=== PATIENT | female | born 1940 | race Caucasian/White ===

== ENCOUNTER 2021-12-28 17:17 | Inpatient (IN) | payer MEDICARE, MEDICAID, SELFPAY ==
--- NOTE | ~2021-12-28 | CT_ITS ---
EXAMINATION: CT ABDOMEN AND PELVIS WITH CONTRAST CLINICAL INFORMATION: Right upper quadrant/flank pain. COMPARISON: Ultrasound from today. TECHNIQUE: Multidetector volumetric images were obtained from the superior aspect of the liver through the pubic symphysis following administration 85 mL of Omnipaque 350 intravenous contrast. Sagittal and coronal reformatted images were obtained on the technologist's workstation. Oral contrast: No This CT examination was performed using dose optimization techniques as appropriate, variously including the following: *Automated exposure control *Adjustment of mA and/or kV according to patient size (this includes techniques or standardized protocols for targeted exams where dose is matched to indication/reason for exam; i.e. extremities or head) *Use of iterative reconstruction technique DLP: 563 mGy-cm FINDINGS: LUNG BASES: The visualized lung bases are unremarkable. LIVER, GALLBLADDER, AND BILIARY TREE: The liver is normal in size, shape, and attenuation. No focal hepatic lesion. There is intrahepatic and extrahepatic biliary ductal dilatation. Normal distention of the gallbladder with internal stones and sludge. No wall thickening or adjacent inflammation. PANCREAS: Unremarkable. SPLEEN: Unremarkable. ADRENAL GLANDS: Unremarkable. KIDNEYS AND URETERS: The kidneys are normal in size, shape, and attenuation. No hydronephrosis, hydroureter, or calculi seen. Right-sided extrarenal pelvis. No perinephric stranding. BLADDER: Limited evaluation due to artifact from left hip arthroplasty hardware. Partially distended with no gross abnormality. GASTROINTESTINAL TRACT: Tiny hiatal hernia. The stomach is otherwise unremarkable. Normal caliber small bowel. No obstruction. No colonic wall thickening or acute inflammation. Moderate colonic stool burden. Diffuse colonic diverticulosis. No diverticulitis. ABDOMINAL WALL: Small ventral abdominal wall hernia in the region of the umbilicus containing a portion of the transverse colon wall. LYMPH NODES: Normal. VASCULAR: Normal caliber aorta with moderate atherosclerotic calcification. PELVIC VISCERA: No pelvic mass. OSSEOUS STRUCTURES: No acute or suspicious osseous abnormality. Degenerative changes throughout the spine. Multilevel vacuum disc phenomenon. Total left hip arthroplasty without evidence of failure. Moderate degenerative change of the right hip. CT/CT abdomen pelvis w con IMPRESSION: Intrahepatic and extrahepatic biliary ductal dilatation again noted as seen on prior ultrasound. Cholelithiasis with gallbladder sludge. No inflammatory changes of the gallbladder. Diffuse colonic diverticulosis without diverticulitis. Small ventral abdominal wall hernia in the region of the umbilicus containing a portion of the transverse colon wall. No inflammatory changes. Fleischner guidelines were followed.
--- NOTE | ~2021-12-28 | MR_ITS ---
EXAMINATION: MR ABDOMEN WITHOUT CONTRAST CLINICAL INFORMATION: Choledocholithiasis COMPARISON: Previous abdominal ultrasound and CT of the abdomen from yesterday TECHNIQUE: MR abdomen is performed without gadolinium contrast. MRCP sequences were also performed. FINDINGS: LUNG BASES: The visualized lung bases are unremarkable. LIVER, GALLBLADDER, AND BILIARY TREE: The liver is normal in size, smooth in contour, and normal in signal. No focal hepatic lesion or biliary ductal dilatation is present. The gallbladder is upper normal in size. There are small gallstones. The gallbladder wall does not appear thickened or edematous. No pericholecystic fluid is seen. There is mild intrahepatic extrahepatic biliary duct dilatation. The common bile duct measures 9 mm. There is a small 3 mm round filling defect in the distal common bile duct suggestive of a common bile duct stone. PANCREAS: Pancreas is normal in signal. There is mild focal dilatation of the distal main pancreatic duct in the head of the pancreas measuring 4 to 5 mm. The remainder of the main pancreatic duct is normal in caliber. SPLEEN: Unremarkable. ADRENAL GLANDS: Unremarkable. KIDNEYS AND URETERS: There are bilateral renal peripelvic cysts. There may be a mild right UPJ obstruction. The kidneys are normal in size and shape. No left hydronephrosis. No perinephric stranding. GASTROINTESTINAL TRACT: There is diverticulosis of the colon. No bowel obstruction. No ascites or fluid collection. ABDOMINAL WALL: There are several small ventral or supraumbilical hernias containing fat. LYMPH NODES: No lymphadenopathy. VASCULAR: Unremarkable. OSSEOUS STRUCTURES: There are degenerative changes of the spine. Marrow signal normal. MR/MR MRCP IMPRESSION: Mild intra and extrahepatic biliary duct dilatation. 3 mm distal common bile duct stone. Upper normal-size gallbladder and small gallstones. No evidence of cholecystitis. Mild dilatation of the distal main pancreatic duct in the head of the pancreas. The main pancreatic duct and pancreas are otherwise normal. Bilateral peripelvic cysts and question mild right UPJ obstruction. Diverticulosis of the colon.
--- NOTE | ~2021-12-28 | US_ITS ---
EXAMINATION: US ABDOMEN LIMITED CLINICAL INFORMATION: Right upper quadrant pain. COMPARISON: None TECHNIQUE: Real-time imaging of the right upper quadrant abdominal viscera. FINDINGS: PANCREAS: The pancreatic head and body are unremarkable. The tail is obscured by gas. LIVER: Normal. The liver is normal in size. The liver contour is normal. Parenchymal echogenicity is normal. No focal hepatic lesion. There is no intrahepatic biliary duct dilatation seen. GALLBLADDER: Cholelithiasis. Gallbladder sludge noted. The gallbladder is physiologically distended without evidence of polyps, wall thickening or pericholecystic fluid. COMMON BILE DUCT: Prominent in caliber measuring 0.9 cm in diameter. There could be sludge in the duct. RIGHT KIDNEY: Normal. No hydronephrosis. No renal calculi or focal parenchymal lesions. The kidney measures 9.8 cm in maximum dimension. FREE FLUID: None. US/US abdomen limited IMPRESSION: Cholelithiasis with gallbladder sludge. Somewhat prominent common bile duct with possible internal sludge. No inflammatory change of the gallbladder.
--- NOTE | ~2021-12-28 | FL_ITS ---
EXAMINATION: XR FLUOROSCOPY WITH IMAGES CLINICAL INFORMATION: Fluoroscopy guidance for ERCP. COMPARISON: MR of the abdomen from yesterday TECHNIQUE: Fluoroscopy performed by Dr. Js Mooney. Fluoroscopy time: 3.5 minutes DAP: 0.8 mGycm2 Images: 18 FINDINGS: There is mild intrahepatic and extrahepatic biliary duct dilatation. A definite common bile duct stone is not appreciated on the submitted images. Final images demonstrate some decompression of the biliary system and passage of contrast into the duodenum. FL/FL guidance in OR IMPRESSION: Fluoroscopy guidance for ERCP.
[2021-12-28 19:24] VITALS: BP 167/83; PULSE 71; RESP 16; TEMP 36.6; O2SAT 99; BMI 25.7
[2021-12-28 19:51] LABS: MANUAL DIFF FLAG NO
[2021-12-28 19:53] LABS: Appearance Urine CLEAR; Basophils Percent Auto 0.2 % (0-2); Color Urine YELLOW; Eosinophils Absolute Auto 0.3 X10*3/uL (0.0-0.4); Eosinophils Percent Auto 2.1 % (0-4); Glucose Urine UA NEG (NEG); Hematocrit 41.2 % (37.0-47.0); Hemoglobin 13.6 g/dl (12.0-16.0); Imm Gran Abs Auto 0.05 X10*3/uL (0.00-0.03); Imm Gran Pct Auto 0.4 % (0.0-0.4); Leukocyte Esterase Urine TRACE (NEG); Lymphocytes Absolute Auto 1.6 X10*3/uL (1.2-4.9); Lymphocytes Percent Auto 12.5 % (20-40); Mean Corpuscular Hemoglobin 31.3 pg (27.0-33.0); Mean Corpuscular Volume 94.7 fL (80.0-98.0); Monocytes Absolute Auto 1.1 X10*3/uL (0.1-1.2); Monocytes Percent Auto 8.8 % (2-11); Neutrophils Absolute Auto 9.6 x10*3/uL (2.0-8.3); Nitrite Urine NEG (NEG); Platelet Count 727 X10*3/uL (160-400); Red Blood Count 4.35 X10*6/uL (4.20-5.50); Red Cell Distribution Width 13.7 % (11.0-16.0); UACC Culture Trigger YES; Urine Blood NEG (NEG); Urine Ketones NEG (NEG); Urine Protein NEG (NEG-TRACE); White Blood Count 12.6 X10*3/uL (4.8-10.8)
[2021-12-28 19:58] LABS: RBC Urine 0 /HPF (0); Squamous Epithelial Cell Urine 1+ /LPF
[2021-12-28 20:06] LABS: Alanine Aminotransferase 17 U/L (0-31); Albumin Level 4.2 g/dL (3.5-5.0); Alkaline Phosphatase 77 U/L (39-117); Anion Gap 12 (12-20); Aspartate Amino Transferase 24 U/L (5-31); Bilirubin Total 0.6 mg/dL (0.0-1.0); Blood Urea Nitrogen 15 mg/dL (9-16); Calcium 9.6 mg/dL (8.4-10.2); Carbon Dioxide 24 mmol/L (22-29); Chloride 108 mmol/L (96-108); Creatinine Clr Calc Pharmacy 58.5; Estimated Glomerular Filt Rate > 60; Glucose Random 95 mg/dL (60-115); Potassium 4.6 mmol/L (3.3-5.1); Sodium 139 mmol/L (135-145)
[2021-12-28 23:06] VITALS: BP 193/71; PULSE 76; RESP 16; O2SAT 98
--- NOTE | 2021-12-28 23:10 | PC.NURSE ---
BP 193/71 notified
--- NOTE | 2021-12-28 23:15 | ECG_ITS ---
Test Reason : HTN Blood Pressure : / mmHG Vent. Rate : 065 BPM Atrial Rate : 065 BPM P-R Int : 182 ms QRS Dur : 130 ms QT Int : 436 ms P-R-T Axes : 030 -09 080 degrees QTc Int : 453 ms Normal sinus rhythm Left bundle branch block Abnormal ECG When compared with ECG of 21-MAR-2018 21:34, Left bundle branch block is now Present Referred By: Nay Hutchinson Electronically Signed By:ANDERSON BUNDY
[2021-12-28 23:29] LABS: Lipase 14 U/L (8-78)
[2021-12-29] VITALS (12 sets, daily range): BP systolic 147–182; BP diastolic 61–81; PULSE 63–69; RESP 6–17; TEMP 36.4–36.7; O2SAT 95–99
[2021-12-29] MEDS: fentaNYL citrate/PF 100 MCG/2 ML VIAL 25 MCG IVPUSH (00:14)
[2021-12-29 00:38] LABS: Troponin-I High Sensitivity 13.7 ng/L (<3.5-17.0)
--- NOTE | 2021-12-29 01:05 | ED_ITS ---
HPI - Abdominal Pain General Chief Complaint: Abdominal Pain Stated Complaint: right side pain for 3 days Time Seen by Provider: 12/28/21 23:13 Source: patient and family Mode of arrival: ambulatory History of Present Illness HPI narrative: 81-year-old female without significant past medical history presents with complaints of intermittent crampy right upper quadrant pain for the past couple weeks and then over the past 4 days states that the pain has become very sharp and constant in nature and is more intense today. She states she has had some intermittent dizziness but otherwise denies nausea, vomiting, diarrhea and denies any urinary pain/burning/frequency. Patient denies any falls. Patient denies any shortness of breath, chest pain/palpitations. Related Data Allergies Allergy/AdvReac Type Severity Reaction Status Date / Time lactose [LACTOSE] Allergy Intermediate ABDOMINAL Unverified 07/24/20 14:42 PAIN codeine [CODEINE] Allergy Unknown HIVES, Unverified 07/24/20 14:42 HEADACHES, hives lactose intolerant Allergy Unknown Uncoded 07/16/16 00:00 Review of Systems Review of Systems Pertinent positives and negatives as stated in HPI 10 point review of systems is otherwise negative. PMFSH Past Medical History Source: nursing notes reviewed Medical History Emphysema of lung Endometrial cancer Surgical History H/O: hysterectomy History of hip replacement Social History Social History Advance Directives: No Physical Exam ED Vital Signs: Vital Signs - 24 hr 12/28/21 19:24 12/28/21 23:06 12/29/21 00:14 Temperature 97.8 F Pulse Rate 71 76 Respiratory Rate 16 16 16 Blood Pressure 167/83 H 193/71 H Pulse Oximetry 99 98 12/29/21 01:04 12/29/21 01:09 Temperature Pulse Rate Respiratory Rate 16 Blood Pressure 182/79 H Pulse Oximetry 98 BMI result Body Mass Index 25.7 VITAL SIGNS: Reviewed. GENERAL: Well developed, well nourished, in no acute distress. HEAD: Normocephalic/atraumatic, EYES: PERRLA, EOMI EARS: Ext canals without abnormality OROPHARYNX: no oral lesions noted, posterior pharynx clear LUNGS: Normal breath sounds. No adventitious sounds or accessory muscle use. SpO2<99> CARDIOVASCULAR: Regular rate and rhythm without noted murmurs, no JVD or lower extremity edema. ABDOMEN: Soft, patient was significant tenderness on palpation over right flank into right upper quadrant, non-distended with bowel sounds. MUSCULOSKELETAL: No tenderness, deformities, or effusions noted on gross inspection. EXTREMITIES: No cyanosis, clubbing or edema. SKIN: Inspection of the skin reveals no rashes NEUROLOGIC: Alert and oriented x 4. Strength and sensation to light touch were grossly intact x 4. Course Course Course Narrative: 81-year-old female with history and clinical presentation suggestive of possible cholecystitis and less likely felt to be pneumonia, choledocholithiasis, renal colic. On review of patient's EKG she is noted to have a new left bundle branch block when compared to EKG from 2018, however patient has no complaints of ches t pain. 0130: Suspect infection Review of all investigations consistent with cholelithiasis and with dilated CBD and the pain that patient has as well as a leukocytosis is all suggestive of possible choledocholithiasis versus resolving cholecystitis although there are no LFT derangements and there was no gallbladder wall thickening or pericholecystic fluid. Patient received antibiotics and on re-evaluation after having received pain medication she states that her pain has gone from 07/17 debbi n to 02/14. I discussed the case with the inpatient hospitalist who accepts admission. MDM - Abdominal Pain Lab Data Result diagrams: 12/28/21 19:44 12/28/21 19:44 Labs: Lab Results 12/28/21 12/28/21 12/28/21 Range/Units 19:44 19:44 19:44 WBC 12.6 H (4.8-10.8) X10*3/uL RBC 4.35 (4.20-5.50) X10*6/uL Hgb 13.6 (12.0-16.0) g/dl Hct 41.2 (37.0-47.0) % MCV 94.7 (80.0-98.0) fL MCH 31.3 (27.0-33.0) pg MCHC 33.0 (31.0-35.0) g/dl RDW 13.7 (11.0-16.0) % Plt Count 727 H (160-400) X10*3/uL MPV 10.0 (9.4-12.3) fL Immature Gran % (Auto) 0.4 (0.0-0.4) % Neut % (Auto) 76.0 H (45-73) % Lymph % (Auto) 12.5 L (20-40) % [place] % (Auto) 8.8 (2-11) % Eos % (Auto) 2.1 (0-4) % Baso % (Auto) 0.2 (0-2) % Lymph # (Auto) 1.6 (1.2-4.9) X10*3/uL [place] # (Auto) 1.1 (0.1-1.2) X10*3/uL Eos # (Auto) 0.3 (0.0-0.4) X10*3/uL Baso # (Auto) 0.0 (0.0-0.2) X10*3/uL Abs Immat Gran (auto) 0.05 H (0.00-0.03) X10*3/uL Absolute Neuts (auto) 9.6 H (2.0-8.3) x10*3/uL Absolute Nucleated RBC 0.000 (0.0-0.012) X10*3/uL Nucleated RBC % (auto) 0.0 (0.0-0.2) /100WBC Sodium 139 (135-145) mmol/L Potassium 4.6 (3.3-5.1) mmol/L Chloride 108 (96-108) mmol/L Carbon Dioxide 24 (22-29) mmol/L Anion Gap 12 (12-20) BUN 15 (9-16) mg/dL Creatinine 0.69 (0.5-1.4) mg/dL Estim Creat Clear Calc 58.5 Estimated GFR > 60 Random Glucose 95 (60-115) mg/dL Calcium 9.6 (8.4-10.2) mg/dL Total Bilirubin 0.6 (0.0-1.0) mg/dL AST 24 (5-31) U/L ALT 17 (0-31) U/L Alkaline Phosphatase 77 (39-117) U/L Troponin I High Sens (<3.5-17.0) ng/L Total Protein 7.0 (6.5-8.0) g/dL Albumin 4.2 (3.5-5.0) g/dL Lipase 14 (8-78) U/L Urine Color YELLOW Urine Appearance CLEAR Urine pH 6.0 (5.0-8.0) Ur Specific [place] 1.020 (1.005-1.025) Urine Protein NEG (NEG-TRACE) MG/DL Urine Glucose (UA) NEG (NEG) MG/DL Urine Ketones NEG (NEG) MG/DL Urine Blood NEG (NEG) Urine Nitrite NEG (NEG) Ur Leukocyte Esterase TRACE H (NEG) Urine RBC 0 (0) /HPF Urine WBC 5-9 H (0-4) /HPF Ur Squamous Epith Cells 1+ /LPF Urine Bacteria NONE /LPF 12/28/21 Range/Units 19:44 WBC (4.8-10.8) X10*3/uL RBC (4.20-5.50) X10*6/uL Hgb (12.0-16.0) g/dl Hct (37.0-47.0) % MCV (80.0-98.0) fL MCH (27.0-33.0) pg MCHC (31.0-35.0) g/dl RDW (11.0-16.0) % Plt Count (160-400) X10*3/uL MPV (9.4-12.3) fL Immature Gran % (Auto) (0.0-0.4) % Neut % (Auto) (45-73) % Lymph % (Auto) (20-40) % [place] % (Auto) (2-11) % Eos % (Auto) (0-4) % Baso % (Auto) (0-2) % Lymph # (Auto) (1.2-4.9) X10*3/uL [place] # (Auto) (0.1-1.2) X10*3/uL Eos # (Auto) (0.0-0.4) X10*3/uL Baso # (Auto) (0.0-0.2) X10*3/uL Abs Immat Gran (auto) (0.00-0.03) X10*3/uL Absolute Neuts (auto) (2.0-8.3) x10*3/uL Absolute Nucleated RBC (0.0-0.012) X10*3/uL Nucleated RBC % (auto) (0.0-0.2) /100WBC Sodium (135-145) mmol/L Potassium (3.3-5.1) mmol/L Chloride (96-108) mmol/L Carbon Dioxide (22-29) mmol/L Anion Gap (12-20) BUN (9-16) mg/dL Creatinine (0.5-1.4) mg/dL Estim Creat Clear Calc Estimated GFR Random Glucose (60-115) mg/dL Calcium (8.4-10.2) mg/dL Total Bilirubin (0.0-1.0) mg/dL AST (5-31) U/L ALT (0-31) U/L Alkaline Phosphatase (39-117) U/L Troponin I High Sens 13.7 (<3.5-17.0) ng/L Total Protein (6.5-8.0) g/dL Albumin (3.5-5.0) g/dL Lipase (8-78) U/L Urine Color Urine Appearance Urine pH (5.0-8.0) Ur Specific [place] (1.005-1.025) Urine Protein (NEG-TRACE) MG/DL Urine Glucose (UA) (NEG) MG/DL Urine Ketones (NEG) MG/DL Urine Blood (NEG) Urine Nitrite (NEG) Ur Leukocyte Esterase (NEG) Urine RBC (0) /HPF Urine WBC (0-4) /HPF Ur Squamous Epith Cells /LPF Urine Bacteria /LPF ECG Data Attestation: I personally reviewed and interpreted this ECG as follows: Prior ECG tracings: available for review Interpretation: NSR, HR-65, LBBB, no STEMI, [place] and QTC are within normal limits. Discharge Plan Discharge Clinical Impression: Right upper quadrant pain, Choledocholithiasis Patient Disposition: Admitted As Inpatient
[2021-12-29] MEDS: iohexoL 350 MG/ML 100 ML INFUS..BTL 85 ML IV (01:25)
--- NOTE | 2021-12-29 02:51 | PM.IMHP ---
History of Present Illness Date of Service: 12/29/21 Chief Complaint: abd pain this is an 81-year-old female with history of emphysema, endometrial cancer status post hysterectomy, and hyperlipidemia who presents to the hospital with complaints of right upper quadrant abdominal pain. Patient reports that her symptoms started 4 days ago, initially intermittent but today the pain was constant, 9/10, radiating to her back, she feels that is worse with food, alleviated by pain medication received in the ED, not associated with any fever or chills, no nausea or vomiting. Patient reports a history of gallstones, reports that she was recommended to have her gallbladder removed about a year ago but refused at that time because she had no significant pain. He denies any diarrhea constipation, reports urinary frequency that is been going on for months, no lower extremity edema. No headache or change in vision. No numbness or tingling or weakness of extremities. On arrival to the ED patient hemodynamically stable Labs are significant for WBC count of 12.6, otherwise unremarkable. UA is positive for leukocyte Estrace and some WBC. Abdominal pelvic CT shows intrahepatic and extrahepatic biliary ductal dilatation, cholelithiasis with gallbladder sludge, no inflammatory changes of the gallbladder. Abdominal ultrasound shows cholelithiasis with gallbladder sludge. Prominent common bile duct with possible internal sludge. Patient will be admitted for further management Review of Systems Review of Systems: Yes all other systems are reviewed and are negative [facility] Medical History (Updated 12/29/21 @ 06:08 by Donell Hart MD) Emphysema of lung Endometrial cancer Hyperlipidemia PVD (peripheral vascular disease) Family History (Updated 12/29/21 @ 06:05 by Donell Hart MD) Other No family history of coronary artery disease Surgical History (Updated 12/29/21 @ 06:05 by Donell Hart MD) H/O: hysterectomy History of hip replacement History of knee replacement Social History (Updated 12/29/21 @ 06:05 by Donell Hart MD) Alcohol intake: current Patient Tobacco Use Status: Former Tobacco user Use of substances other than those prescribed or required for medical reasons: No Advance Directives: No Meds Allergies Allergy/AdvReac Type Severity Reaction Status Date / Time lactose [LACTOSE] Allergy Intermediate ABDOMINAL Unverified 07/24/20 14:42 PAIN codeine [CODEINE] Allergy Unknown HIVES, Unverified 07/24/20 14:42 HEADACHES, hives lactose intolerant Allergy Unknown Uncoded 07/16/16 00:00 Home Medications Medication Instructions Recorded Confirmed Last Taken Type clopidogrel 75 mg tablet 1 tab PO DAILY 12/29/21 12/29/21 Unknown History rosuvastatin 20 mg tablet 1 tab PO DAILY 12/29/21 12/29/21 Unknown History umeclidinium 62.5 mcg/actuation 1 puff PO DAILY 12/29/21 12/29/21 Unknown History blister powder for inhalation (Incruse Ellipta) Physical Exam Vital Signs and Narrative: Vital Signs: Last Vital Signs Temp 97.8 F 12/28/21 19:24 Pulse 76 12/28/21 23:06 Resp 16 12/29/21 01:04 BP 182/79 H 12/29/21 01:09 Pulse Ox 98 12/29/21 01:09 BMI result Body Mass Index 25.7 Const: General: cooperative and no acute distress Orientation/consciousness: patient oriented x3 Eyes: General: appearance normal, both eyes and all related structures Pupils: Equal, round and reactive pupils present Resp: Effort & Inspection: normal respiratory effort Auscultation: clear to auscultation bilaterally Cardio: Rate: regular rate Rhythm: regular rhythm GI: Other: mild tenderness on deep palpation over right upper quadrant, no rebound or guarding Palpation (GI): Soft to palpation Auscultation: normal bowel sounds Skin: General skin exam: no rashes or lesions noted Neuro: General: patient oriented x3 Cranial nerves: Yes Equal, round and reactive pupils present Cognition (Neuro): normal cognition Extrem: General: Yes normal to inspection and Yes no pedal edema Results Labs CBC and Chem 7: 12/28/21 19:44 12/28/21 19:44 Labs: Laboratory Results - last 24 hr 12/28/21 12/28/21 12/28/21 19:44 19:44 19:44 MCV 94.7 MCH 31.3 MCHC 33.0 RDW 13.7 Plt Count 727 H MPV 10.0 Immature Gran % (Auto) 0.4 Neut % (Auto) 76.0 H Lymph % (Auto) 12.5 L [place] % (Auto) 8.8 Eos % (Auto) 2.1 Baso % (Auto) 0.2 Lymph # (Auto) 1.6 [place] # (Auto) 1.1 Eos # (Auto) 0.3 Baso # (Auto) 0.0 Abs Immat Gran (auto) 0.05 H Absolute Neuts (auto) 9.6 H Absolute Nucleated RBC 0.000 Nucleated RBC % (auto) 0.0 Anion Gap 12 Estim Creat Clear Calc 58.5 Estimated GFR > 60 Random Glucose 95 Calcium 9.6 Total Bilirubin 0.6 AST 24 ALT 17 Alkaline Phosphatase 77 Total Protein 7.0 Albumin 4.2 Lipase 14 Urine Color YELLOW Urine Appearance CLEAR Urine pH 6.0 Ur Specific [place] 1.020 Urine Protein NEG Urine Glucose (UA) NEG Urine Ketones NEG Urine Blood NEG Urine Nitrite NEG Ur Leukocyte Esterase TRACE H Urine RBC 0 Urine WBC 5-9 H Ur Squamous Epith Cells 1+ Urine Bacteria NONE Imaging Radiologist's Impressions: Impressions Abdomen Ultrasound 12/29/21 00:50 IMPRESSION: Cholelithiasis with gallbladder sludge. Somewhat prominent common bile duct with possible internal sludge. No inflammatory change of the gallbladder. Abdomen/Pelvis CT 12/29/21 01:25 IMPRESSION: Intrahepatic and extrahepatic biliary ductal dilatation again noted as seen on prior ultrasound. Cholelithiasis with gallbladder sludge. No inflammatory changes of the gallbladder. Diffuse colonic diverticulosis without diverticulitis. Small ventral abdominal wall hernia in the region of the umbilicus containing a portion of the transverse colon wall. No inflammatory changes. Fleischner guidelines were followed. Assessment and Plan (1) Right upper quadrant pain: Status: Acute (2) Choledocholithiasis: Status: Acute (3) Common bile duct dilatation: Status: Acute (4) UTI (urinary tract infection): Status: Acute Plan 81-year-old female with past medical history of asthma fizzy Rell hyperlipidemia presents to the hospital with complaints of abdominal pain in the right upper quadrant. # abdominal pain - likely secondary to cholelithiasis/ choledocholithiasis - no evidence of cholecystitis or cholangitis, patient afebrile, has no elevated bilirubin or LFTs - reports history of gallstones - will consult GI as well as General surgery for possible intervention in a.m. - keep NPO - given her leukocytosis will start her on IV antibiotics # UTI - positive UA - will start on IV antibiotics - follow cultures # history of peripheral vascular disease - continue Plavix # history of emphysema - not in exacerbation - continue home inhaler DVT prophylaxis: SCDs in anticipation of possible surgical intervention Quality Stroke Does the patient have a stroke diagnosis?: No VTE Prior VTE?: No VTE Risk Level:: Medical - moderate - high VTE Device Contraindication: N/A - Device Ordered VTE Drug Contraindication: Treatment Not Indicated
[2021-12-29 02:53] LABS: Lactic Acid 0.8 mmol/L (0.5-2.0)
[2021-12-29 03:22] LABS: COVID-19 Test Negative (Negative)
[2021-12-29] MEDS: cefTRIAXone sodium 1 GM in 0.9 % Sodium Chloride 50 ML IV ×2 (03:28→21:42)
[2021-12-29 06:22] LABS: MANUAL DIFF FLAG NO
[2021-12-29 06:25] LABS: Basophils Percent Auto 0.2 % (0-2); Eosinophils Absolute Auto 0.3 X10*3/uL (0.0-0.4); Eosinophils Percent Auto 2.4 % (0-4); Hematocrit 40.4 % (37.0-47.0); Hemoglobin 13.2 g/dl (12.0-16.0); Imm Gran Abs Auto 0.06 X10*3/uL (0.00-0.03); Imm Gran Pct Auto 0.5 % (0.0-0.4); Lymphocytes Absolute Auto 1.2 X10*3/uL (1.2-4.9); Lymphocytes Percent Auto 9.5 % (20-40); Mean Corpuscular HGB Conc 32.7 g/dl (31.0-35.0); Mean Corpuscular Hemoglobin 31.3 pg (27.0-33.0); Mean Corpuscular Volume 95.7 fL (80.0-98.0); Mean Platelet Volume 10.2 fL (9.4-12.3); Monocytes Absolute Auto 1.1 X10*3/uL (0.1-1.2); Monocytes Percent Auto 8.9 % (2-11); Neutrophils Absolute Auto 9.6 x10*3/uL (2.0-8.3); Neutrophils Percent Auto 78.5 % (45-73); Platelet Count 616 X10*3/uL (160-400); Red Blood Count 4.22 X10*6/uL (4.20-5.50); Red Cell Distribution Width 13.7 % (11.0-16.0); White Blood Count 12.3 X10*3/uL (4.8-10.8)
[2021-12-29 07:05] LABS: Anion Gap 11 (12-20); Blood Urea Nitrogen 13 mg/dL (9-16); Calcium 9.5 mg/dL (8.4-10.2); Carbon Dioxide 28 mmol/L (22-29); Chloride 106 mmol/L (96-108); Creatinine Clr Calc Pharmacy 61.2; Estimated Glomerular Filt Rate > 60; Glucose Random 80 mg/dL (60-115); Potassium 4.4 mmol/L (3.3-5.1); Sodium 141 mmol/L (135-145)
[2021-12-29 07:45] LABS: Alanine Aminotransferase 16 U/L (0-31); Albumin Level 3.9 g/dL (3.5-5.0); Alkaline Phosphatase 75 U/L (39-117); Aspartate Amino Transferase 22 U/L (5-31); Bilirubin Direct 0.3 mg/dL (0.0-0.5); Bilirubin Total 0.6 mg/dL (0.0-1.0); Total Protein 6.4 g/dL (6.5-8.0)
--- NOTE | 2021-12-29 10:05 | MHC.CM.PN ---
PT REPORTS SHE LIVES ALONE IN A SENIOR HOUSING COMPLEX PT REPORTS SHE HAS NO HOME SERVICES BUT THERE IS A NITRATOR OPERATOR AVAILABLE PRN PT REPORTS SHE DOES NOT USE DME FOR AMBULATION BUT DOES HAVE GRAB BARS AND A SHOWER SEAT IN HER BATHROOM. PT REPORTS SHE WAS SEEING LUCIE DORSEY FOR PRIMARY CARE HOWEVER HE LEFT THE PRACTICE IN NOVEMBER, SHE REPORTS SHE HAS AN APPOINTMENT WITH A NURSE PRACTITIONER AT THE OFFICE ON December BUT DOES NOT REMEMBER THE NAME. PT COMPLETED A NEW HCP TODAY SHE DOES NOT THINK SHE HAS A COPY OF THE ONE PREVIOUSLY COMPLETED. PT NAMED HER TWO DAUGHTERS, CAITIE ROMERO ([phone]) AND MIKY LEAL ([phone]) HER PRIMARY AND ALTERNATE AGENTS RESPECTIVELY PT REPORTS SHE RECEIVED TWO OF THE [employer] VACCINES FOR COVID-19 AND A MODERNA BOOSTER. IMM DELIVERED, COPY SENT TO [facility] CURRENT DC PLAN IS HOME WITH NO SERVICES FAMILY TO TRANSPORT
--- NOTE | 2021-12-29 10:52 | PM.CNGS ---
History of Present Illness Consult details Consult date: 12/29/21 <Maggie Turpin PA-C - Last Filed: 12/29/21 14:20> Reason for consult: gallstones (dilated CBD ) <Maggie Turpin PA-C - Last Filed: 12/29/21 14:20> Requesting physician: Donell Hart <Maggie Turpin PA-C - Last Filed: 12/29/21 14:20> Narrative: 81 year old female with PMH significant for emphysema, HLD, hx of uterine CA, who presented to the ED with complaints of RUQ pain. She reports this began 4-5 days ago. It initially was intermittent but it became more severe and constant prompting her to seek care in the ED yesterday. She developed nausea without vomiting when the pain increased. She denies any provoking factors but does endorse eating fattier foods before the pain became severe. She reports multiple prior episodes of similar RUQ beginning 3-4 years ago. She saw her PCP and was diagnosed with gallstones but didn't think the pain was bad enough to have surgery at that time. She reports occasional episodes that resolved quickly but reports the episodes have been increasing in frequency and severity over the past month. She reports she has not been eating as healthy over this time. She denies fever, chills, diarrhea, change in skin, urine or stool color. Work up in the ED included ABD US/CT scan which showed gallstones and dilated intra/extrahepatic biliary ducts. LFTs have been normal. She does have a leukocytosis. UA positive for WBCs and leukocyte esterase. She was admitted to the medicine service. She is on ceftriaxone for the UTI and surgery was consulted with the dilated CBD duct and gallstones. She does report mild improvement in pain with analgesics but it is still present. She does have emphysema and reports she can walk up two flights of stairs prior to developing shortness of breath. She is on plavix and her last dose was yesterday. <Maggie Turpin PA-C - Last Filed: 12/29/21 14:20> Review of Systems Constitutional: Constitutional: Denies chills, Denies fever(s), Denies malaise and Denies poor appetite <Maggie Turpin PA-C - Last Filed: 12/29/21 14:20> ENT: Denies dizziness <Maggie Turpin PA-C - Last Filed: 12/29/21 14:20> Cardiovascular: Cardiovascular: Denies chest pain, Denies palpitations and Reports dyspnea on exertion <Maggie Turpin PA-C - Last Filed: 12/29/21 14:20> Respiratory: Respiratory: Reports dyspnea on exertion <Maggie Turpin PA-C - Last Filed: 12/29/21 14:20> Gastrointestinal: Gastrointestinal: Reports as per HPI, Reports abdominal pain, Denies change in bowel habits, Denies diarrhea, Reports nausea and Denies vomiting <Maggie Turpin PA-C - Last Filed: 12/29/21 14:20> Genitourinary: Genitourinary: Denies hematuria, Denies dysuria and Reports pelvic pain <Maggie Turpin PA-C - Last Filed: 12/29/21 14:20> Integumentary/Breasts: Skin/Breast: Denies rash and Denies jaundice <Maggie Turpin PA-C - Last Filed: 12/29/21 14:20> Neurologic: Denies dizziness and Denies focal weakness <Maggie Turpin PA-C - Last Filed: 12/29/21 14:20> Endocrine: Endocrine: Denies palpitations <Maggie Turpin PA-C - Last Filed: 12/29/21 14:20> PMF Past Medical History Medical History: Medical History (Updated 12/29/21 @ 10:53 by Maggie Turpin PA-C) Emphysema of lung Endometrial cancer Hyperlipidemia PVD (peripheral vascular disease) <Maggie Turpin PA-C - Last Filed: 12/29/21 14:20> Family History Family History: Family History (Updated 12/29/21 @ 06:05 by Donell Hart MD) Other No family history of coronary artery disease <Maggie Turpin PA-C - Last Filed: 12/29/21 14:20> Surgical History Surgical History: Surgical History (Updated 12/29/21 @ 06:05 by Donell Hart MD) H/O: hysterectomy History of hip replacement History of knee replacement <Maggie Turpin PA-C - Last Filed: 12/29/21 14:20> Social History Social History: Social History (Updated 12/29/21 @ 06:05 by Donell Hart MD) Alcohol intake: current Patient Tobacco Use Status: Former Tobacco user Use of substances other than those prescribed or required for medical reasons: No Advance Directives: No service: No Current occupational status: retired <Maggie Turpin PA-C - Last Filed: 12/29/21 14:20> Meds Allergies/Adverse reactions: Allergies Allergy/AdvReac Type Severity Reaction Status Date / Time lactose [LACTOSE] Allergy Intermediate ABDOMINAL Unverified 07/24/20 14:42 PAIN codeine [CODEINE] Allergy Unknown HIVES, Unverified 07/24/20 14:42 HEADACHES, hives lactose intolerant Allergy Unknown Uncoded 07/16/16 00:00 <JCARLOS Liu Last Filed: 12/29/21 14:20> Active Medications: Current Medications Acetaminophen (Acetaminophen 325 Mg Tablet) 650 mg PO Q6H PRN PRN Reason: Pain, Mild (Pain Scale 1-3) Docusate Sodium (Docusate Sodium 100 Mg Capsule) 100 mg PO DAILY PRN PRN Reason: Constipation Ceftriaxone Sodium 1 gm/ (Sodium Chloride) 50 mls @ 100 mls/hr IV 2200 DANIEL Last Infusion: 12/29/21 03:58 Dose: Infused Documented by: Morphine Sulfate (Morphine Sulfate 4 Mg/Ml Cartridge) 4 mg IVPUSH Q4H PRN; Protocol PRN Reason: Pain, Severe (Pain Scale 7-10) Ondansetron HCl (Ondansetron Hcl 4 Mg/2 Ml Vial) 4 mg IVPUSH Q8H PRN PRN Reason: Nausea and Vomiting Sodium Chloride (0.9 % Sodium Chloride Flush 3 Ml Syringe) 3 ml IVFLUSH QSHIFT [facility] <JCARLOS Liu Last Filed: 12/29/21 14:20> Home medications: Home Medications Medication Instructions Recorded Confirmed Last Taken Type clopidogrel 75 mg tablet 1 tab PO DAILY 12/29/21 12/29/21 Unknown History rosuvastatin 20 mg tablet 1 tab PO DAILY 12/29/21 12/29/21 Unknown History umeclidinium 62.5 mcg/actuation 1 puff PO DAILY 12/29/21 12/29/21 Unknown History blister powder for inhalation (Incruse Ellipta) <Maggie Turpin PA-C Last Filed: 12/29/21 14:20> Physical Exam Vital Signs: Vital Signs: Last Vital Signs Temp 97.6 F 12/29/21 10:46 Pulse 69 12/29/21 10:46 Resp 17 12/29/21 10:46 BP 173/61 H 12/29/21 10:46 Pulse Ox 96 12/29/21 10:46 BMI result Body Mass Index 25.7 <Maggie Turpin PA-C Last Filed: 12/29/21 14:20> Const: General: comfortable, no acute distress and alert <Maggie Turpin PA-C Last Filed: 12/29/21 14:20> Orientation/consciousness: patient oriented x3 <Maggie Turpin PA-C Last Filed: 12/29/21 14:20> Resp: Effort & Inspection: normal respiratory effort and able to speak in complete sentences <Maggie Turpin PA-C Last Filed: 12/29/21 14:20> Cardio: Rate: regular rate <Maggie Turpin PA-C Last Filed: 12/29/21 14:20> GI: Inspection: No distended and Yes scar (midline, RLQ) <Maggie Turpin PA-C Last Filed: 12/29/21 14:20> Palpation (GI): Soft to palpation, Tenderness to palpation present (GI) in the RUQ and Lewis's sign positive and not rigid <Maggie Turpin PA-C Last Filed: 12/29/21 14:20> Percussion: Yes normal to percussion <Maggie Turpin PA-C Last Filed: 12/29/21 14:20> Skin: Other: warm and dry <JCARLOS Liu Last Filed: 12/29/21 14:20> General skin exam: no rashes or lesions noted <Maggie Turpin PA-C Last Filed: 12/29/21 14:20> Neuro: General: patient oriented x3 <Maggie Turpin PA-C - Last Filed: 12/29/21 14:20> Extrem: General: Yes no clubbing, cyanosis or edema <Maggie Turpin PA-C - Last Filed: 12/29/21 14:20> Results Labs Result diagrams: : 12/29/21 06:05 12/29/21 06:05 <Maggie Turpin PA-C - Last Filed: 12/29/21 14:20> Labs: Abnormal lab results 12/28/21 12/28/21 12/29/21 Range/Units 19:44 19:44 06:05 WBC 12.6 H 12.3 H (4.8-10.8) X10*3/uL Plt Count 727 H 616 H (160-400) X10*3/uL Immature Gran % (Auto) 0.5 H (0.0-0.4) % Neut % (Auto) 76.0 H 78.5 H (45-73) % Lymph % (Auto) 12.5 L 9.5 L (20-40) % Abs Immat Gran (auto) 0.05 H 0.06 H (0.00-0.03) X10*3/uL Absolute Neuts (auto) 9.6 H 9.6 H (2.0-8.3) x10*3/uL Anion Gap (12-20) Total Protein (6.5-8.0) g/dL Ur Leukocyte Esterase TRACE H (NEG) Urine WBC 5-9 H (0-4) /HPF 12/29/21 Range/Units 06:05 WBC (4.8-10.8) X10*3/uL Plt Count (160-400) X10*3/uL Immature Gran % (Auto) (0.0-0.4) % Neut % (Auto) (45-73) % Lymph % (Auto) (20-40) % Abs Immat Gran (auto) (0.00-0.03) X10*3/uL Absolute Neuts (auto) (2.0-8.3) x10*3/uL Anion Gap 11 L (12-20) Total Protein 6.4 L (6.5-8.0) g/dL Ur Leukocyte Esterase (NEG) Urine WBC (0-4) /HPF Short CBC 12/28/21 12/29/21 Range/Units 19:44 06:05 WBC 12.6 H 12.3 H (4.8-10.8) X10*3/uL Hgb 13.6 13.2 (12.0-16.0) g/dl Hct 41.2 40.4 (37.0-47.0) % Plt Count 727 H 616 H (160-400) X10*3/uL BMP 12/28/21 12/29/21 19:44 06:05 Sodium 139 141 Potassium 4.6 4.4 Chloride 108 106 Carbon Dioxide 24 28 BUN 15 13 Creatinine 0.69 0.66 Calcium 9.6 9.5 Liver Function 12/28/21 12/29/21 Range/Units 19:44 06:05 Total Bilirubin 0.6 0.6 (0.0-1.0) mg/dL Direct Bilirubin 0.3 (0.0-0.5) mg/dL AST 24 22 (5-31) U/L ALT 17 16 (0-31) U/L Alkaline Phosphatase 77 75 (39-117) U/L Albumin 4.2 3.9 (3.5-5.0) g/dL Urine 12/28/21 Range/Units 19:44 Urine Color YELLOW Urine Appearance CLEAR Urine pH 6.0 (5.0-8.0) Ur Specific [place] 1.020 (1.005-1.025) Urine Protein NEG (NEG-TRACE) MG/DL Urine Glucose (UA) NEG (NEG) MG/DL All other labs normal. <Maggie Turpin PA-C - Last Filed: 12/29/21 14:20> Assessment and Plan (1) Common bile duct dilatation: Status: Acute <JCARLOS Liu Last Filed: 12/29/21 14:20> (2) Gallstones: Status: Acute <JCARLOS Liu Last Filed: 12/29/21 14:20> (3) UTI (urinary tract infection): Status: Acute <JCARLOS Liu Last Filed: 12/29/21 14:20> Plan 81 year old female with complaints of RUQ pain for 4-5 days with gallstones, biliary ductal dilatation without signs of acute cholecystitis on imaging with normal LFTs. There are no signs suggestive of acute cholecystitis on imaging however she is tender in the RUQ with a positive lewis's sign and her history does suggest biliary colic, likely early acute cholecysitis. She may have also passed a stone causing the biliary ductal dilatation. Will order for MRCP to evaluate biliary system; agree with GI consult. She reports frustation with increasing frequency of RUQ pain and would like her gallbladder out. Will proceed with laparoscopic, possible open cholecystectomy if CBD clear. This would be in the next few days as she is on plavix and her last dose was yesterday. Await imaging for further plan/timeline. On ceftriaxone for UTI. Case discussed with Dr. Luque. <Maggie Turpin PA-C - Last Filed: 12/29/21 14:20> 81 year old female with complaints of RUQ pain for 4-5 days with gallstones, biliary ductal dilatation without signs of acute cholecystitis on imaging with normal LFTs. There are no signs suggestive of acute cholecystitis on imaging however she is tender in the RUQ with a positive lewis's sign and her history does suggest biliary colic, likely early acute cholecysitis. She may have also passed a stone causing the biliary ductal dilatation. Will order for MRCP to evaluate biliary system; agree with GI consult. She reports frustation with increasing frequency of RUQ pain and would like her gallbladder out. Will proceed with laparoscopic, possible open cholecystectomy if CBD clear. This would be in the next few days as she is on plavix and her last dose was yesterday. Await imaging for further plan/timeline. On ceftriaxone for UTI. Case discussed with Dr. Luque. Briefly, as noted above, patient is an 81-year-old female patient presenting with complaints of right upper quadrant abdominal pain 4-5 days increasing in severity associated with some nausea without vomiting. She subsequently presented to the emergency department when the pain did not improve. Workup in the emergency department with CT abdomen and pelvis revealed a mildly dilated common bile duct with possibility of gallstones within the common bile duct. Patient apparently has been having symptoms in her upper abdomen for several months but was awaiting a new PCP before having this evaluated. On examination the patient does have a tenderness in the epigastrium and right upper quadrant. There is a positive Lewis sign. Findings are suggestive of biliary colic. Agree with the above assessment and plan. GI consultation for evaluation of the possible common bile duct stones. Laparoscopic cholecystectomy could potentially be performed during this admission. Patient expressed understanding and agrees with the plan. <Chavo Luque MD - Last Filed: 12/29/21 15:26> Procedures Date of Service Date of Service: 12/29/21 <Maggie Turpin PA-C - Last Filed: 12/29/21 14:20>
[2021-12-29] MEDS: 0.9 % Sodium Chloride Flush 3 ML SYRINGE IVFLUSH (11:27)
[2021-12-29] MEDS: ondansetron HCL 4 MG/2 ML VIAL IVPUSH (11:27)
[2021-12-29] MEDS: Morphine Sulfate 4 MG/ML CARTRIDGE IVPUSH ×2 (11:27→16:00)
--- NOTE | 2021-12-29 14:54 | P.EN_ITS ---
Event Note Date of Service: 12/29/21 Event Note: Patient still has right upper quadrant pain, LFT seems normal Denies any nausea or vomiting or fever chills or chest pain or shortness of breath. Physical exam: Unchanged from H&P. Assessment plan: Please see H&P note In addition discussed the case with GI: Since LFTs are normal, recommended to hold off on MRI Continue IV Dilaudid for pain control, and pavilion cutter.o. Surgery evaluation noted- plan to hold Plavix, in anticipation of laparoscopic juláin.
--- NOTE | 2021-12-29 15:20 | P.CNGI_ITS ---
History of Present Illness Data of Consult Service Date: 12/29/21 Requesting physician: Donell Hart Primary Care Provider: Unknown Physician HPI Reason for consult: RUQ pain, dilated bile duct on abd CT scan 81 YF seen at [facility] ED early am today with abdominal pain: 81-year-old female without significant past medical history presents with complaints of intermittent crampy right upper quadrant pain for the past couple weeks and then over the past 4 days states that the pain has become very sharp and constant in nature and is more intense today.? She states she has had some intermittent dizziness but otherwise denies nausea, vomiting, diarrhea and denies any urinary pain/burning/frequency.? Patient denies any falls.? Patient denies any shortness of breath, chest pain/palpitations . He denies any diarrhea constipation,? reports urinary frequency that is been going on for? months, no lower extremity edema.? No headache or change in vision.? No numbness or tingling or weakness of extremities.? On arrival to the ED patient hemodynamically stable Labs showed WBC count of 12.6, otherwise unremarkable.? UA is positive for leukocyte Estrace and some WBC. Patient was admitted for further management Hx obtained from the patient with daughter at bedside. Pt reports being diagnosed with gallstones 2 yrs ago. She notes that she was advised to have her gallbladder removed about a year ago but refused at that time because she only had infrequent pain.? She has had intermittent self limited RUQ pain initially every 3-4 months increasing in frequency to every week. For the past 2-3 days she has noted constant throbbing RUQ pain radiating to her back. Pain was 10/10 in intensity when she came to the ED early this morning - worst pain she had ever had . Pt notes nausea with some regurgitation and denies fever chills and sweating She notes intermittent heartburn and takes OTC ranitidine. Pt denies recent change in appetite or weight or bowel habits - she has constipation with intermittent hard stools Patient denies major cardiac or pulmonary problems.. Pt is on Plavix for PVD. Patient denies known family history of colon polyps, colon cancer or other GI malignancies. Mom had gallstones. IMAGING STUDIES: 12/29/21 ABD US SHOWED: Cholelithiasis with gallbladder sludge. Somewhat prominent common bile duct with possible internal sludge. No inflammatory change of the gallbladder. 12/29/[address] SCAN SHOWED: Intrahepatic and extrahepatic biliary ductal dilatation again noted as seen on prior ultrasound. Cholelithiasis with gallbladder sludge. No inflammatory changes of the gallbladder. ? Diffuse colonic diverticulosis without diverticulitis.? ? Small ventral abdominal wall hernia in the region of the umbilicus containing a portion of the transverse colon wall. No inflammatory changes. Review of Systems Constitutional: Constitutional: Denies chills, Denies fever(s), Denies malaise and Denies poor appetite ENT: Denies dizziness Cardiovascular: Cardiovascular: Denies chest pain, Denies palpitations and Reports dyspnea on exertion Respiratory: Respiratory: Reports dyspnea on exertion Gastrointestinal: Gastrointestinal: Reports as per HPI, Reports abdominal pain, Denies change in bowel habits, Denies diarrhea, Reports nausea and Denies vomiting Genitourinary: Genitourinary: Denies hematuria, Denies dysuria and Reports pelvic pain Integumentary/Breasts: Skin/Breast: Denies rash and Denies jaundice Neurologic: Denies dizziness and Denies focal weakness Endocrine: Endocrine: Denies palpitations [facility] Past Medical History Medical History (Updated 12/29/21 @ 10:53 by Maggie Turpin PA-C) Emphysema of lung Endometrial cancer Hyperlipidemia PVD (peripheral vascular disease) Family History Family History (Updated 12/29/21 @ 06:05 by Donell Hart MD) Other No family history of coronary artery disease Surgical History Surgical History (Updated 12/29/21 @ 06:05 by Donell Hart MD) H/O: hysterectomy History of hip replacement History of knee replacement Social History Social History (Updated 12/29/21 @ 06:05 by Donell Hart MD) Alcohol intake: current Patient Tobacco Use Status: Former Tobacco user service: No Current occupational status: retired [employer] Allergies Allergy/AdvReac Type Severity Reaction Status Date / Time lactose [LACTOSE] Allergy Intermediate ABDOMINAL Verified 12/29/21 15:59 PAIN codeine [CODEINE] Allergy Unknown HIVES, Verified 12/29/21 15:59 HEADACHES, hives lactose intolerant Allergy Unknown Abdominal Uncoded 12/29/21 15:59 Pain Active Medications: Current Medications Acetaminophen (Acetaminophen 325 Mg Tablet) 650 mg PO Q6H PRN PRN Reason: Pain, Mild (Pain Scale 1-3) Docusate Sodium (Docusate Sodium 100 Mg Capsule) 100 mg PO DAILY PRN PRN Reason: Constipation Ceftriaxone Sodium 1 gm/ (Sodium Chloride) 50 mls @ 100 mls/hr IV 2200 DANIEL Last Infusion: 12/29/21 03:58 Dose: Infused Documented by: Morphine Sulfate (Morphine Sulfate 4 Mg/Ml Cartridge) 4 mg IVPUSH Q4H PRN; Protocol PRN Reason: Pain, Severe (Pain Scale 7-10) Last Admin: 12/29/21 11:27 Dose: 4 mg Documented by: Ondansetron HCl (Ondansetron Hcl 4 Mg/2 Ml Vial) 4 mg IVPUSH Q8H PRN PRN Reason: Nausea and Vomiting Last Admin: 12/29/21 11:27 Dose: 4 mg Documented by: Sodium Chloride (0.9 % Sodium Chloride Flush 3 Ml Syringe) 3 ml IVFLUSH QSHIFT [facility] Last Admin: 12/29/21 11:27 Dose: 3 ml Documented by: Home Medications Medication Instructions Recorded Confirmed Last Taken Type clopidogrel 75 mg tablet 1 tab PO DAILY 12/29/21 12/29/21 Unknown History rosuvastatin 20 mg tablet 1 tab PO DAILY 12/29/21 12/29/21 Unknown History umeclidinium 62.5 mcg/actuation 1 puff PO DAILY 12/29/21 12/29/21 Unknown History blister powder for inhalation (Incruse Ellipta) Physical Exam Vital Signs: Vital Signs: Last Vital Signs Temp 98.1 F 12/29/21 15:18 Pulse 65 12/29/21 15:18 Resp 14 12/29/21 15:18 BP 152/61 H 12/29/21 15:18 Pulse Ox 95 12/29/21 15:18 BMI result Body Mass Index 25.7 Const: General: no acute distress and anxious Nutritional Appearance: average body habitus Orientation/consciousness: patient oriented x3 Limitations: no limitations HENMT: Head: Yes normal to inspection Ears: hearing grossly normal bilaterally Mouth: Normal oral and palatal mucosa present Eyes: Sclerae: sclerae normal Pupils: Equal, round and reactive pupils present Neck: Neck: Yes normal visual inspection Chest: Chest palpation & inspection: normal inspection of the chest Resp: Effort & Inspection: normal respiratory effort Auscultation: clear to auscultation bilaterally Cardio: Palpation: normal PMI Rate: regular rate Rhythm: regular rhythm Heart sounds: S1 normal heart sound present, S2 normal heart sound present and no murmurs GI: Palpation (GI): Soft to palpation, Tenderness to palpation present (GI) (Moderate RUQ tenderness) and No hepatosplenomegaly present Auscultation: normal bowel sounds Rectal Exam - Female: deferred Skin: General skin exam: no rashes or lesions noted Neuro: General: patient oriented x3, gait normal and moves all extremities Cranial nerves: Yes Equal, round and reactive pupils present Psych: Appearance: grossly normal Mental Status: mental status grossly normal Results Labs CBC & Chem 7: 12/29/21 06:05 12/29/21 06:05 Labs: Short CBC 12/28/21 12/29/21 Range/Units 19:44 06:05 WBC 12.6 H 12.3 H (4.8-10.8) X10*3/uL Hgb 13.6 13.2 (12.0-16.0) g/dl Hct 41.2 40.4 (37.0-47.0) % Plt Count 727 H 616 H (160-400) X10*3/uL BMP 12/28/21 12/29/21 19:44 06:05 Sodium 139 141 Potassium 4.6 4.4 Chloride 108 106 Carbon Dioxide 24 28 BUN 15 13 Creatinine 0.69 0.66 Calcium 9.6 9.5 Liver Function 12/28/21 12/29/21 Range/Units 19:44 06:05 Total Bilirubin 0.6 0.6 (0.0-1.0) mg/dL Direct Bilirubin 0.3 (0.0-0.5) mg/dL AST 24 22 (5-31) U/L ALT 17 16 (0-31) U/L Alkaline Phosphatase 77 75 (39-117) U/L Albumin 4.2 3.9 (3.5-5.0) g/dL Urine 12/28/21 Range/Units 19:44 Urine Color YELLOW Urine Appearance CLEAR Urine pH 6.0 (5.0-8.0) Ur Specific [place] 1.020 (1.005-1.025) Urine Protein NEG (NEG-TRACE) MG/DL Urine Glucose (UA) NEG (NEG) MG/DL Microbiology Microbiology Results: Microbiology 12/28/21 19:54 Urine clean catch - Urine grant top Urine Culture - Preliminary No growth to date. Assessment and Plan (1) Gallstones: Status: Acute (2) Right upper quadrant pain: Status: Acute Plan 81 YF with hyperlipidemia, peripheral vascular disease (On Plavix) and gallstones admitted with iintermittent crampy RUQ pain for the past few weeks and more constant and sharp pain over the past 3-4 days. Abd US showed Cholelithiasis with gallbladder sludge and somewhat prominent common bile duct with possible internal sludge. Abd CT scan showed Intrahepatic and extrahepatic biliary ductal dilatation, Cholelithiasis with gallbladder sludge. No inflammatory changes of the gallbladder. LFTs and lipase were normal. Constant RUQ pain suggestive of cholecystitis. Dilated CBD and IHD most likely due to possible ampulary stenosis from long standing gallstone disease with passage of sludge through the papilla. RECOMMENDATIONS: 1. Agree with plans by surgery to proceed with Lap Junie 2. Continue symptomatic management with IV antiemetics and narcotics for pain control 3. Since patient's LFTs are normal, ERCP is not recommended (pt was discussed with Dr Mooney) Procedures Date of Service Date of Service: 12/29/21
[2021-12-29] MEDS: Lactated Ringers 1,000 ML 80 ML IVCONT (17:47)
[2021-12-29] MEDS: Acetaminophen 325 MG TABLET 650 MG PO (23:27)
[2021-12-30 00:53] VITALS: RESP 18
[2021-12-30] MEDS: Morphine Sulfate 4 MG/ML CARTRIDGE IVPUSH ×2 (00:53→08:58)
[2021-12-30 03:15] VITALS: BP 175/72; PULSE 64; RESP 16; TEMP 36.3; O2SAT 96
[2021-12-30 06:13] LABS: Anion Gap 17 (12-20); Blood Urea Nitrogen 15 mg/dL (9-16); Calcium 9.3 mg/dL (8.4-10.2); Carbon Dioxide 23 mmol/L (22-29); Chloride 104 mmol/L (96-108); Creatinine Clr Calc Pharmacy 56.1; Estimated Glomerular Filt Rate > 60; Glucose Random 64 mg/dL (60-115); Potassium 5.7 mmol/L (3.3-5.1); Sodium 138 mmol/L (135-145)
[2021-12-30] MEDS: Lactated Ringers 1,000 ML 80 ML IVCONT (06:23)
[2021-12-30 07:17] VITALS: BP 169/93; PULSE 67; RESP 18; TEMP 36.2; O2SAT 97
[2021-12-30] MEDS: 0.9 % Sodium Chloride 1,000 ML 80 ML IVCONT ×2 (08:27→22:12)
[2021-12-30] MEDS: Sodium Zirconium Cyclosilicate 10 GM POWD.PACK PO (08:27)
[2021-12-30] MEDS: LORazepam 2 MG/ML VIAL 0.5 MG IVPUSH (08:51)
[2021-12-30 11:33] VITALS: BP 154/68; PULSE 81; RESP 18; TEMP 36.6; O2SAT 94
--- NOTE | 2021-12-30 13:15 | HO.PM.IMPN ---
Subjective Subjective Date of Service: 12/30/21 Interval History: ruq pain Review of Systems Patient still has right upper quadrant pain, denies any chest pain or shortness of breath of. No fever or chills. No nausea or vomiting. Physical Exam Vital Signs: Vital Signs: Last Vital Signs Temp 97.8 F 12/30/21 11:33 Pulse 81 12/30/21 11:33 Resp 18 12/30/21 11:33 BP 154/68 H 12/30/21 11:33 Pulse Ox 94 12/30/21 11:33 BMI result Body Mass Index 25.7 Appearance: Alert.? Oriented X3.? not in distress.? Eyes: Pupils equal, round and reactive to light.eyes anicteric cvs: rrr, [id number] , no murmur res: clear to auscultation ,no rhonchii or wheezing abd: no rebound or guarding ,ruq pain, bs present. ext pulses present , no cyanosis. neuro: axo3 , nonfocal. Objective Data Active Medications Acetaminophen (Acetaminophen 325 Mg Tablet) 650 mg PO Q6H PRN PRN Reason: Pain, Mild (Pain Scale 1-3) Last Admin: 12/29/21 23:27 Dose: 650 mg Documented by: TODD Docusate Sodium (Docusate Sodium 100 Mg Capsule) 100 mg PO DAILY PRN PRN Reason: Constipation Ceftriaxone Sodium 1 gm/ (Sodium Chloride) 50 mls @ 100 mls/hr IV 2200 [facility] Last Infusion: 12/29/21 22:21 Dose: 0 mls/hr Documented by: TODD Sodium Chloride (Ns) 1,000 mls @ 80 mls/hr IVCONT .[id number] [facility] Last Admin: 12/30/21 08:27 Dose: 80 mls/hr Documented by: CONY Morphine Sulfate (Morphine Sulfate 2 Mg/Ml Cartridge) 2 mg IVPUSH Q3H PRN; Protocol PRN Reason: Pain, Severe (Pain Scale 7-10) Ondansetron HCl (Ondansetron Hcl 4 Mg/2 Ml Vial) 4 mg IVPUSH Q8H PRN PRN Reason: Nausea and Vomiting Last Admin: 12/29/21 11:27 Dose: 4 mg Documented by: JOSE G Oxycodone HCl (Oxycodone Hcl Immed Release 5 Mg Tablet) 5 mg PO Q4H PRN PRN Reason: Pain, Moderate (Pain Scale 4-6 Sodium Chloride (0.9 % Sodium Chloride Flush 3 Ml Syringe) 3 ml IVFLUSH QSHIFT [facility] Last Admin: 12/30/21 08:35 Dose: Not Given Documented by: CONY Non-Admin Reason: IV Running Labs CBC & Chem 7: 12/29/21 06:05 12/30/21 05:31 Labs: Laboratory Results - last 24 hr 12/30/21 05:31 Anion Gap 17 Estim Creat Clear Calc 56.1 Estimated GFR > 60 Random Glucose 64 Calcium 9.3 Microbiology Microbiology Results: Microbiology 12/28/21 19:54 Urine Culture - Final Urine clean catch - Urine grant top No growth. 12/29/21 03:24 Blood Culture - Preliminary Blood - Venous No growth after 24 hours. 12/29/21 02:36 Blood Culture - Preliminary Blood - Venous No growth after 24 hours. Assessment and Plan (1) UTI (urinary tract infection): Status: Acute (2) Right upper quadrant pain: Status: Acute Plan 81-year-old female with past medical history of asthma jose david Wittan hyperlipidemia presents to the hospital with complaints of abdominal pain in the right upper quadrant. 1. abdominal pain-? likely secondary to cholelithiasis/ choledocholithiasis -? no evidence of cholecystitis or cholangitis, patient afebrile, has no? elevated bilirubin or LFTs -? 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 Surgery evaluation noted- plan to hold Plavix, in anticipation of laparoscopic julián General surgery follwoin 2.? UTI -? positive UA -? will start on IV antibiotics -? follow cultures 3.? history of peripheral vascular disease -? continue? Plavix 4.? history of? emphysema - ? not in exacerbation -? continue home inhaler ?DVT prophylaxis:? SCDs in anticipation of possible surgical intervention Quality Stroke Does the patient have a stroke diagnosis?: No VTE Prior VTE?: No VTE Risk Level:: Medical - moderate - high VTE Device Contraindication: N/A - Device Ordered VTE Drug Contraindication: Treatment Not Indicated
--- NOTE | 2021-12-30 14:43 | PM.EVENT ---
Event Note Date of Service: 12/30/21 Event Note: GI Patient seen at the request of Dr Vasquez No complaints of abdominal pain at this time. vss lungs clear heart normal s1 s2 abdomen is soft and nontender labs and MRI reviewed. I discussed ERCP including risks and benefits with the patient She understands these and agrees to proceed. We will schedule for 01/01 as last dose of plavix was 12/28.
--- NOTE | 2021-12-30 14:48 | MHC.SHP ---
Pre-Procedural Eval Section A Date of Service: 12/30/21 The patient is an INPATIENT: Yes Changes since office visit: No Cold of Flu in the past 2 weeks, No New Medical Problems, No Changes in Medication and No Patient answered all questions The History & Physical has been completed within 30 days and I have reviewed it.: Yes Section B Chief Complaint: abd pain Allergies: Allergies Allergy/AdvReac Type Severity Reaction Status Date / Time lactose [LACTOSE] Allergy Intermediate ABDOMINAL Verified 12/29/21 15:59 PAIN codeine [CODEINE] Allergy Unknown HIVES, Verified 12/29/21 15:59 HEADACHES, hives lactose intolerant Allergy Unknown Abdominal Uncoded 12/29/21 15:59 Pain Plan I have reviewed the history and physical and performed a pertinent physical examination on my patient. No changes have occurred unless specified.
[2021-12-30 15:20] VITALS: BP 157/70; PULSE 69; RESP 16; TEMP 36; O2SAT 96
--- NOTE | 2021-12-30 15:21 | P.PNGS_ITS ---
Subjective Subjective Date of Service: 12/30/21 Interval history: Feels better today, less pain. Wondering about plan. Hungry. Physical Exam Vital Signs: Vital Signs: Last Vital Signs Temp 97.8 F 12/30/21 11:33 Pulse 81 12/30/21 11:33 Resp 18 12/30/21 11:33 BP 154/68 H 12/30/21 11:33 Pulse Ox 94 12/30/21 11:33 BMI result Body Mass Index 25.7 Const: General: comfortable, no acute distress and alert GI: Inspection: No distended Palpation (GI): Soft to palpation, Tenderness to palpation present (GI) Lewis's sign positive and no guarding Percussion: Yes normal to percussion Skin: General skin exam: no rashes or lesions noted Extrem: General: Yes no clubbing, cyanosis or edema Objective Data Active Medications Acetaminophen (Acetaminophen 325 Mg Tablet) 650 mg PO Q6H PRN PRN Reason: Pain, Mild (Pain Scale 1-3) Last Admin: 12/29/21 23:27 Dose: 650 mg Documented by: TODD Docusate Sodium (Docusate Sodium 100 Mg Capsule) 100 mg PO DAILY PRN PRN Reason: Constipation Ceftriaxone Sodium 1 gm/ (Sodium Chloride) 50 mls @ 100 mls/hr IV 2200 [facility] Last Infusion: 12/29/21 22:21 Dose: 0 mls/hr Documented by: TODD Sodium Chloride (Ns) 1,000 mls @ 80 mls/hr IVCONT .[id number] [facility] Last Admin: 12/30/21 08:27 Dose: 80 mls/hr Documented by: CONY Morphine Sulfate (Morphine Sulfate 2 Mg/Ml Cartridge) 2 mg IVPUSH Q3H PRN; Protocol PRN Reason: Pain, Severe (Pain Scale 7-10) Ondansetron HCl (Ondansetron Hcl 4 Mg/2 Ml Vial) 4 mg IVPUSH Q8H PRN PRN Reason: Nausea and Vomiting Last Admin: 12/29/21 11:27 Dose: 4 mg Documented by: JOSE G Oxycodone HCl (Oxycodone Hcl Immed Release 5 Mg Tablet) 5 mg PO Q4H PRN PRN Reason: Pain, Moderate (Pain Scale 4-6 Sodium Chloride (0.9 % Sodium Chloride Flush 3 Ml Syringe) 3 ml IVFLUSH QSHIFT [facility] Last Admin: 12/30/21 08:35 Dose: Not Given Documented by: CONY Non-Admin Reason: IV Running Labs CBC & Chem 7: 12/29/21 06:05 12/30/21 05:31 Labs: Laboratory Results - last 24 hr 12/30/21 05:31 Anion Gap 17 Estim Creat Clear Calc 56.1 Estimated GFR > 60 Random Glucose 64 Calcium 9.3 Microbiology Microbiology Results: Microbiology 12/28/21 19:54 Urine Culture - Final Urine clean catch - Urine grant top No growth. 12/29/21 03:24 Blood Culture - Preliminary Blood - Venous No growth after 24 hours. 12/29/21 02:36 Blood Culture - Preliminary Blood - Venous No growth after 24 hours. Procedures Date of Service Date of Service: 12/30/21 Progress Note: A&P Assessment and plan (1) Gallstones: Status: Acute (2) Choledocholithiasis: Status: Acute Plan 81 year old female admitted with RUQ pain found to have dilated biliary ducts with normal LFTs. MRCP today demonstrates distal CBD stone. Plan for ERCP . Plan for lap CCY tuesday to prevent recurrence. Can advance diet as tolerated for now. Cont to hold plavix. Fall Risk Details Current Medications: Current Medications Acetaminophen (Acetaminophen 325 Mg Tablet) 650 mg PO Q6H PRN PRN Reason: Pain, Mild (Pain Scale 1-3) Last Admin: 12/29/21 23:27 Dose: 650 mg Documented by: Docusate Sodium (Docusate Sodium 100 Mg Capsule) 100 mg PO DAILY PRN PRN Reason: Constipation Ceftriaxone Sodium 1 gm/ (Sodium Chloride) 50 mls @ 100 mls/hr IV 2200 [facility] Last Infusion: 12/29/21 22:21 Dose: Infused Documented by: Sodium Chloride (Ns) 1,000 mls @ 80 mls/hr IVCONT .[id number] [facility] Last Admin: 12/30/21 08:27 Dose: 80 mls/hr Documented by: Morphine Sulfate (Morphine Sulfate 2 Mg/Ml Cartridge) 2 mg IVPUSH Q3H PRN; Protocol PRN Reason: Pain, Severe (Pain Scale 7-10) Ondansetron HCl (Ondansetron Hcl 4 Mg/2 Ml Vial) 4 mg IVPUSH Q8H PRN PRN Reason: Nausea and Vomiting Last Admin: 12/29/21 11:27 Dose: 4 mg Documented by: Oxycodone HCl (Oxycodone Hcl Immed Release 5 Mg Tablet) 5 mg PO Q4H PRN PRN Reason: Pain, Moderate (Pain Scale 4-6 Sodium Chloride (0.9 % Sodium Chloride Flush 3 Ml Syringe) 3 ml IVFLUSH QSHIFT [facility] Last Admin: 12/30/21 08:35 Dose: Not Given Documented by: Time Spent With Patient Time: Total time spent is greater than 50% in coordination of care (as documented) at patient's floor/unit and/or counseling patient: Time with patient: 15 - 24 minutes Quality Stroke Does the patient have a stroke diagnosis?: No VTE Prior VTE?: No VTE Risk Level:: Medical - moderate - high VTE Device Contraindication: N/A - Device Ordered VTE Drug Contraindication: Treatment Not Indicated
--- NOTE | 2021-12-30 16:25 | MHC.CM.PN ---
EMR REVIEWED, PT HAD ERCP TODAY W/PLAN FOR [facility] TOMORROW 12/31, ANTIC D/C /TUE HOME NO SERVICES W/FAMILY FOR TRANSPORT.
[2021-12-30] MEDS: Morphine Sulfate 2 MG/ML CARTRIDGE IVPUSH (19:47)
[2021-12-30 19:50] VITALS: BP 174/78; PULSE 100; RESP 20; TEMP 36.5; O2SAT 95
[2021-12-30] MEDS: cefTRIAXone sodium 1 GM in 0.9 % Sodium Chloride 50 ML IV (22:11)
[2021-12-31] VITALS (8 sets, daily range): BP systolic 136–190; BP diastolic 56–84; PULSE 68–104; RESP 14–24; TEMP 36.6–37.1; O2SAT 95–96
[2021-12-31] MEDS: Morphine Sulfate 2 MG/ML CARTRIDGE IVPUSH ×2 (02:30→09:42)
[2021-12-31 06:11] LABS: INTERNATIONAL NORM RATIO 1.2 (0.9-1.1); Prothrombin Time 13.6 SEC (9.9-13.0)
--- NOTE | 2021-12-31 08:16 | PM.PNGS ---
Subjective Subjective Date of Service: 12/31/21 Interval history: Results of MRI discussed with the patient. Patient was able to tolerate some fish yesterday but then became nauseous and vomited. She feels the fish was not good. Physical Exam Vital Signs: Vital Signs: Last Vital Signs Temp 98.1 F 12/31/21 07:54 Pulse 104 H 12/31/21 07:54 Resp 18 12/31/21 07:54 BP 158/78 H 12/31/21 07:54 Pulse Ox 95 12/31/21 07:54 BMI result Body Mass Index 25.7 Const: General: no acute distress Nutritional Appearance: well nourished Orientation/consciousness: patient oriented x3 Limitations: no limitations Eyes: Sclerae: sclerae normal Resp: Other: Breathing comfortably on room air, no respiratory distress GI: Other: Soft, nontender to deep palpation. Normal bowel sounds. Skin: Other: Warm, dry, normal color Neuro: General: patient oriented x3 Extrem: Other: No edema Objective Data Active Medications Acetaminophen (Acetaminophen 325 Mg Tablet) 650 mg PO Q6H PRN PRN Reason: Pain, Mild (Pain Scale 1-3) Last Admin: 12/29/21 23:27 Dose: 650 mg Documented by: TODD Docusate Sodium (Docusate Sodium 100 Mg Capsule) 100 mg PO DAILY PRN PRN Reason: Constipation Ceftriaxone Sodium 1 gm/ (Sodium Chloride) 50 mls @ 100 mls/hr IV 2200 [facility] Last Infusion: 12/30/21 23:02 Dose: 100 mls/hr Documented by: MEGHANA Sodium Chloride (Ns) 1,000 mls @ 80 mls/hr IVCONT .[id number] [facility] Last Admin: 12/30/21 22:12 Dose: 80 mls/hr Documented by: MEGHANA Morphine Sulfate (Morphine Sulfate 2 Mg/Ml Cartridge) 2 mg IVPUSH Q3H PRN; Protocol PRN Reason: Pain, Severe (Pain Scale 7-10) Last Admin: 12/31/21 02:30 Dose: 2 mg Documented by: MEGHANA Ondansetron HCl (Ondansetron Hcl 4 Mg/2 Ml Vial) 4 mg IVPUSH Q8H PRN PRN Reason: Nausea and Vomiting Last Admin: 12/29/21 11:27 Dose: 4 mg Documented by: JOSE G Oxycodone HCl (Oxycodone Hcl Immed Release 5 Mg Tablet) 5 mg PO Q4H PRN PRN Reason: Pain, Moderate (Pain Scale 4-6 Sodium Chloride (0.9 % Sodium Chloride Flush 3 Ml Syringe) 3 ml IVFLUSH QSHIFT [facility] Last Admin: 12/31/21 00:56 Dose: Not Given Documented by: MEGHANA Non-Admin Reason: IV Running Labs CBC & Chem 7: 12/29/21 06:05 12/30/21 05:31 Labs: Laboratory Results - last 24 hr 12/31/21 05:35 PT 13.6 H INR 1.2 H Microbiology Microbiology Results: Microbiology 12/29/21 03:24 Blood Culture - Preliminary Blood - Venous No growth after 48 hours. 12/29/21 02:36 Blood Culture - Preliminary Blood - Venous No growth after 48 hours. 12/28/21 19:54 Urine Culture - Final Urine clean catch - Urine grant top No growth. Procedures Date of Service Date of Service: 12/31/21 Progress Note: A&P Assessment and plan (1) Choledocholithiasis: Status: Acute (2) Gallstones: Status: Acute Plan Patient is scheduled for ERCP on Tuesday. I reviewed the MRI findings with the patient explained the need for ERCP. She expressed understanding and agrees with the plan. We discussed laparoscopic cholecystectomy which could be performed soon after the ERCP if all goes well. I explained the procedure, risks, and alternatives, and she consents to the laparoscopic cholecystectomy. She will tentatively be scheduled for Tuesday. Fall Risk Details Current Medications: Current Medications Acetaminophen (Acetaminophen 325 Mg Tablet) 650 mg PO Q6H PRN PRN Reason: Pain, Mild (Pain Scale 1-3) Last Admin: 12/29/21 23:27 Dose: 650 mg Documented by: Docusate Sodium (Docusate Sodium 100 Mg Capsule) 100 mg PO DAILY PRN PRN Reason: Constipation Ceftriaxone Sodium 1 gm/ (Sodium Chloride) 50 mls @ 100 mls/hr IV 2200 [facility] Last Infusion: 12/30/21 23:02 Dose: Infused Documented by: Sodium Chloride (Ns) 1,000 mls @ 80 mls/hr IVCONT .[id number] [facility] Last Admin: 12/30/21 22:12 Dose: 80 mls/hr Documented by: Morphine Sulfate (Morphine Sulfate 2 Mg/Ml Cartridge) 2 mg IVPUSH Q3H PRN; Protocol PRN Reason: Pain, Severe (Pain Scale 7-10) Last Admin: 12/31/21 02:30 Dose: 2 mg Documented by: Ondansetron HCl (Ondansetron Hcl 4 Mg/2 Ml Vial) 4 mg IVPUSH Q8H PRN PRN Reason: Nausea and Vomiting Last Admin: 12/29/21 11:27 Dose: 4 mg Documented by: Oxycodone HCl (Oxycodone Hcl Immed Release 5 Mg Tablet) 5 mg PO Q4H PRN PRN Reason: Pain, Moderate (Pain Scale 4-6 Sodium Chloride (0.9 % Sodium Chloride Flush 3 Ml Syringe) 3 ml IVFLUSH [facility] Last Admin: 12/31/21 00:56 Dose: Not Given Documented by: Time Spent With Patient Time: Total time spent is greater than 50% in coordination of care (as documented) at patient's floor/unit and/or counseling patient: Time with patient: 15 - 24 minutes Quality Stroke Does the patient have a stroke diagnosis?: No VTE Prior VTE?: No VTE Risk Level:: Medical - moderate - high VTE Device Contraindication: N/A - Device Ordered VTE Drug Contraindication: Treatment Not Indicated
[2021-12-31 08:41] LABS: Anion Gap 13 (12-20); Blood Urea Nitrogen 13 mg/dL (9-16); Calcium 8.5 mg/dL (8.4-10.2); Carbon Dioxide 24 mmol/L (22-29); Chloride 104 mmol/L (96-108); Creatinine Clr Calc Pharmacy 64.1; Estimated Glomerular Filt Rate > 60; Glucose Random 101 mg/dL (60-115); Potassium 4.2 mmol/L (3.3-5.1); Sodium 137 mmol/L (135-145)
[2021-12-31] MEDS: Docusate Sodium 100 MG CAPSULE PO (09:42)
[2021-12-31] MEDS: 0.9 % Sodium Chloride 1,000 ML 80 ML IVCONT ×2 (10:48→21:39)
--- NOTE | 2021-12-31 12:03 | HO.PM.IMPN ---
Subjective Subjective Date of Service: 12/31/21 Interval History: ruq pain Review of Systems still has ruq pain similar to yesterday Patient denies any shortness of breath chest pain or fever or chills or cough or phlegm. Physical Exam Vital Signs: Vital Signs: Last Vital Signs Temp 98.3 F 12/31/21 11:37 Pulse 68 12/31/21 11:37 Resp 18 12/31/21 11:37 BP 147/63 H 12/31/21 11:37 Pulse Ox 96 12/31/21 11:37 BMI result Body Mass Index 25.7 Appearance: Alert.? Oriented X3.? not in distress.? Eyes: Pupils equal, round and reactive to light.eyes anicteric cvs: rrr, [id number] , no murmur res: clear to auscultation ,no rhonchii or wheezing abd: no rebound or guarding ,ruq pain, bs present. ext pulses present , no cyanosis. neuro: axo3 , nonfocal. Objective Data Active Medications Acetaminophen (Acetaminophen 325 Mg Tablet) 650 mg PO Q6H PRN PRN Reason: Pain, Mild (Pain Scale 1-3) Last Admin: 12/29/21 23:27 Dose: 650 mg Documented by: TODD Docusate Sodium (Docusate Sodium 100 Mg Capsule) 100 mg PO DAILY PRN PRN Reason: Constipation Last Admin: 12/31/21 09:42 Dose: 100 mg Documented by: DAVIS Ceftriaxone Sodium 1 gm/ (Sodium Chloride) 50 mls @ 100 mls/hr IV 2200 [facility] Last Infusion: 12/30/21 23:02 Dose: 100 mls/hr Documented by: MEGHANA Sodium Chloride (Ns) 1,000 mls @ 80 mls/hr IVCONT .[id number] [facility] Last Admin: 12/31/21 10:48 Dose: 80 mls/hr Documented by: DAVIS Morphine Sulfate (Morphine Sulfate 2 Mg/Ml Cartridge) 2 mg IVPUSH Q3H PRN; Protocol PRN Reason: Pain, Severe (Pain Scale 7-10) Last Admin: 12/31/21 09:42 Dose: 2 mg Documented by: DAVIS Ondansetron HCl (Ondansetron Hcl 4 Mg/2 Ml Vial) 4 mg IVPUSH Q8H PRN PRN Reason: Nausea and Vomiting Last Admin: 12/29/21 11:27 Dose: 4 mg Documented by: JOSE G Oxycodone HCl (Oxycodone Hcl Immed Release 5 Mg Tablet) 5 mg PO Q4H PRN PRN Reason: Pain, Moderate (Pain Scale 4-6 Sodium Chloride (0.9 % Sodium Chloride Flush 3 Ml Syringe) 3 ml IVFLUSH QSHIFT [facility] Last Admin: 12/31/21 10:51 Dose: Not Given Documented by: DAVIS Non-Admin Reason: IV Running Labs CBC & Chem 7: 12/29/21 06:05 12/31/21 08:13 Labs: Laboratory Results - last 24 hr 12/31/21 12/31/21 05:35 08:13 PT 13.6 H INR 1.2 H Anion Gap 13 Estim Creat Clear Calc 64.1 Estimated GFR > 60 Random Glucose 101 Calcium 8.5 D Microbiology Microbiology Results: Microbiology 12/29/21 03:24 Blood Culture - Preliminary Blood - Venous No growth after 48 hours. 12/29/21 02:36 Blood Culture - Preliminary Blood - Venous No growth after 48 hours. 12/28/21 19:54 Urine Culture - Final Urine clean catch - Urine grant top No growth. Assessment and Plan (1) UTI (urinary tract infection): Status: Acute (2) Right upper quadrant pain: Status: Acute (3) Choledocholithiasis: Status: Acute Plan 81-year-old female with past medical history of asthma fizzy Rell hyperlipidemia presents to the hospital with complaints of abdominal pain in the right upper quadrant. 1. abdominal pain-? likely secondary to cholelithiasis/ choledocholithiasis -? no evidence of cholecystitis or cholangitis, patient afebrile, has no? elevated bilirubin or LFTs -? 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 mri -? cbd stone possible ERCP in am Surgery evaluation noted- plan to hold Plavix, in anticipation of laparoscopic julián ?General surgery following 2.? UTI -? positive UA -? will start on IV antibiotics -? follow cultures 3.? history of peripheral vascular disease -? continue? Plavix 4.? history of? emphysema - ? not in exacerbation -? continue home inhaler ?DVT prophylaxis:? SCDs in anticipation of possible surgical intervention. Quality Stroke Does the patient have a stroke diagnosis?: No VTE Prior VTE?: No VTE Risk Level:: Medical - moderate - high VTE Device Contraindication: N/A - Device Ordered VTE Drug Contraindication: Treatment Not Indicated
--- NOTE | 2021-12-31 14:27 | MHC.CM.PN ---
EMR REVIEWED, PT HAD MRCP DONE YESTERDAY 12/30, PLAN FOR ERCP TOMORROW 01/01 AND POSSIBLE [facility] THURSDAY 01/04, PLAN FOR PT TO D/C HOME NO SERVICES PT HAS NOT HAD HER FIRST APPT W/NEW PCP, PT HAD APPT SCHEDULED FOR 01/04 HOWEVER PT MAY NEED TO RESCHEDULE IF SHE REMAINS INPT. CM WILL CONT TO FOLLOW D/C NEEDS
[2021-12-31] MEDS: amLODIPine Besylate 2.5 MG TABLET PO (18:03)
[2021-12-31] MEDS: cefTRIAXone sodium 1 GM in 0.9 % Sodium Chloride 50 ML IV (21:37)
[2022-01-01] VITALS (11 sets, daily range): BP systolic 141–193; BP diastolic 56–95; PULSE 71–98; RESP 16–20; TEMP 36.2–37.2; O2SAT 95–97
[2022-01-01 06:50] LABS: Anion Gap 14 (12-20); Blood Urea Nitrogen 8 mg/dL (9-16); Calcium 8.6 mg/dL (8.4-10.2); Carbon Dioxide 23 mmol/L (22-29); Chloride 108 mmol/L (96-108); Creatinine Clr Calc Pharmacy 70.8; Estimated Glomerular Filt Rate > 60; Glucose Random 76 mg/dL (60-115); Potassium 4.2 mmol/L (3.3-5.1); Sodium 141 mmol/L (135-145)
[2022-01-01 06:52] LABS: Alanine Aminotransferase 13 U/L (0-31); Albumin Level 3.5 g/dL (3.5-5.0); Alkaline Phosphatase 69 U/L (39-117); Aspartate Amino Transferase 22 U/L (5-31); Bilirubin Direct 0.3 mg/dL (0.0-0.5); Total Protein 5.9 g/dL (6.5-8.0)
--- NOTE | 2022-01-01 11:00 | P.CONAN_ITS ---
[facility] Active Problems Active Problems: All Active Problems (Updated 12/29/21 @ 10:53 by Maggie Turpin PA-C) Right upper quadrant pain (Acute) Choledocholithiasis (Acute) Common bile duct dilatation (Acute) UTI (urinary tract infection) (Acute) Gallstones (Acute) Past Medical History Medical History Emphysema of lung Endometrial cancer Hyperlipidemia PVD (peripheral vascular disease) Functional capacity: independent ambulation Family History Family History (Updated 12/29/21 @ 06:05 by Donell Hart MD) Other No family history of coronary artery disease Family history of problems with anesthesia: No Surgical History Surgical History (Updated 01/01/22 @ 09:20 by Edna Jones RN) H/O: hysterectomy History of hip replacement History of knee replacement Hx of discectomy History of Problems with Anesthesia: No Social History Social History (Updated 12/29/21 @ 06:05 by Donell Hart MD) Household Members: None Housing: Apartment Do you presently have visiting nurse or other home services: No Alcohol intake: current Alcohol intake frequency: holidays/special occasions only Patient Tobacco Use Status: Former Tobacco user Quit Date: 20 yr ago service: No Current occupational status: retired Meds Allergies Allergy/AdvReac Type Severity Reaction Status Date / Time lactose [LACTOSE] Allergy Intermediate ABDOMINAL Verified 01/01/22 09:20 PAIN codeine [CODEINE] Allergy Unknown HIVES, Verified 01/01/22 09:20 HEADACHES, hives lactose intolerant Allergy Unknown Abdominal Uncoded 12/29/21 15:59 Pain Active Medications: Current Medications Acetaminophen (Acetaminophen 325 Mg Tablet) 650 mg PO Q6H PRN PRN Reason: Pain, Mild (Pain Scale 1-3) Last Admin: 12/29/21 23:27 Dose: 650 mg Documented by: Amlodipine Besylate (Amlodipine Besylate 2.5 Mg Tablet) 2.5 mg PO DAILY [facility]; Protocol Last Admin: 12/31/21 18:03 Dose: 2.5 mg Documented by: Docusate Sodium (Docusate Sodium 100 Mg Capsule) 100 mg PO DAILY PRN PRN Reason: Constipation Last Admin: 12/31/21 09:42 Dose: 100 mg Documented by: Ceftriaxone Sodium 1 gm/ (Sodium Chloride) 50 mls @ 100 mls/hr IV 2200 [facility] Last Infusion: 12/31/21 22:53 Dose: Infused Documented by: Sodium Chloride (Ns) 1,000 mls @ 80 mls/hr IVCONT .[id number] [facility] Last Admin: 12/31/21 21:39 Dose: 80 mls/hr Documented by: Morphine Sulfate (Morphine Sulfate 2 Mg/Ml Cartridge) 2 mg IVPUSH Q3H PRN; Protocol PRN Reason: Pain, Severe (Pain Scale 7-10) Last Admin: 12/31/21 09:42 Dose: 2 mg Documented by: Ondansetron HCl (Ondansetron Hcl 4 Mg/2 Ml Vial) 4 mg IVPUSH Q8H PRN PRN Reason: Nausea and Vomiting Last Admin: 12/29/21 11:27 Dose: 4 mg Documented by: Oxycodone HCl (Oxycodone Hcl Immed Release 5 Mg Tablet) 5 mg PO Q4H PRN PRN Reason: Pain, Moderate (Pain Scale 4-6 Sodium Chloride (0.9 % Sodium Chloride Flush 3 Ml Syringe) 3 ml IVFLUSH QSHIFT [facility] Last Admin: 01/01/22 08:35 Dose: Not Given Documented by: Home Medications Medication Instructions Recorded Confirmed Last Taken Type clopidogrel 75 mg tablet 1 tab PO DAILY 12/29/21 12/29/21 Unknown History rosuvastatin 20 mg tablet 1 tab PO DAILY 12/29/21 12/29/21 Unknown History umeclidinium 62.5 mcg/actuation 1 puff PO DAILY 12/29/21 12/29/21 Unknown History blister powder for inhalation (Incruse Ellipta) Exam Exam Date and Time: January 01, 2022 1100 Height,Weight and Vital Signs: Height 5 ft 4 in Weight 68.039 kg Last Vital Signs Temp 98.4 F 01/01/22 09:21 Pulse 78 01/01/22 09:21 Resp 16 01/01/22 09:21 BP 178/66 H 01/01/22 09:21 Pulse Ox 97 01/01/22 09:21 Pertinent Lab Results Pertinent Lab Results: Laboratory Tests 12/28/21 12/28/21 12/28/21 19:44 19:44 19:44 WBC 12.6 H RBC 4.35 Hgb 13.6 Hct 41.2 MCV 94.7 MCH 31.3 MCHC 33.0 RDW 13.7 Plt Count 727 H MPV 10.0 Immature Gran % (Auto) 0.4 Neut % (Auto) 76.0 H Lymph % (Auto) 12.5 L [place] % (Auto) 8.8 Eos % (Auto) 2.1 Baso % (Auto) 0.2 Lymph # (Auto) 1.6 [place] # (Auto) 1.1 Eos # (Auto) 0.3 Baso # (Auto) 0.0 Abs Immat Gran (auto) 0.05 H Absolute Neuts (auto) 9.6 H Absolute Nucleated RBC 0.000 Nucleated RBC % (auto) 0.0 PT INR Sodium 139 Potassium 4.6 Chloride 108 Carbon Dioxide 24 Anion Gap 12 BUN 15 Creatinine 0.69 Estim Creat Clear Calc 58.5 Estimated GFR > 60 Random Glucose 95 Lactic Acid Calcium 9.6 Total Bilirubin 0.6 Direct Bilirubin AST 24 ALT 17 Alkaline Phosphatase 77 Troponin I High Sens Total Protein 7.0 Albumin 4.2 Lipase 14 Urine Color YELLOW Urine Appearance CLEAR Urine pH 6.0 Ur Specific [place] 1.020 Urine Protein NEG Urine Glucose (UA) NEG Urine Ketones NEG Urine Blood NEG Urine Nitrite NEG Ur Leukocyte Esterase TRACE H Urine RBC 0 Urine WBC 5-9 H Ur Squamous Epith Cells 1+ Urine Bacteria NONE COVID-19 ([facility]) COVID-19 Clin Com 12/28/21 12/29/21 12/29/21 19:44 02:36 02:49 WBC RBC Hgb Hct MCV MCH MCHC RDW Plt Count MPV Immature Gran % (Auto) Neut % (Auto) Lymph % (Auto) [place] % (Auto) Eos % (Auto) Baso % (Auto) Lymph # (Auto) [place] # (Auto) Eos # (Auto) Baso # (Auto) Abs Immat Gran (auto) Absolute Neuts (auto) Absolute Nucleated RBC Nucleated RBC % (auto) PT INR Sodium Potassium Chloride Carbon Dioxide Anion Gap BUN Creatinine Estim Creat Clear Calc Estimated GFR Random Glucose Lactic Acid 0.8 Calcium Total Bilirubin Direct Bilirubin AST ALT Alkaline Phosphatase Troponin I High Sens 13.7 Total Protein Albumin Lipase Urine Color Urine Appearance Urine pH Ur Specific [place] Urine Protein Urine Glucose (UA) Urine Ketones Urine Blood Urine Nitrite Ur Leukocyte Esterase Urine RBC Urine WBC Ur Squamous Epith Cells Urine Bacteria COVID-19 (RAND) Negative COVID-19 Clin Com See Note 12/29/21 12/29/21 12/30/21 06:05 06:05 05:31 WBC 12.3 H RBC 4.22 Hgb 13.2 Hct 40.4 MCV 95.7 MCH 31.3 MCHC 32.7 RDW 13.7 Plt Count 616 H MPV 10.2 Immature Gran % (Auto) 0.5 H Neut % (Auto) 78.5 H Lymph % (Auto) 9.5 L [place] % (Auto) 8.9 Eos % (Auto) 2.4 Baso % (Auto) 0.2 Lymph # (Auto) 1.2 [place] # (Auto) 1.1 Eos # (Auto) 0.3 Baso # (Auto) 0.0 Abs Immat Gran (auto) 0.06 H Absolute Neuts (auto) 9.6 H Absolute Nucleated RBC 0.000 Nucleated RBC % (auto) 0.0 PT INR Sodium 141 138 Potassium 4.4 5.7 H D Chloride 106 104 Carbon Dioxide 28 23 Anion Gap 11 L 17 BUN 13 15 Creatinine 0.66 0.72 Estim Creat Clear Calc 61.2 56.1 Estimated GFR > 60 > 60 Random Glucose 80 64 Lactic Acid Calcium 9.5 9.3 Total Bilirubin 0.6 Direct Bilirubin 0.3 AST 22 ALT 16 Alkaline Phosphatase 75 Troponin I High Sens Total Protein 6.4 L Albumin 3.9 Lipase Urine Color Urine Appearance Urine pH Ur Specific [place] Urine Protein Urine Glucose (UA) Urine Ketones Urine Blood Urine Nitrite Ur Leukocyte Esterase Urine RBC Urine WBC Ur Squamous Epith Cells Urine Bacteria COVID-19 ([facility]) COVID-19 Clin Com 12/31/21 12/31/21 01/01/22 05:35 08:13 05:59 WBC RBC Hgb Hct MCV MCH MCHC RDW Plt Count MPV Immature Gran % (Auto) Neut % (Auto) Lymph % (Auto) [place] % (Auto) Eos % (Auto) Baso % (Auto) Lymph # (Auto) [place] # (Auto) Eos # (Auto) Baso # (Auto) Abs Immat Gran (auto) Absolute Neuts (auto) Absolute Nucleated RBC Nucleated RBC % (auto) PT 13.6 H INR 1.2 H Sodium 137 141 Potassium 4.2 D 4.2 Chloride 104 108 Carbon Dioxide 24 23 Anion Gap 13 14 BUN 13 8 L Creatinine 0.63 0.57 Estim Creat Clear Calc 64.1 70.8 Estimated GFR > 60 > 60 Random Glucose 101 76 Lactic Acid Calcium 8.5 D 8.6 Total Bilirubin Direct Bilirubin AST ALT Alkaline Phosphatase Troponin I High Sens Total Protein Albumin Lipase Urine Color Urine Appearance Urine pH Ur Specific [place] Urine Protein Urine Glucose (UA) Urine Ketones Urine Blood Urine Nitrite Ur Leukocyte Esterase Urine RBC Urine WBC Ur Squamous Epith Cells Urine Bacteria COVID-19 ([facility]) COVID-19 Clin Com 01/01/22 06:14 WBC RBC Hgb Hct MCV MCH MCHC RDW Plt Count MPV Immature Gran % (Auto) Neut % (Auto) Lymph % (Auto) [place] % (Auto) Eos % (Auto) Baso % (Auto) Lymph # (Auto) [place] # (Auto) Eos # (Auto) Baso # (Auto) Abs Immat Gran (auto) Absolute Neuts (auto) Absolute Nucleated RBC Nucleated RBC % (auto) PT INR Sodium Potassium Chloride Carbon Dioxide Anion Gap BUN Creatinine Estim Creat Clear Calc Estimated GFR Random Glucose Lactic Acid Calcium Total Bilirubin 1.0 Direct Bilirubin 0.3 AST 22 ALT 13 Alkaline Phosphatase 69 Troponin I High Sens Total Protein 5.9 L Albumin 3.5 Lipase Urine Color Urine Appearance Urine pH Ur Specific [place] Urine Protein Urine Glucose (UA) Urine Ketones Urine Blood Urine Nitrite Ur Leukocyte Esterase Urine RBC Urine WBC Ur Squamous Epith Cells Urine Bacteria COVID-19 ([facility]) COVID-19 Clin Com Airway Mallampati Class: II TM Dist: >3cm Neck ROM: Full Denture: Upper and Lower Heart: ok Lungs: ok Assessment and Plan Final Anesthetic Review Family History of Problems with Anesthesia: No History of Problems with Anesthesia: No NPO: Yes ASA Class: IV Final Preanesthetic Review: No Changes in Pt Med Stat, Meds/Allgs Chart Reviewed, Consent Obtained/Reviewed and Anes Risks/Benef Reviewed Patient Risk: High Procedure Risk: High Anesthetic Plan Anesthetic Plan: MAC: and Agree w/ Assess. and Plan Disposition: Standard PACU
--- NOTE | 2022-01-01 11:01 | P.PNIM_ITS ---
Subjective Subjective Date of Service: 01/01/22 Interval History: Choledocholithiasis Review of Systems Patient still has right upper quadrant pain, has nausea Denies any chest pain or shortness of breath or fever or chills Physical Exam Vital Signs: Vital Signs: Last Vital Signs Temp 98.4 F 01/01/22 09:21 Pulse 78 01/01/22 09:21 Resp 16 01/01/22 09:21 BP 178/66 H 01/01/22 09:21 Pulse Ox 97 01/01/22 09:21 BMI result Body Mass Index 25.7 Appearance: Alert.? Oriented X3.? not in distress.? Eyes: Pupils equal, round and reactive to light.eyes anicteric cvs: rrr, [id number] , no murmur res: clear to auscultation ,no rhonchii or wheezing abd: no rebound or guarding ,ruq pain, bs present. ext pulses present , no cyanosis. neuro: axo3 , nonfocal. Objective Data Active Medications Acetaminophen (Acetaminophen 325 Mg Tablet) 650 mg PO Q6H PRN PRN Reason: Pain, Mild (Pain Scale 1-3) Last Admin: 12/29/21 23:27 Dose: 650 mg Documented by: TODD Amlodipine Besylate (Amlodipine Besylate 2.5 Mg Tablet) 2.5 mg PO DAILY [facility]; Protocol Last Admin: 12/31/21 18:03 Dose: 2.5 mg Documented by: ROBERT Docusate Sodium (Docusate Sodium 100 Mg Capsule) 100 mg PO DAILY PRN PRN Reason: Constipation Last Admin: 12/31/21 09:42 Dose: 100 mg Documented by: DAVIS Ceftriaxone Sodium 1 gm/ (Sodium Chloride) 50 mls @ 100 mls/hr IV 2200 [facility] Last Infusion: 12/31/21 22:53 Dose: 100 mls/hr Documented by: MEGHANA Sodium Chloride (Ns) 1,000 mls @ 80 mls/hr IVCONT .[id number] [facility] Last Admin: 12/31/21 21:39 Dose: 80 mls/hr Documented by: MEGHANA Morphine Sulfate (Morphine Sulfate 2 Mg/Ml Cartridge) 2 mg IVPUSH Q3H PRN; Protocol PRN Reason: Pain, Severe (Pain Scale 7-10) Last Admin: 12/31/21 09:42 Dose: 2 mg Documented by: DAVIS Ondansetron HCl (Ondansetron Hcl 4 Mg/2 Ml Vial) 4 mg IVPUSH Q8H PRN PRN Reason: Nausea and Vomiting Last Admin: 12/29/21 11:27 Dose: 4 mg Documented by: JOSE G Oxycodone HCl (Oxycodone Hcl Immed Release 5 Mg Tablet) 5 mg PO Q4H PRN PRN Reason: Pain, Moderate (Pain Scale 4-6 Sodium Chloride (0.9 % Sodium Chloride Flush 3 Ml Syringe) 3 ml IVFLUSH QSHIFT [facility] Last Admin: 01/01/22 08:35 Dose: Not Given Documented by: CHARLES Non-Admin Reason: IV Running Labs CBC & Chem 7: 12/29/21 06:05 01/01/22 05:59 Labs: Laboratory Results - last 24 hr 01/01/22 01/01/22 05:59 06:14 Anion Gap 14 Estim Creat Clear Calc 70.8 Estimated GFR > 60 Random Glucose 76 Calcium 8.6 Total Bilirubin 1.0 Direct Bilirubin 0.3 AST 22 ALT 13 Alkaline Phosphatase 69 Total Protein 5.9 L Albumin 3.5 Assessment and Plan (1) UTI (urinary tract infection): Status: Acute (2) Right upper quadrant pain: Status: Acute (3) Choledocholithiasis: Status: Acute Plan 81-year-old female with past medical history of asthma fizzy Rell hyperlipidemia presents to the hospital with complaints of abdominal pain in the right upper quadrant. 1. abdominal pain-? likely secondary to cholelithiasis/ choledocholithiasis -? no evidence of cholecystitis or cholangitis, patient afebrile, has no? elevated bilirubin or LFTs -? reports history of gallstones Continue IV Dilaudid for pain control, and spring former.o, gentle hydration. mri -? cbd stone possible ERCP in am followed by cholecystectomy as per surgery hold Plavix, in anticipation of laparoscopic julián ?General surgery following 2.? UTI -? positive UA -? will start on IV antibiotics -? follow cultures 3.? history of peripheral vascular disease -? continue? Plavix 4.? history of? emphysema - ? not in exacerbation -? continue home inhaler ?DVT prophylaxis:? SCDs in anticipation of possible surgical intervention. Quality Stroke Does the patient have a stroke diagnosis?: No VTE Prior VTE?: No VTE Risk Level:: Medical - moderate - high VTE Device Contraindication: N/A - Device Ordered VTE Drug Contraindication: Treatment Not Indicated
--- NOTE | 2022-01-01 12:17 | PM.OP ---
Brief Operative Note Date of Service: 01/01/22 Pre-op diagnosis: abnormal mrcp Post-op diagnosis: same (normal ercp) Procedure: ercp Surgeon: Js Mooney Anesthesia: MAC Was an Applications Programmer used for this Procedure?: No Estimated blood loss (mL): 0 Pathology: none sent Condition: stable Disposition: PACU
--- NOTE | 2022-01-01 12:18 | PM.EVENT ---
Event Note Date of Service: 01/01/22 Event Note: ERCP dictated No filling defect seen on cholantiography 8mm sphincterotomy done without complications. balloon sweeps showed no stone. rec: advance to lo fat diet. ccy per Dr. Luque
--- NOTE | 2022-01-01 12:42 | OP_ITS ---
SURGEON: Js Mooney MD INDICATIONS: Abnormal MRCP PREOPERATIVE DIAGNOSIS: POSTOPERATIVE DIAGNOSIS: PROCEDURE PERFORMED: Endoscopic retrograde cholangiopancreatography with sphincterotomy. ESTIMATED BLOOD LOSS: COMPLICATIONS: ANESTHESIA: ASSISTANTS: SPECIMENS: MEDICATIONS: Monitored anesthesia care. PROCEDURE DESCRIPTION: A history and physical were performed. The risks and benefits of the procedure were explained to the patient. Informed consent was obtained. The patient was placed in a prone position with a pillow under the right shoulder. The Olympus therapeutic duodenoscope was introduced into the esophagus, stomach, and duodenum. Examination was performed. The scope was removed. She tolerated the procedure well and was transferred to recovery area in stable condition. FINDINGS: Endoscopy: Limited examination of the esophagus, stomach, and duodenum did show a nonobstructive Schatzki ring and a small hiatal hernia. The major papilla appeared normal with drainage of clear yellow bile. The common bile duct was cannulated with a guidewire and sphincterotome. Cholangiography showed no definite filling defects and some images showed a slight shelf at the distal common bile duct, which likely accounts for the MR findings. A sphincterotomy was performed to about 8 mm with no immediate complications. Multiple balloon sweeps of the common duct showed no stone material. There was excellent drainage of clear yellow bile at the termination of the procedure. The intrahepatic bile ducts appeared normal. The cystic duct was noted to fill. No pancreatogram was attempted or obtained. IMPRESSION: Normal endoscopic retrograde cholangiopancreatography. RECOMMENDATION: 1. Advanced diet over the weekend. 2. Laparoscopic cholecystectomy per Dr. Luque. MD IVETT Martin/CESARIO / [id number] [facility]ALS[facility]
--- NOTE | 2022-01-01 15:09 | MHC.CM.PN ---
EMR REVIEWED, PT HAD ERCP DONE TODAY, PLAN TO ADVANCE DIET THROUGH W/E AND ALOK EDWARDS ON TUESDAY PER SURGICAL, ALOK PT WILL BE ABLE TO D/C HOME NO SERVICES TUE/ NEXT WK.
[2022-01-01] MEDS: 0.9 % Sodium Chloride Flush 3 ML SYRINGE IVFLUSH (17:59)
[2022-01-01] MEDS: Morphine Sulfate 2 MG/ML CARTRIDGE IVPUSH ×2 (18:26→23:22)
[2022-01-01] MEDS: oxyCODONE HCl Immed Release 5 MG TABLET PO (19:46)
[2022-01-01] MEDS: HYDROmorphone HCl 0.5 MG/0.5 ML SYRINGE IVPUSH (20:34)
[2022-01-01] MEDS: cefTRIAXone sodium 1 GM in 0.9 % Sodium Chloride 50 ML IV (23:19)
[2022-01-01] MEDS: 0.9 % Sodium Chloride 1,000 ML 80 ML IVCONT (23:25)
[2022-01-02] VITALS (7 sets, daily range): BP systolic 153–179; BP diastolic 67–89; PULSE 76–88; RESP 12–20; TEMP 36.3–37.4; O2SAT 94–98
[2022-01-02] MEDS: Morphine Sulfate 2 MG/ML CARTRIDGE IVPUSH ×2 (05:29→20:54)
[2022-01-02 06:26] LABS: Hematocrit 37.9 % (37.0-47.0); Hemoglobin 12.4 g/dl (12.0-16.0); Mean Corpuscular HGB Conc 32.7 g/dl (31.0-35.0); Mean Corpuscular Volume 94.8 fL (80.0-98.0); Mean Platelet Volume 10.7 fL (9.4-12.3); Platelet Count 300 X10*3/uL (160-400); Red Cell Distribution Width 13.5 % (11.0-16.0); White Blood Count 13.5 X10*3/uL (4.8-10.8)
[2022-01-02 07:00] LABS: Alanine Aminotransferase 13 U/L (0-31); Albumin Level 3.4 g/dL (3.5-5.0); Alkaline Phosphatase 66 U/L (39-117); Aspartate Amino Transferase 21 U/L (5-31); Bilirubin Direct 0.3 mg/dL (0.0-0.5); Bilirubin Total 0.8 mg/dL (0.0-1.0); Total Protein 5.8 g/dL (6.5-8.0)
[2022-01-02] MEDS: 0.9 % Sodium Chloride Flush 3 ML SYRINGE IVFLUSH (09:10)
[2022-01-02] MEDS: amLODIPine Besylate 5 MG TABLET PO (09:10)
--- NOTE | 2022-01-02 11:09 | HO.PM.IMPN ---
Subjective Subjective Date of Service: 01/02/22 Interval History: Abdominal pain, choledocholithiasis. Review of Systems Patient had ERCP done yesterday, still has abdominal pain with eating, feels nauseated. Says that she cannot tolerate diet. Denies any chest pain or shortness of breath or fever chills. Physical Exam Vital Signs: Vital Signs: Last Vital Signs Temp 97.3 F 01/02/22 07:27 Pulse 77 01/02/22 07:27 Resp 18 01/02/22 07:27 BP 177/88 H 01/02/22 07:27 Pulse Ox 95 01/02/22 07:27 BMI result Body Mass Index 25.7 Appearance: Alert.? Oriented X3.? not in distress.? Eyes: Pupils equal, round and reactive to light.eyes anicteric cvs: rrr, [id number] , no murmur res: clear to auscultation ,no rhonchii or wheezing abd: no rebound or guarding ,still has ruq pain, bs present. ext pulses present , no cyanosis. neuro: axo3 , nonfocal. Objective Data Active Medications Acetaminophen (Acetaminophen 325 Mg Tablet) 650 mg PO Q6H PRN PRN Reason: Pain, Mild (Pain Scale 1-3) Last Admin: 12/29/21 23:27 Dose: 650 mg Documented by: TODD Acetaminophen (Acetaminophen 325 Mg Tablet) 650 mg PO ONCE PRN PRN Reason: Pain, Mild (Pain Scale 1-3) Amlodipine Besylate (Amlodipine Besylate 5 Mg Tablet) 5 mg PO DAILY [facility]; Protocol Last Admin: 01/02/22 09:10 Dose: 5 mg Documented by: YING Docusate Sodium (Docusate Sodium 100 Mg Capsule) 100 mg PO DAILY PRN PRN Reason: Constipation Last Admin: 12/31/21 09:42 Dose: 100 mg Documented by: DAVIS Ceftriaxone Sodium 1 gm/ (Sodium Chloride) 50 mls @ 100 mls/hr IV 2200 [facility] Last Infusion: 01/02/22 00:38 Dose: 0 mls/hr Documented by: GERMAN Lactated Ringer's (Lr) 1,000 mls @ 80 mls/hr IVCONT .[id number] [facility] Morphine Sulfate (Morphine Sulfate 2 Mg/Ml Cartridge) 2 mg IVPUSH Q3H PRN; Protocol PRN Reason: Pain, Severe (Pain Scale 7-10) Last Admin: 01/02/22 05:29 Dose: 2 mg Documented by: GERMAN Ondansetron HCl (Ondansetron Hcl 4 Mg/2 Ml Vial) 4 mg IVPUSH Q8H PRN PRN Reason: Nausea and Vomiting Last Admin: 12/29/21 11:27 Dose: 4 mg Documented by: JOSE G Ondansetron HCl (Ondansetron Hcl 4 Mg/2 Ml Vial) 4 mg IVPUSH ONCE PRN PRN Reason: Nausea and Vomiting Oxycodone HCl (Oxycodone Hcl Immed Release 5 Mg Tablet) 5 mg PO Q4H PRN PRN Reason: Pain, Moderate (Pain Scale 4-6 Last Admin: 01/01/22 19:46 Dose: 5 mg Documented by: GERMAN Sodium Chloride (0.9 % Sodium Chloride Flush 3 Ml Syringe) 3 ml IVFLUSH [facility] Last Admin: 01/02/22 09:10 Dose: 3 ml Documented by: YING Labs CBC & Chem 7: 01/02/22 05:30 01/01/22 05:59 Labs: Laboratory Results - last 24 hr 01/02/22 01/02/22 05:30 05:30 MCV 94.8 MCH 31.0 MCHC 32.7 RDW 13.5 Plt Count 300 D MPV 10.7 Absolute Nucleated RBC 0.000 Nucleated RBC % (auto) 0.0 Total Bilirubin 0.8 Direct Bilirubin 0.3 AST 21 ALT 13 Alkaline Phosphatase 66 Total Protein 5.8 L Albumin 3.4 L Assessment and Plan (1) Choledocholithiasis: Status: Acute (2) UTI (urinary tract infection): Status: Acute Plan 81-year-old female with past medical history of asthma fizzy Rell hyperlipidemia presents to the hospital with complaints of abdominal pain in the right upper quadrant. 1. abdominal pain-? likely secondary to cholelithiasis/ choledocholithiasis -? no evidence of cholecystitis or cholangitis, patient afebrile, has no? elevated bilirubin or LFTs -? reports history of gallstones mri -? cbd stone possible ERCP in am followed by cholecystectomy as per surgery hold Plavix, in anticipation of laparoscopic julián Continue IV Dilaudid for pain control, antiemtic , gentle hydration, try clears ?General surgery following 2.? UTI -? positive UA -? will start on IV antibiotics -? follow cultures 3.? history of peripheral vascular disease hold Plavix for posible surgerical intervention. 4.? history of? emphysema - ? not in exacerbation -? continue home inhaler ?DVT prophylaxis:? SCDs in anticipation of possible surgical intervention. Quality Stroke Does the patient have a stroke diagnosis?: No VTE Prior VTE?: No VTE Risk Level:: Medical - moderate - high VTE Device Contraindication: N/A - Device Ordered VTE Drug Contraindication: Treatment Not Indicated
[2022-01-02] MEDS: Lactated Ringers 1,000 ML 80 ML IVCONT (11:27)
[2022-01-02] MEDS: Albuterol/Iprat 2.5/0.5MG 3 ML AMPUL.NEB INHALE (19:53)
[2022-01-02] MEDS: cefTRIAXone sodium 1 GM in 0.9 % Sodium Chloride 50 ML IV (21:02)
[2022-01-03] VITALS (7 sets, daily range): BP systolic 152–190; BP diastolic 72–81; PULSE 79–103; RESP 14–18; TEMP 36.4–37.4; O2SAT 92–99
[2022-01-03] MEDS: Lactated Ringers 1,000 ML 80 ML IVCONT ×3 (00:51→20:14)
[2022-01-03 06:19] LABS: Alanine Aminotransferase 14 U/L (0-31); Albumin Level 3.2 g/dL (3.5-5.0); Alkaline Phosphatase 61 U/L (39-117); Anion Gap 12 (12-20); Aspartate Amino Transferase 20 U/L (5-31); Bilirubin Direct 0.3 mg/dL (0.0-0.5); Bilirubin Total 0.8 mg/dL (0.0-1.0); Blood Urea Nitrogen 5 mg/dL (9-16); Calcium 8.4 mg/dL (8.4-10.2); Carbon Dioxide 27 mmol/L (22-29); Chloride 106 mmol/L (96-108); Creatinine Clr Calc Pharmacy 73.4; Estimated Glomerular Filt Rate > 60; Glucose Random 82 mg/dL (60-115); Potassium 3.5 mmol/L (3.3-5.1); Sodium 141 mmol/L (135-145); Total Protein 5.4 g/dL (6.5-8.0)
[2022-01-03] MEDS: amLODIPine Besylate 5 MG TABLET PO ×2 (07:54)
[2022-01-03] MEDS: Potassium Chloride Packet 20 MEQ PACKET PO (07:55)
--- NOTE | 2022-01-03 09:53 | HO.PM.IMPN ---
Subjective Subjective Date of Service: 01/03/22 Interval History: Choledocholithiasis, awaiting for lap julián. Review of Systems Says that hardly can tolerate clear liquid with still pain. Has nausea No vomiting or fever or chills or cough or phlegm ,. Physical Exam Vital Signs: Vital Signs: Last Vital Signs Temp 98.5 F 01/03/22 07:48 Pulse 103 H 01/03/22 07:52 Resp 18 01/03/22 07:52 BP 152/72 H 01/03/22 07:48 Pulse Ox 95 01/03/22 07:48 BMI result Body Mass Index 25.7 Appearance: Alert.? Oriented X3.? not in distress.? Eyes: Pupils equal, round and reactive to light.eyes anicteric cvs: rrr, [id number] , no murmur res: clear to auscultation ,no rhonchii or wheezing abd: no rebound or guarding ,still has ruq pain, bs present. ext pulses present , no cyanosis. neuro: axo3 , nonfocal. Objective Data Active Medications Acetaminophen (Acetaminophen 325 Mg Tablet) 650 mg PO Q6H PRN PRN Reason: Pain, Mild (Pain Scale 1-3) Last Admin: 12/29/21 23:27 Dose: 650 mg Documented by: TODD Acetaminophen (Acetaminophen 325 Mg Tablet) 650 mg PO ONCE PRN PRN Reason: Pain, Mild (Pain Scale 1-3) Albuterol/Ipratropium (Albuterol/Iprat 2.5/0.5mg 3 Ml Ampul.Neb) 3 ml INHALE RQ4H PRN PRN Reason: sob Last Admin: 01/02/22 19:53 Dose: 3 ml Documented by: PAULINA Amlodipine Besylate (Amlodipine Besylate 5 Mg Tablet) 5 mg PO DAILY [facility]; Protocol Last Admin: 01/03/22 07:54 Dose: 5 mg Documented by: CONY Docusate Sodium (Docusate Sodium 100 Mg Capsule) 100 mg PO DAILY PRN PRN Reason: Constipation Last Admin: 12/31/21 09:42 Dose: 100 mg Documented by: COLJUAN Ceftriaxone Sodium 1 gm/ (Sodium Chloride) 50 mls @ 100 mls/hr IV 2200 [facility] Last Infusion: 01/02/22 21:41 Dose: 0 mls/hr Documented by: CONY Lactated Ringer's (Lr) 1,000 mls @ 80 mls/hr IVCONT .[id number] [facility] Last Admin: 01/03/22 00:51 Dose: 80 mls/hr Documented by: ABBEY Morphine Sulfate (Morphine Sulfate 2 Mg/Ml Cartridge) 2 mg IVPUSH Q3H PRN; Protocol PRN Reason: Pain, Severe (Pain Scale 7-10) Last Admin: 01/02/22 20:54 Dose: 2 mg Documented by: CONY Ondansetron HCl (Ondansetron Hcl 4 Mg/2 Ml Vial) 4 mg IVPUSH Q8H PRN PRN Reason: Nausea and Vomiting Last Admin: 12/29/21 11:27 Dose: 4 mg Documented by: JOSE G Ondansetron HCl (Ondansetron Hcl 4 Mg/2 Ml Vial) 4 mg IVPUSH ONCE PRN PRN Reason: Nausea and Vomiting Oxycodone HCl (Oxycodone Hcl Immed Release 5 Mg Tablet) 5 mg PO Q4H PRN PRN Reason: Pain, Moderate (Pain Scale 4-6 Last Admin: 01/01/22 19:46 Dose: 5 mg Documented by: GERMAN Sodium Chloride (0.9 % Sodium Chloride Flush 3 Ml Syringe) 3 ml IVFLUSH QSHIFT [facility] Last Admin: 01/03/22 07:58 Dose: Not Given Documented by: CONY Non-Admin Reason: IV Running Tiotropium [place] (Tiotropium [place] 18 Mcg Cap.W.Dev) 1 puff INHALE RDAILY [facility] Last Admin: 01/03/22 07:55 Dose: 1 puff Documented by: JESSIE Labs CBC & Chem 7: 01/02/22 05:30 01/03/22 05:41 Labs: Laboratory Results - last 24 hr 01/03/22 05:41 Anion Gap 12 Estim Creat Clear Calc 73.4 Estimated GFR > 60 Random Glucose 82 Calcium 8.4 Total Bilirubin 0.8 Direct Bilirubin 0.3 AST 20 ALT 14 Alkaline Phosphatase 61 Total Protein 5.4 L Albumin 3.2 L Microbiology Microbiology Results: Microbiology 12/29/21 03:24 Blood Culture - Final Blood - Venous No growth after 5 days. 12/29/21 02:36 Blood Culture - Final Blood - Venous No growth after 5 days. Assessment and Plan (1) Choledocholithiasis: Status: Acute (2) UTI (urinary tract infection): Status: Acute Plan 81-year-old female with past medical history of asthma fizzy Rell hyperlipidemia presents to the hospital with complaints of abdominal pain in the right upper quadrant. 1. abdominal pain-? likely secondary to cholelithiasis/ choledocholithiasis -? no evidence of cholecystitis or cholangitis, patient afebrile, has no? elevated bilirubin or LFTs -? reports history of gallstones mri -? cbd stone possible ERCP in am followed by cholecystectomy as per surgery hold Plavix, in anticipation of laparoscopic julián possible tomorrow Continue IV Dilaudid for pain control, antiemtic , gentle hydration, clears liiquid diet ?General surgery following 2.? UTI -? positive UA -? will start on IV antibiotics -? follow cultures 3.? history of peripheral vascular disease hold Plavix for posible surgerical intervention. 4.? history of? emphysema - ? not in exacerbation -? continue home inhaler ?DVT prophylaxis:? SCDs in anticipation of possible surgical intervention. Quality Stroke Does the patient have a stroke diagnosis?: No VTE Prior VTE?: No VTE Risk Level:: Medical - moderate - high VTE Device Contraindication: N/A - Device Ordered VTE Drug Contraindication: Treatment Not Indicated
--- NOTE | 2022-01-03 13:31 | P.PNGS_ITS ---
Subjective Subjective Date of Service: 01/03/22 Interval history: pt doing ok Physical Exam Vital Signs: Vital Signs: Last Vital Signs Temp 97.5 F 01/03/22 11:43 Pulse 79 01/03/22 11:43 Resp 18 01/03/22 11:43 BP 190/80 H 01/03/22 11:43 Pulse Ox 95 01/03/22 11:43 BMI result Body Mass Index 25.7 GI: Other: little tender ruq area Objective Data Active Medications Acetaminophen (Acetaminophen 325 Mg Tablet) 650 mg PO Q6H PRN PRN Reason: Pain, Mild (Pain Scale 1-3) Last Admin: 12/29/21 23:27 Dose: 650 mg Documented by: TODD Acetaminophen (Acetaminophen 325 Mg Tablet) 650 mg PO ONCE PRN PRN Reason: Pain, Mild (Pain Scale 1-3) Albuterol/Ipratropium (Albuterol/Iprat 2.5/0.5mg 3 Ml Ampul.Neb) 3 ml INHALE RQ4H PRN PRN Reason: sob Last Admin: 01/02/22 19:53 Dose: 3 ml Documented by: PAULINA Amlodipine Besylate (Amlodipine Besylate 5 Mg Tablet) 5 mg PO DAILY [facility]; Protocol Last Admin: 01/03/22 07:54 Dose: 5 mg Documented by: CONY Docusate Sodium (Docusate Sodium 100 Mg Capsule) 100 mg PO DAILY PRN PRN Reason: Constipation Last Admin: 12/31/21 09:42 Dose: 100 mg Documented by: COLJUAN Ceftriaxone Sodium 1 gm/ (Sodium Chloride) 50 mls @ 100 mls/hr IV 2200 [facility] Last Infusion: 01/02/22 21:41 Dose: 0 mls/hr Documented by: CONY Lactated Ringer's (Lr) 1,000 mls @ 80 mls/hr IVCONT .[id number] [facility] Last Admin: 01/03/22 13:25 Dose: 80 mls/hr Documented by: CONY Morphine Sulfate (Morphine Sulfate 2 Mg/Ml Cartridge) 2 mg IVPUSH Q3H PRN; Protocol PRN Reason: Pain, Severe (Pain Scale 7-10) Last Admin: 01/02/22 20:54 Dose: 2 mg Documented by: CONY Ondansetron HCl (Ondansetron Hcl 4 Mg/2 Ml Vial) 4 mg IVPUSH Q8H PRN PRN Reason: Nausea and Vomiting Last Admin: 12/29/21 11:27 Dose: 4 mg Documented by: JOSE G Ondansetron HCl (Ondansetron Hcl 4 Mg/2 Ml Vial) 4 mg IVPUSH ONCE PRN PRN Reason: Nausea and Vomiting Oxycodone HCl (Oxycodone Hcl Immed Release 5 Mg Tablet) 5 mg PO Q4H PRN PRN Reason: Pain, Moderate (Pain Scale 4-6 Last Admin: 01/01/22 19:46 Dose: 5 mg Documented by: GERMAN Sodium Chloride (0.9 % Sodium Chloride Flush 3 Ml [facility]ringe) [facility] Last Admin: 01/03/22 07:58 Dose: Not Given Documented by: CONY Non-Admin Reason: IV Running Tiotropium [place] (Tiotropium [place] 18 Mcg Cap.W.Dev) 1 puff INHALE RDAILY [facility] Last Admin: 01/03/22 07:55 Dose: 1 puff Documented by: JESSIE Labs CBC & Chem 7: 01/02/22 05:30 01/03/22 05:41 Labs: Laboratory Results - last 24 hr 01/03/22 05:41 Anion Gap 12 Estim Creat Clear Calc 73.4 Estimated GFR > 60 Random Glucose 82 Calcium 8.4 Total Bilirubin 0.8 Direct Bilirubin 0.3 AST 20 ALT 14 Alkaline Phosphatase 61 Total Protein 5.4 L Albumin 3.2 L Microbiology Microbiology Results: Microbiology 12/29/21 03:24 Blood Culture - Final Blood - Venous No growth after 5 days. 12/29/21 02:36 Blood Culture - Final Blood - Venous No growth after 5 days. Procedures Date of Service Date of Service: 01/03/22 Progress Note: A&P Assessment and plan (1) Choledocholithiasis: Status: Acute Assessment and Plan: pt for lap julián tomorrow - doing well npo after midnight (2) Right upper quadrant pain: Status: Acute Fall Risk Details Current Medications: Current Medications Acetaminophen (Acetaminophen 325 Mg Tablet) 650 mg PO Q6H PRN PRN Reason: Pain, Mild (Pain Scale 1-3) Last Admin: 12/29/21 23:27 Dose: 650 mg Documented by: Acetaminophen (Acetaminophen 325 Mg Tablet) 650 mg PO ONCE PRN PRN Reason: Pain, Mild (Pain Scale 1-3) Albuterol/Ipratropium (Albuterol/Iprat 2.5/0.5mg 3 Ml Ampul.Neb) 3 ml INHALE RQ4H PRN PRN Reason: sob Last Admin: 01/02/22 19:53 Dose: 3 ml Documented by: Amlodipine Besylate (Amlodipine Besylate 5 Mg Tablet) 5 mg PO DAILY [facility]; Protocol Last Admin: 01/03/22 07:54 Dose: 5 mg Documented by: Docusate Sodium (Docusate Sodium 100 Mg Capsule) 100 mg PO DAILY PRN PRN Reason: Constipation Last Admin: 12/31/21 09:42 Dose: 100 mg Documented by: Ceftriaxone Sodium 1 gm/ (Sodium Chloride) 50 mls @ 100 mls/hr IV 2200 [facility] Last Infusion: 01/02/22 21:41 Dose: Infused Documented by: Lactated Ringer's (Lr) 1,000 mls @ 80 mls/hr IVCONT .[id number] [facility] Last Admin: 01/03/22 13:25 Dose: 80 mls/hr Documented by: Morphine Sulfate (Morphine Sulfate 2 Mg/Ml Cartridge) 2 mg IVPUSH Q3H PRN; Protocol PRN Reason: Pain, Severe (Pain Scale 7-10) Last Admin: 01/02/22 20:54 Dose: 2 mg Documented by: Ondansetron HCl (Ondansetron Hcl 4 Mg/2 Ml Vial) 4 mg IVPUSH Q8H PRN PRN Reason: Nausea and Vomiting Last Admin: 12/29/21 11:27 Dose: 4 mg Documented by: Ondansetron HCl (Ondansetron Hcl 4 Mg/2 Ml Vial) 4 mg IVPUSH ONCE PRN PRN Reason: Nausea and Vomiting Oxycodone HCl (Oxycodone Hcl Immed Release 5 Mg Tablet) 5 mg PO Q4H PRN PRN Reason: Pain, Moderate (Pain Scale 4-6 Last Admin: 01/01/22 19:46 Dose: 5 mg Documented by: Sodium Chloride (0.9 % Sodium Chloride Flush 3 Ml Syringe) 3 ml IVFLUSH QSHIFT [facility] Last Admin: 01/03/22 07:58 Dose: Not Given Documented by: Tiotropium [place] (Tiotropium [place] 18 Mcg Cap.W.Dev) 1 puff INHALE [facility] Last Admin: 01/03/22 07:55 Dose: 1 puff Documented by: Time Spent With Patient Time: Total time spent is greater than 50% in coordination of care (as documented) at patient's floor/unit and/or counseling patient: Time with patient: less than 15 minutes Quality Stroke Does the patient have a stroke diagnosis?: No VTE Prior VTE?: No VTE Risk Level:: Medical - moderate - high VTE Device Contraindication: N/A - Device Ordered VTE Drug Contraindication: Treatment Not Indicated
--- NOTE | 2022-01-03 15:28 | HO.POSTANES ---
Post Anesthesia Evaluation Post Anesthesia Evaluation Vital Signs: Vital Signs Temp Pulse Resp BP Pulse Ox 01/03/22 11:43 97.5 F 79 18 190/80 H 95 01/03/22 07:52 103 H 18 01/03/22 07:48 98.5 F 103 H 18 152/72 H 95 01/03/22 03:49 98.2 F 86 14 186/78 H 92 Anesthesia: General Mental Status: Awake Pain Control: Satisfactory Nausea/Vomiting: None Hydration: Adequate Anesthesia-Related Issues: No Anes. Related Issues
[2022-01-03] MEDS: cefTRIAXone sodium 1 GM in 0.9 % Sodium Chloride 50 ML IV (20:15)
[2022-01-04] VITALS (20 sets, daily range): BP systolic 149–198; BP diastolic 59–82; PULSE 73–107; RESP 14–20; TEMP 36–36.9; O2SAT 95–99; BMI 25.4
[2022-01-04] MEDS: Morphine Sulfate 2 MG/ML CARTRIDGE IVPUSH ×2 (00:28→18:24)
[2022-01-04] MEDS: Lactated Ringers 1,000 ML 80 ML IVCONT (09:46)
--- NOTE | 2022-01-04 11:58 | P.PNIM_ITS ---
Subjective Subjective Date of Service: 01/04/22 Interval History: Abdominal pain Review of Systems Patient still has right upper quadrant pain, still nauseated. Denies any chest pain or shortness of breath or fever or chills Physical Exam Vital Signs: Vital Signs: Last Vital Signs Temp 96.8 F 01/04/22 11:20 Pulse 77 01/04/22 11:20 Resp 18 01/04/22 11:20 BP 152/70 H 01/04/22 11:20 Pulse Ox 95 01/04/22 11:20 BMI result Body Mass Index 25.7 Appearance: Alert.? Oriented X3.? not in distress.? Eyes: Pupils equal, round and reactive to light.? Sclera nonicteric.? ENT: Pharynx normal.? Moist mucous membranes. cvs: rrr, [id number] , no murmur res: clear to auscultation ,no rhonchii or wheezing abd: no rebound or guarding ,ruq pain, bs present. ext pulses present , no cyanosis ,Gait well balanced well coordinated. neuro: axo3 , nonfocal. Objective Data Active Medications Acetaminophen (Acetaminophen 325 Mg Tablet) 650 mg PO Q6H PRN PRN Reason: Pain, Mild (Pain Scale 1-3) Last Admin: 12/29/21 23:27 Dose: 650 mg Documented by: TODD Acetaminophen (Acetaminophen 325 Mg Tablet) 650 mg PO ONCE PRN PRN Reason: Pain, Mild (Pain Scale 1-3) Albuterol/Ipratropium (Albuterol/Iprat 2.5/0.5mg 3 Ml Ampul.Neb) 3 ml INHALE RQ4H PRN PRN Reason: sob Last Admin: 01/02/22 19:53 Dose: 3 ml Documented by: PAULINA Amlodipine Besylate (Amlodipine Besylate 5 Mg Tablet) 5 mg PO DAILY [facility]; Protocol Last Admin: 01/03/22 07:54 Dose: 5 mg Documented by: CONY Docusate Sodium (Docusate Sodium 100 Mg Capsule) 100 mg PO DAILY PRN PRN Reason: Constipation Last Admin: 12/31/21 09:42 Dose: 100 mg Documented by: COLJUAN Ceftriaxone Sodium 1 gm/ (Sodium Chloride) 50 mls @ 100 mls/hr IV 2200 [facility] Last Infusion: 01/03/22 20:49 Dose: 0 mls/hr Documented by: CONY Lactated Ringer's (Lr) 1,000 mls @ 80 mls/hr IVCONT .[id number] [facility] Last Admin: 01/04/22 11:35 Dose: Not Given Documented by: EL Non-Admin Reason: IV Running Ondansetron HCl (Ondansetron Hcl 4 Mg/2 Ml Vial) 4 mg IVPUSH Q8H PRN PRN Reason: Nausea and Vomiting Last Admin: 12/29/21 11:27 Dose: 4 mg Documented by: JOSE G Ondansetron HCl (Ondansetron Hcl 4 Mg/2 Ml Vial) 4 mg IVPUSH ONCE PRN PRN Reason: Nausea and Vomiting Sodium Chloride (0.9 % Sodium Chloride Flush 3 Ml Syringe) 3 ml IVFLUSH QSHIFT [facility] Last Admin: 01/04/22 08:33 Dose: Not Given Documented by: EL Non-Admin Reason: IV Running Tiotropium [place] (Tiotropium [place] 18 Mcg Cap.W.Dev) 1 puff INHALE RDAILY [facility] Last Admin: 01/04/22 07:47 Dose: 1 puff Documented by: ADILENE Labs CBC & Chem 7: 01/02/22 05:30 01/03/22 05:41 Assessment and Plan (1) Choledocholithiasis: Status: Acute (2) UTI (urinary tract infection): Status: Acute Plan 81-year-old female with past medical history of asthma fizzy Rell hyperlipidemia presents to the hospital with complaints of abdominal pain in the right upper quadrant. 1. abdominal pain-? likely secondary to cholelithiasis/ choledocholithiasis -? no evidence of cholecystitis or cholangitis, patient afebrile, has no? elevated bilirubin or LFTs -? reports history of gallstones mri -? cbd stone possible ERCP in am followed by cholecystectomy as per surgery hold Plavix, in anticipation of laparoscopic julián possible today Continue IV Dilaudid for pain control, antiemtic , gentle hydration, clears liiquid diet ?General surgery following 2.? UTI -? positive UA -? will start on IV antibiotics -? follow cultures 3.? history of peripheral vascular disease hold Plavix for posible surgerical intervention. 4.? history of? emphysema - ? not in exacerbation -? continue home inhaler 5. htn : uncontrolled started on amlodipine yesterday , will adjust amlodipine to 10 mg daily for the morning overnight added prn iv hydralazine ?DVT prophylaxis:? SCDs in anticipation of possible surgical intervention. Quality Stroke Does the patient have a stroke diagnosis?: No VTE Prior VTE?: No VTE Risk Level:: Medical - moderate - high VTE Device Contraindication: N/A - Device Ordered VTE Drug Contraindication: Treatment Not Indicated
[2022-01-04] MEDS: Lactated Ringers 1,000 ML 100 ML IVCONT (13:00)
--- NOTE | 2022-01-04 13:49 | MHC.SHP ---
Pre-Procedural Eval Section A Date of Service: 01/04/22 The patient is an INPATIENT: No Section B Chief Complaint: abd pain Allergies: Allergies Allergy/AdvReac Type Severity Reaction Status Date / Time lactose [LACTOSE] Allergy Intermediate ABDOMINAL Verified 01/01/22 09:20 PAIN codeine [CODEINE] Allergy Unknown HIVES, Verified 01/01/22 09:20 HEADACHES, hives lactose intolerant Allergy Unknown Abdominal Uncoded 12/29/21 15:59 Pain Plan Diagnosis/Plan: Unchanged I have reviewed the history and physical and performed a pertinent physical examination on my patient. No changes have occurred unless specified.
--- NOTE | 2022-01-04 13:52 | HO.ANESPROP2 ---
HPI - Anesthesia Eval Consult details Narrative: 81 yo female patient for laparoscopic cholecystectomy, possible open PMFSH Active Problems Active Problems: All Active Problems (Updated 12/29/21 @ 10:53 by Maggie Turpin PA-C) Right upper quadrant pain (Acute) Choledocholithiasis (Acute) Common bile duct dilatation (Acute) UTI (urinary tract infection) (Acute) Gallstones (Acute) Past Medical History Medical History Emphysema of lung Endometrial cancer Hyperlipidemia PVD (peripheral vascular disease) Functional capacity: independent ambulation Family History Family History Other No family history of coronary artery disease Family history of problems with anesthesia: No Surgical History Surgical History (Updated 01/04/22 @ 13:54 by Jessica Dinh MD) H/O: hysterectomy History of hip replacement History of knee replacement Hx of discectomy S/P ERCP History of Problems with Anesthesia: No Social History Social History Household Members: None Housing: Apartment Do you presently have visiting nurse or other home services: No Alcohol intake: current Alcohol intake frequency: holidays/special occasions only Patient Tobacco Use Status: Former Tobacco user Quit Date: 20 years ago service: No Current occupational status: retired Meds Allergies Allergy/AdvReac Type Severity Reaction Status Date / Time lactose [LACTOSE] Allergy Intermediate ABDOMINAL Verified 01/01/22 09:20 PAIN codeine [CODEINE] Allergy Unknown HIVES, Verified 01/01/22 09:20 HEADACHES, hives lactose intolerant Allergy Unknown Abdominal Uncoded 12/29/21 15:59 Pain Active Medications: Current Medications Acetaminophen (Acetaminophen 325 Mg Tablet) 650 mg PO Q6H PRN PRN Reason: Pain, Mild (Pain Scale 1-3) Last Admin: 12/29/21 23:27 Dose: 650 mg Documented by: Acetaminophen (Acetaminophen 325 Mg Tablet) 650 mg PO ONCE PRN PRN Reason: Pain, Mild (Pain Scale 1-3) Albuterol/Ipratropium (Albuterol/Iprat 2.5/0.5mg 3 Ml Ampul.Neb) 3 ml INHALE RQ4H PRN PRN Reason: sob Last Admin: 01/02/22 19:53 Dose: 3 ml Documented by: Amlodipine Besylate (Amlodipine Besylate 5 Mg Tablet) 5 mg PO DAILY [facility]; Protocol Last Admin: 01/03/22 07:54 Dose: 5 mg Documented by: Docusate Sodium (Docusate Sodium 100 Mg Capsule) 100 mg PO DAILY PRN PRN Reason: Constipation Last Admin: 12/31/21 09:42 Dose: 100 mg Documented by: Ceftriaxone Sodium 1 gm/ (Sodium Chloride) 50 mls @ 100 mls/hr IV 2200 [facility] Last Infusion: 01/03/22 20:49 Dose: Infused Documented by: Lactated Ringer's (Lr) 1,000 mls @ 80 mls/hr IVCONT .[id number] [facility] Last Admin: 01/04/22 11:35 Dose: Not Given Documented by: Lactated Ringer's (Lr) 1,000 mls @ 100 mls/hr IVCONT .Q10H [facility] Morphine Sulfate (Morphine Sulfate 2 Mg/Ml Cartridge) 2 mg IVPUSH Q4H PRN; Protocol PRN Reason: Pain, Moderate (Pain Scale 4-6 Ondansetron HCl (Ondansetron Hcl 4 Mg/2 Ml Vial) 4 mg IVPUSH Q8H PRN PRN Reason: Nausea and Vomiting Last Admin: 12/29/21 11:27 Dose: 4 mg Documented by: Ondansetron HCl (Ondansetron Hcl 4 Mg/2 Ml Vial) 4 mg IVPUSH ONCE PRN PRN Reason: Nausea and Vomiting Sodium Chloride (0.9 % Sodium Chloride Flush 3 Ml Syringe) 3 ml IVFLUSH QSHIFT [facility] Last Admin: 01/04/22 08:33 Dose: Not Given Documented by: Tiotropium [place] (Tiotropium [place] 18 Mcg Cap.W.Dev) 1 puff INHALE RDAILY [facility] Last Admin: 01/04/22 07:47 Dose: 1 puff Documented by: Home Medications Medication Instructions Recorded Confirmed Last Taken Type clopidogrel 75 mg tablet 1 tab PO DAILY 12/29/21 12/29/21 Unknown History rosuvastatin 20 mg tablet 1 tab PO DAILY 12/29/21 12/29/21 Unknown History umeclidinium 62.5 mcg/actuation 1 puff PO DAILY 12/29/21 12/29/21 Unknown History blister powder for inhalation (Incruse Ellipta) Exam Exam Date and Time: January 04, 2022 1352 Height,Weight and Vital Signs: Height 5 ft 4 in Weight 67.132 kg Last Vital Signs Temp 98.5 F 01/04/22 13:28 Pulse 74 01/04/22 13:28 Resp 18 01/04/22 13:28 BP 171/75 H 01/04/22 13:28 Pulse Ox 98 01/04/22 13:28 Pertinent Lab Results Pertinent Lab Results: Laboratory Tests 12/28/21 12/28/21 12/28/21 19:44 19:44 19:44 WBC 12.6 H RBC 4.35 Hgb 13.6 Hct 41.2 MCV 94.7 MCH 31.3 MCHC 33.0 RDW 13.7 Plt Count 727 H MPV 10.0 Immature Gran % (Auto) 0.4 Neut % (Auto) 76.0 H Lymph % (Auto) 12.5 L [place] % (Auto) 8.8 Eos % (Auto) 2.1 Baso % (Auto) 0.2 Lymph # (Auto) 1.6 [place] # (Auto) 1.1 Eos # (Auto) 0.3 Baso # (Auto) 0.0 Abs Immat Gran (auto) 0.05 H Absolute Neuts (auto) 9.6 H Absolute Nucleated RBC 0.000 Nucleated RBC % (auto) 0.0 PT INR Sodium 139 Potassium 4.6 Chloride 108 Carbon Dioxide 24 Anion Gap 12 BUN 15 Creatinine 0.69 Estim Creat Clear Calc 58.5 Estimated GFR > 60 Random Glucose 95 Lactic Acid Calcium 9.6 Total Bilirubin 0.6 Direct Bilirubin AST 24 ALT 17 Alkaline Phosphatase 77 Troponin I High Sens Total Protein 7.0 Albumin 4.2 Lipase 14 Urine Color YELLOW Urine Appearance CLEAR Urine pH 6.0 Ur Specific [place] 1.020 Urine Protein NEG Urine Glucose (UA) NEG Urine Ketones NEG Urine Blood NEG Urine Nitrite NEG Ur Leukocyte Esterase TRACE H Urine RBC 0 Urine WBC 5-9 H Ur Squamous Epith Cells 1+ Urine Bacteria NONE COVID-19 ([facility]) COVID-19 Clin Com 12/28/21 12/29/21 12/29/21 19:44 02:36 02:49 WBC RBC Hgb Hct MCV MCH MCHC RDW Plt Count MPV Immature Gran % (Auto) Neut % (Auto) Lymph % (Auto) [place] % (Auto) Eos % (Auto) Baso % (Auto) Lymph # (Auto) [place] # (Auto) Eos # (Auto) Baso # (Auto) Abs Immat Gran (auto) Absolute Neuts (auto) Absolute Nucleated RBC Nucleated RBC % (auto) PT INR Sodium Potassium Chloride Carbon Dioxide Anion Gap BUN Creatinine Estim Creat Clear Calc Estimated GFR Random Glucose Lactic Acid 0.8 Calcium Total Bilirubin Direct Bilirubin AST ALT Alkaline Phosphatase Troponin I High Sens 13.7 Total Protein Albumin Lipase Urine Color Urine Appearance Urine pH Ur Specific [place] Urine Protein Urine Glucose (UA) Urine Ketones Urine Blood Urine Nitrite Ur Leukocyte Esterase Urine RBC Urine WBC Ur Squamous Epith Cells Urine Bacteria COVID-19 ([facility]) Negative COVID-19 Clin Com See Note 12/29/21 12/29/21 12/30/21 06:05 06:05 05:31 WBC 12.3 H RBC 4.22 Hgb 13.2 Hct 40.4 MCV 95.7 MCH 31.3 MCHC 32.7 RDW 13.7 Plt Count 616 H MPV 10.2 Immature Gran % (Auto) 0.5 H Neut % (Auto) 78.5 H Lymph % (Auto) 9.5 L [place] % (Auto) 8.9 Eos % (Auto) 2.4 Baso % (Auto) 0.2 Lymph # (Auto) 1.2 [place] # (Auto) 1.1 Eos # (Auto) 0.3 Baso # (Auto) 0.0 Abs Immat Gran (auto) 0.06 H Absolute Neuts (auto) 9.6 H Absolute Nucleated RBC 0.000 Nucleated RBC % (auto) 0.0 PT INR Sodium 141 138 Potassium 4.4 5.7 H D Chloride 106 104 Carbon Dioxide 28 23 Anion Gap 11 L 17 BUN 13 15 Creatinine 0.66 0.72 Estim Creat Clear Calc 61.2 56.1 Estimated GFR > 60 > 60 Random Glucose 80 64 Lactic Acid Calcium 9.5 9.3 Total Bilirubin 0.6 Direct Bilirubin 0.3 AST 22 ALT 16 Alkaline Phosphatase 75 Troponin I High Sens Total Protein 6.4 L Albumin 3.9 Lipase Urine Color Urine Appearance Urine pH Ur Specific [place] Urine Protein Urine Glucose (UA) Urine Ketones Urine Blood Urine Nitrite Ur Leukocyte Esterase Urine RBC Urine WBC Ur Squamous Epith Cells Urine Bacteria COVID-19 ([facility]) COVID-19 Clin Com 0212/31/21 01/01/22 05:35 08:13 05:59 WBC RBC Hgb Hct MCV MCH MCHC RDW Plt Count MPV Immature Gran % (Auto) Neut % (Auto) Lymph % (Auto) [place] % (Auto) Eos % (Auto) Baso % (Auto) Lymph # (Auto) [place] # (Auto) Eos # (Auto) Baso # (Auto) Abs Immat Gran (auto) Absolute Neuts (auto) Absolute Nucleated RBC Nucleated RBC % (auto) PT 13.6 H INR 1.2 H Sodium 137 141 Potassium 4.2 D 4.2 Chloride 104 108 Carbon Dioxide 24 23 Anion Gap 13 14 BUN 13 8 L Creatinine 0.63 0.57 Estim Creat Clear Calc 64.1 70.8 Estimated GFR > 60 > 60 Random Glucose 101 76 Lactic Acid Calcium 8.5 D 8.6 Total Bilirubin Direct Bilirubin AST ALT Alkaline Phosphatase Troponin I High Sens Total Protein Albumin Lipase Urine Color Urine Appearance Urine pH Ur Specific [place] Urine Protein Urine Glucose (UA) Urine Ketones Urine Blood Urine Nitrite Ur Leukocyte Esterase Urine RBC Urine WBC Ur Squamous Epith Cells Urine Bacteria COVID-19 ([facility]) COVID-19 Clin Com 01/01/22 01/02/22 01/02/22 06:14 05:30 05:30 WBC 13.5 H RBC 4.00 L Hgb 12.4 Hct 37.9 MCV 94.8 MCH 31.0 MCHC 32.7 RDW 13.5 Plt Count 300 D MPV 10.7 Immature Gran % (Auto) Neut % (Auto) Lymph % (Auto) [place] % (Auto) Eos % (Auto) Baso % (Auto) Lymph # (Auto) [place] # (Auto) Eos # (Auto) Baso # (Auto) Abs Immat Gran (auto) Absolute Neuts (auto) Absolute Nucleated RBC 0.000 Nucleated RBC % (auto) 0.0 PT INR Sodium Potassium Chloride Carbon Dioxide Anion Gap BUN Creatinine Estim Creat Clear Calc Estimated GFR Random Glucose Lactic Acid Calcium Total Bilirubin 1.0 0.8 Direct Bilirubin 0.3 0.3 AST 22 21 ALT 13 13 Alkaline Phosphatase 69 66 Troponin I High Sens Total Protein 5.9 L 5.8 L Albumin 3.5 3.4 L Lipase Urine Color Urine Appearance Urine pH Ur Specific [place] Urine Protein Urine Glucose (UA) Urine Ketones Urine Blood Urine Nitrite Ur Leukocyte Esterase Urine RBC Urine WBC Ur Squamous Epith Cells Urine Bacteria COVID-19 ([facility]) COVID-19 Clin Com 01/03/22 05:41 WBC RBC Hgb Hct MCV MCH MCHC RDW Plt Count MPV Immature Gran % (Auto) Neut % (Auto) Lymph % (Auto) [place] % (Auto) Eos % (Auto) Baso % (Auto) Lymph # (Auto) [place] # (Auto) Eos # (Auto) Baso # (Auto) Abs Immat Gran (auto) Absolute Neuts (auto) Absolute Nucleated RBC Nucleated RBC % (auto) PT INR Sodium 141 Potassium 3.5 Chloride 106 Carbon Dioxide 27 Anion Gap 12 BUN 5 L Creatinine 0.55 Estim Creat Clear Calc 73.4 Estimated GFR > 60 Random Glucose 82 Lactic Acid Calcium 8.4 Total Bilirubin 0.8 Direct Bilirubin 0.3 AST 20 ALT 14 Alkaline Phosphatase 61 Troponin I High Sens Total Protein 5.4 L Albumin 3.2 L Lipase Urine Color Urine Appearance Urine pH Ur Specific [place] Urine Protein Urine Glucose (UA) Urine Ketones Urine Blood Urine Nitrite Ur Leukocyte Esterase Urine RBC Urine WBC Ur Squamous Epith Cells Urine Bacteria COVID-19 ([facility]) COVID-19 Clin Com Airway Mallampati Class: II TM Dist: >3cm Neck ROM: Full Denture: Upper and Lower Heart: RRR Lungs: CTAB Assessment and Plan Assessment Anesthesia Assessment: Anesthesia Plan Discussed and Chart Reviewed Final Anesthetic Review Family History of Problems with Anesthesia: No History of Problems with Anesthesia: No NPO: Yes ASA Class: III Final Preanesthetic Review: No Changes in Pt Med Stat, Meds/Allgs Chart Reviewed, Consent Obtained/Reviewed and Anes Risks/Benef Reviewed Patient Risk: Intermediate Procedure Risk: Intermediate Assessment/Block/Sedation in SS: Assess/Block/Sedation- Anesthetic Plan Anesthetic Plan: GA Disposition: Standard PACU and Inp. Admit - Standard Bed
[2022-01-04] MEDS: cefoTEtan disodium 2 GM in 0.9 % Sodium Chloride 50 ML IV (14:22)
--- NOTE | 2022-01-04 15:13 | P.OP_ITS ---
Operative Note Operative Note Date of Service: 01/04/22 Narrative: Preoperative diagnosis: Acute cholecystitis, cholelithiasis, choledocholithiasis Postoperative diagnosis: Same Procedure: Laparoscopic cholecystectomy Surgeon: Chavo Luque MD Life Skills Worker: GARLAND Liu Anesthesia: General endotracheal Indications for procedure: 78-year-old female patient complaining of abdominal pain in the right upper quadrant found to have gallstones with gallbladder as well as a dilated common bile duct. Patient was found to have stones noted on common bile duct by MRCP. Subsequent years to be was negative for any common bile duct stone. Patient presents today for laparoscopic cholecystectomy. Operative findings: Acutely inflamed gallbladder with gallstones within the gallbladder. Small common bile duct. Specimen: gallbladder Estimated blood loss: 2 mL Complications: none Procedure details: Patient was brought to the OR and placed in a supine position. After administering general anesthesia the patient's abdomen was prepped with ChloraPrep and draped in a sterile fashion. Local anesthesia consisting of 0.5% Sensorcaine without epinephrine was infiltrated in a periumbilical region. A 5 mm incision was made above the umbilicus in a transverse fashion. The Veress needle was then inserted while elevating abdominal cavity with towel clips. After positive drop test the abdomen was insufflated to a pressure of 15 mm of mercury. The Veress needle was then removed and a 5 mm trocar inserted. The camera was inserted in the abdomen explored. A 12 mm trocar was then placed in the epigastrium and two 5 mm trocars placed in the right upper quadrant. The patient was placed in reverse Trendelenburg positioning and rotated to the left. The gallbladder was grasped with the fundus and retracted cephalad.. The infundibulum was then grasped and retracted away from the liver bed. The Dolphin dissected was then used to dissect the peritoneum off the infundibulum to reveal the junction with the cystic duct. Cystic artery was noted slightly medial and posterior to the cystic duct. After obtaining a critical view the cystic duct was doubly clipped and divided. The cystic artery was then doubly clipped and divided. The gallbladder was then dissected off the liver bed using electrocautery with an L hook. Hemostasis was assured all times using the electrocautery. When the gallbladder is completely dissected off the liver bed was placed in an Endo- Catch bag and brought out through the epigastric incision. The gallbladder was sent to pathology for further examination. The abdomen was then re-examined. The liver bed was irrigated and suctioned dry. No bleeding or bile leak could be identified. CO2 was then evacuated and all trocars removed. Fascia was closed at the epigastric incision using a [id number] 0 Polysorb suture. Skin was closed in all incisions using a subcuticular 4 0 Polysorb suture. Sterile dressings consisting of Steri-Strips, 2 x 2 gauze, and Tegaderm were then applied. The patient tolerated the procedure well. Sponge instrument and needle counts reported as correct. The patient was transferred to PACU in stable condition.
[2022-01-04] MEDS: fentaNYL citrate/PF 100 MCG/2 ML VIAL 25 MCG IVPUSH ×4 (15:35→16:15)
[2022-01-04] MEDS: fentaNYL citrate/PF 100 MCG/2 ML VIAL 50 MCG IVPUSH (15:48)
--- NOTE | 2022-01-04 16:36 | MHC.CM.PN ---
EMR REVIEWED, PT HAD VALENTIN EDWARDS TODAY, PT HAS NOT RETURNED TO UNIT AT TIME OF THIS NOTE, ANTIC PT WILL D/C TOMORROW 01/05/22 HOME NO SERVICES W/FAMILY FOR TRANSPORT.
[2022-01-04] MEDS: cefTRIAXone sodium 1 GM in 0.9 % Sodium Chloride 50 ML IV (21:14)
[2022-01-04] MEDS: oxyCODONE HCl Immed Release 5 MG TABLET PO (21:23)
[2022-01-04] MEDS: Acetaminophen 325 MG TABLET 650 MG PO (21:23)
[2022-01-05] MEDS: oxyCODONE HCl Immed Release 5 MG TABLET PO (02:09)
[2022-01-05] MEDS: Lactated Ringers 1,000 ML 80 ML IVCONT (02:10)
[2022-01-05] MEDS: Acetaminophen 325 MG TABLET 650 MG PO ×2 (03:28→11:56)
[2022-01-05 03:54] VITALS: BP 135/75; PULSE 73; RESP 17; TEMP 36.4; O2SAT 94
[2022-01-05 07:30] VITALS: PULSE 78; RESP 18; O2SAT 95
--- NOTE | 2022-01-05 07:32 | P.PNGS_ITS ---
Subjective Subjective Date of Service: 01/05/22 Interval history: Patient feels well this morning, has some mild pain in the right upper quadrant otherwise minimal discomfort. Physical Exam Vital Signs: Vital Signs: Last Vital Signs Temp 97.5 F 01/05/22 03:54 Pulse 73 01/05/22 03:54 Resp 17 01/05/22 03:54 BP 135/75 01/05/22 03:54 Pulse Ox 94 01/05/22 03:54 BMI result Body Mass Index 25.4 Const: General: cooperative and comfortable Nutritional Appearance: well n ourished Orientation/consciousness: patient oriented x3 Limitations: no limitations Eyes: Sclerae: sclerae normal Resp: Other: Breathing comfortably on room air, lungs clear GI: Other: Soft, nondistended, incisions clean, dry, and intact. Bowel sounds present. Neuro: General: patient oriented x3 Extrem: Other: No edema Objective Data Active Medications Acetaminophen (Acetaminophen 325 Mg Tablet) 650 mg PO Q6H PRN PRN Reason: Pain, Mild (Pain Scale 1-3) Last Admin: 01/05/22 03:28 Dose: 650 mg Documented by: JUAN DIEGO Albuterol/Ipratropium (Albuterol/Iprat 2.5/0.5mg 3 Ml Ampul.Neb) 3 ml INHALE RQ4H PRN PRN Reason: sob Last Admin: 01/02/22 19:53 Dose: 3 ml Documented by: PAULINA Amlodipine Besylate (Amlodipine Besylate 2.5 Mg Tablet) 7.5 mg PO DAILY [facility]; Protocol Docusate Sodium (Docusate Sodium 100 Mg Capsule) 100 mg PO DAILY PRN PRN Reason: Constipation Last Admin: 12/31/21 09:42 Dose: 100 mg Documented by: DAVIS Lactated Ringer's (Lr) 1,000 mls @ 80 mls/hr IVCONT .[id number] [facility] Last Admin: 01/05/22 02:10 Dose: 80 mls/hr Documented by: JUAN DIEGO Morphine Sulfate (Morphine Sulfate 2 Mg/Ml Cartridge) 2 mg IVPUSH Q4H PRN; Protocol PRN Reason: Pain, Moderate (Pain Scale 4-6 Last Admin: 01/04/22 18:24 Dose: 2 mg Documented by: GENI Ondansetron HCl (Ondansetron Hcl 4 Mg/2 Ml Vial) 4 mg IVPUSH Q8H PRN PRN Reason: Nausea and Vomiting Last Admin: 12/29/21 11:27 Dose: 4 mg Documented by: JOSE G Oxycodone HCl (Oxycodone Hcl Immed Release 5 Mg Tablet) 5 mg PO Q4H PRN PRN Reason: Pain, Severe (Pain Scale 7-10) Last Admin: 01/05/22 02:09 Dose: 5 mg Documented by: JUAN DIEGO Sodium Chloride (0.9 % Sodium Chloride Flush 3 Ml Syringe) 3 ml IVFLUSH QSHIFT [facility] Last Admin: 01/05/22 07:12 Dose: Not Given Documented by: NANCY Non-Admin Reason: IV Running Tiotropium [place] (Tiotropium [place] 18 Mcg Cap.W.Dev) 1 puff INHALE RDAILY [facility] Last Admin: 01/05/22 07:30 Dose: 1 puff Documented by: OPAL Labs CBC & Chem 7: 01/02/22 05:30 01/03/22 05:41 Procedures Date of Service Date of Service: 01/05/22 Progress Note: A&P Assessment and plan (1) Choledocholithiasis: Status: Acute (2) Gallstones: Status: Acute (3) Acute cholecystitis: Status: Acute Plan Pod 1 status post laparoscopic cholecystectomy. Patient found to have acute cholecystitis, cholelithiasis. She tolerated the procedure well and her wounds are clean and intact. She is tolerating regular diet without nausea or v omiting. She is clear for discharge to home from my standpoint. She should follow up the office in week. She should remain on a low-fat diet for 1 month and avoid lifting greater than 10 lb for 2 weeks. Fall Risk Details Current Medications: Current Medications Acetaminophen (Acetaminophen 325 Mg Tablet) 650 mg PO Q6H PRN PRN Reason: Pain, Mild (Pain Scale 1-3) Last Admin: 01/05/22 03:28 Dose: 650 mg Documented by: Albuterol/Ipratropium (Albuterol/Iprat 2.5/0.5mg 3 Ml Ampul.Neb) 3 ml INHALE RQ4H PRN PRN Reason: sob Last Admin: 01/02/22 19:53 Dose: 3 ml Documented by: Amlodipine Besylate (Amlodipine Besylate 2.5 Mg Tablet) 7.5 mg PO DAILY [facility]; Protocol Docusate Sodium (Docusate Sodium 100 Mg Capsule) 100 mg PO DAILY PRN PRN Reason: Constipation Last Admin: 12/31/21 09:42 Dose: 100 mg Documented by: Lactated Ringer's (Lr) 1,000 mls @ 80 mls/hr IVCONT .[id number] [facility] Last Admin: 01/05/22 02:10 Dose: 80 mls/hr Documented by: Morphine Sulfate (Morphine Sulfate 2 Mg/Ml Cartridge) 2 mg IVPUSH Q4H PRN; Protocol PRN Reason: Pain, Moderate (Pain Scale 4-6 Last Admin: 01/04/22 18:24 Dose: 2 mg Documented by: Ondansetron HCl (Ondansetron Hcl 4 Mg/2 Ml Vial) 4 mg IVPUSH Q8H PRN PRN Reason: Nausea and Vomiting Last Admin: 12/29/21 11:27 Dose: 4 mg Documented by: Oxycodone HCl (Oxycodone Hcl Immed Release 5 Mg Tablet) 5 mg PO Q4H PRN PRN Reason: Pain, Severe (Pain Scale 7-10) Last Admin: 01/05/22 02:09 Dose: 5 mg Documented by: Sodium Chloride (0.9 % Sodium Chloride Flush 3 Ml Syringe) 3 ml IVFLUSH QSHIFT [facility] Last Admin: 01/05/22 07:12 Dose: Not Given Documented by: Tiotropium [place] (Tiotropium [place] 18 Mcg Cap.W.Dev) 1 puff INHALE RDAILY [facility] Last Admin: 01/05/22 07:30 Dose: 1 puff Documented by: Time Spent With Patient Time: Total time spent is greater than 50% in coordination of care (as documented) at patient's floor/unit and/or counseling patient: Time with patient: 15 - 24 minutes Quality Stroke Does the patient have a stroke diagnosis?: No VTE Prior VTE?: No VTE Risk Level:: Medical - moderate - high VTE Device Contraindication: N/A - Device Ordered VTE Drug Contraindication: Treatment Not Indicated
[2022-01-05 07:38] VITALS: BP 150/63; PULSE 68; RESP 18; TEMP 36.4; O2SAT 95
[2022-01-05] MEDS: amLODIPine Besylate 2.5 MG TABLET 7.5 MG PO (07:58)
[2022-01-05] MEDS: Morphine Sulfate 2 MG/ML CARTRIDGE IVPUSH (08:01)
--- NOTE | 2022-01-05 10:44 | HO.POSTANES ---
Post Anesthesia Evaluation Post Anesthesia Evaluation Vital Signs: Vital Signs Temp Pulse Resp BP Pulse Ox 01/05/22 07:38 97.6 F 68 18 150/63 H 95 01/05/22 07:30 78 18 01/05/22 03:54 97.5 F 73 17 135/75 94 01/04/22 23:50 97.2 F 74 17 149/65 H 96 Anesthesia: General Endotracheal-GETA Mental Status: Awake Pain Control: Satisfactory Nausea/Vomiting: None Hydration: Adequate Anesthesia-Related Issues: No Anes. Related Issues
[2022-01-05 11:09] VITALS: BP 126/64; PULSE 76; RESP 18; TEMP 37.1; O2SAT 97
--- NOTE | 2022-01-05 11:43 | PM.DS ---
DS: Providers Provider Date of Service: 01/05/22 Date of admission: 12/29/21 02:49 Primary care physician: Unknown Physician Consults: 12/29/21 02:47 Consult to Gastroenterology Routine Consulting Provider: Bryan Vasquez Reason for consultation: abd pain,dilated cbd Has provider been notified: No 12/29/21 06:04 Consult to General Surgery Routine Consulting Provider: Tyshawn Hanson Reason for consultation: cholelithiasis Has provider been notified: No DS: Diagnosis Discharge Diagnosis (1) Choledocholithiasis: Status: Acute (2) Gallstones: Status: Acute (3) Acute cholecystitis: Status: Acute DS: Summary Hospital Course Hospital Course: 81-year-old female with past medical history of asthma , hyperlipidemia presents to the hospital with complaints of abdominal pain in the right upper quadrant. Hospital course: Patient was admitted for choledocholithiasis-started on pain management, gentle hydration and bowel rest-subsequently seen by GI and patient had ERCP-patient stone was removed, subsequently patient also had lap julián and feeling fine. completed antibiotics for uti. Further management out patiently as per PCP, follow-up with outpatient surgery also. Above management discussed with the patient in detail length she understand and in agreement with the above plan, time spent 50 minutes and 50% time spent on counseling. Significant findings: As above. Procedures performed: None. Treatment and response: As above. Complications: None. Time Spent with Patient Time attestation: Total time spent providing and/or coordinating discharge services: Discharge coordination time: Greater than 30 minutes Quality: Stroke Does the patient have a stroke diagnosis?: No Physical Exam Vital Signs: Vital Signs: Last Vital Signs Temp 98.8 F 01/05/22 11:09 Pulse 76 01/05/22 11:09 Resp 18 01/05/22 11:09 BP 126/64 01/05/22 11:09 Pulse Ox 97 01/05/22 11:09 BMI result Body Mass Index 25.4 Appearance: Alert.? Oriented X3.? not in distress.? cvs: rrr, [id number] , no murmur res: clear to auscultation ,no rhonchii or wheezing abd: no rebound or guarding ,nt, bs present, lap julián -site clean , no dischrage. ext pulses present , no cyanosis. neuro: axo3 , nonfocal. DS: Data Data Completed and Pending Pending studies at discharge: Pending at discharge 01/04/22 15:04 Surgical [PTH] Routine Labs on day of discharge: ? 01/03/22 ? 05:41 Anion Gap ?12 Estim Creat Clear Calc ?73.4 Estimated GFR ?> 60 Random Glucose ?82 Calcium ?8.4 Total Bilirubin ?0.8 Direct Bilirubin ?0.3 AST ?20 ALT ?14 Alkaline Phosphatase ?61 Total Protein ?5.4 L Albumin ?3.2 L Microbiology Microbiology Results: Microbiology ?12/29/21 03:24 Blood Culture - Final ?Blood - Venous ?? No growth after 5 days. ?12/29/21 02:36 Blood Culture - Final ?Blood - Venous ?? No growth after 5 days. Additional Comments Additional comments: MR/MR MRCP IMPRESSION: Mild intra and extrahepatic biliary duct dilatation. 3 mm distal common bile duct stone. Upper normal-size gallbladder and small gallstones. No evidence of cholecystitis. Mild dilatation of the distal main pancreatic duct in the head of the pancreas. The main pancreatic duct and pancreas are otherwise normal. Bilateral peripelvic cysts and question mild right UPJ obstruction. Diverticulosis of the colon.? Discharge Plan Discharge Patient Disposition: Home, Self-Care Discharge Diagnosis: Acute cholecystitis, choledocholithiasis Referrals: Chavo Luque MD [Physician] - 1 Week PhysicianCarlos Manuel [Primary Care Provider] - 1 Week Discharge Medications: New docusate sodium 100 mg Capsule 100 mg PO DAILY PRN (Reason: Constipation) Qty: 30 0RF oxycodone-acetaminophen [Percocet] 2.5-325 mg tablet 1 tab PO Q8H PRN (Reason: pain) Qty: 10 0RF polyethylene glycol 3350 [Miralax] 17 gram/dose powder 17 g PO DAILY PRN (Reason: constipation) Qty: 119 0RF amlodipine 2.5 mg Tablet 7.5 mg PO DAILY Qty: 30 0RF Protocol: Hold for SBP< HOLD for SBP < : 90 Continued clopidogrel 75 mg tablet 1 tab PO DAILY 0RF rosuvastatin 20 mg tablet 1 tab PO DAILY 0RF Incruse Ellipta 62.5 mcg/actuation blister with device 1 puff PO DAILY 0RF Discharge Orders: Discharge Order (Routine); Ordered 03/01/22 Ordered By: Sukhchain Galicia Diet: low fat, low cholesterol Activity on Discharge: No heavy lifting Stand Alone Forms: Patient Portal Discharge page Activity Restrictions/Additional Instructions: If the incision area is tender, you may apply an ice pack for short intervals (No more than 20 minutes on, followed by at least 20 minutes off). Do not apply heat. Do not use creams, lotions, or topical antibiotics unless instructed to do so by your surgeon. These can cause infection or allergic reaction. Ok to shower. Remove clear dressings 3 days following your procedure. You have steri strips (small white cloth strips) covering your incision- these will fall off ~1 week. No heavy lifting (>10lbs)! Follow up in office with Dr. Luque in 1 week. ([phone]) Call Your Doctor If: -Your temperature exceeds 101.5? F -You experience excessive pain or swelling -You have an unexpected reaction to medication -You have excessive bleeding -You experience continued vomiting/nausea -Your incision begins to separate -Your incision shows signs of infection such as increased redness, swelling, excessive pain, drainage (light blood or clear fluid is normal) or heat Care Plan Goals: Patient was admitted for choledocholithiasis-started on pain management, gentle hydration and bowel rest-subsequently seen by GI and patient had ERCP-patient stone was removed, subsequently patient also had lap julián and feeling fine. completed antibiotics for uti. Further management out patiently as per PCP, follow-up with outpatient surgery also. Health Concerns: As above. Plan of Treatment: As above. Assessment: As above. Discharge Date/Time: 01/05/22 13:36
--- NOTE | 2022-01-05 12:03 | MHC.CM.PN ---
NURSE VETERINARY PARASITOLOGIST NOTE ELECTRONIC MEDICAL RECORD REVIEWED GENESIS EDISCUSSED WITH HOSPITLAIST AND MET WITH PATIENT SHE WILL BE DISCJHAGRED SHAN DISCHARGE PLAN HPME TDAY WITH NO SERVICES TRANS[[facility] IMM UPDATED TODAY
== END 2022-01-05 13:36 | disposition home or self-care (01) | DRG 418 ==
LOC: HO.ED 12-29 02:52 → HO.EDOVER 12-29 02:58 → HO.S3 12-29 13:52
PROVIDERS: Internal Medicine Gastroenterology; Surgery; Admitting Provider Internal Medicine; Emergency Provider Student in an Organized Health Care Education/Training Program; PCP Nurse Practitioner Family; Visit Provider Internal Medicine
PROC: 0F798ZZ Dilation of Common Bile Duct, Via Natural or Artificial Opening Endoscopic (ICD-10-PCS; CPT 43260; principal; 2022-01-01 10:30)
PROC: 0FT44ZZ Resection of Gallbladder, Percutaneous Endoscopic Approach (ICD-10-PCS; CPT 47562; principal; 2022-01-04 13:30)
DX: K80.00 Calculus of gallbladder with acute cholecystitis without obstruction (principal); N39.0 Urinary tract infection, site not specified; E78.5 Hyperlipidemia, unspecified; I10 Essential (primary) hypertension; I73.9 Peripheral vascular disease, unspecified; J43.9 Emphysema, unspecified; Z20.822 Contact with and (suspected) exposure to COVID-19; Z88.5 Allergy status to narcotic agent; Z87.891 Personal history of nicotine dependence; Z79.02 Long term (current) use of antithrombotics/antiplatelets; Z79.899 Other long term (current) drug therapy
CPT/HCPCS: 36415; 74177; 74181; 76705; 80048; 80053; 80076; 81001; 83605; 83690; 84484; 85025; 85027; 85610; 87040; 87086; 87635; 88304; 93005; 94640; 96374; 99024; 99285; C1769; J0131; J0696; J1100; J1170; J1610; J2060; J2250; J2270; J2405; J3010; Q9967

== ENCOUNTER → 2022-01-12 09:20 | Outpatient (BNVA) | payer MEDICARE, MEDICAID, SELFPAY | PROVIDERS: PCP Nurse Practitioner Family; Referring Provider Nurse Practitioner Family; Visit Provider Surgery | DX: Z09 Encounter for follow-up examination after completed treatment for conditions other than malignant neoplasm (principal); Z87.19 Personal history of other diseases of the digestive system; Z90.49 Acquired absence of other specified parts of digestive tract | CPT/HCPCS: 99212 ==

== ENCOUNTER 2022-02-25 17:24 | Emergency (ER) | payer MEDICARE, MEDICAID, SELFPAY ==
--- NOTE | ~2022-02-25 | XR_ITS ---
EXAMINATION: XR WRIST, LEFT CLINICAL INFORMATION: Trauma. Fall. COMPARISON: None TECHNIQUE: 5 views of the left wrist. FINDINGS: There is an acute comminuted distal radius fracture with intra-articular extension. The distal radius is impacted but not significantly angulated. The bones are diffusely osteopenic. Faint calcifications over the radiocarpal joint likely reflect degenerative chondrocalcinosis. Severe degenerative changes in the first carpometacarpal joint. XR/XR wrist LT 2V IMPRESSION: Comminuted impacted distal radius fracture with intra-articular extension.
--- NOTE | ~2022-02-25 | XR_ITS ---
EXAMINATION: XR WRIST HAND LEFT CLINICAL INFORMATION: Status post reduction COMPARISON: Radiographs of the wrist from 02/25/2022 at 6:05 PM TECHNIQUE: Left hand/wrist, 3 views XR/XR hand wrist LT FINDINGS AND IMPRESSION: The osseous details are partially obscured by the overlying splint. Bones appear to be diffusely osteopenic. There has been closed reduction of the comminuted intra-articular fracture of the distal radius. The radial fracture fragments remain in near-anatomic position. No interval change in position or alignment of the fracture fragments compared to prior radiographs from 6:05 PM. The carpal bones are intact. There is mild osteoarthritis of the triscaphe joint and severe osteoarthritis of the first carpometacarpal joint.
[2022-02-25 17:52] VITALS: BP 179/86; PULSE 102; RESP 16; TEMP 36.9; O2SAT 98; BMI 22.6
--- NOTE | 2022-02-25 19:02 | ED.EXTPRO ---
HPI - Extremity Problem General Chief complaint: Extremity Injury, Upper Stated complaint: fall/Wrist pain Time Seen by Provider: 02/25/22 19:02 Source: patient Mode of arrival: ambulatory History of Present Illness HPI Narrative: Patient was walking with a suitcase got stuck had a mechanical fall around 10:00 today landed on her left wrist came here with increased swelling and pain in the left wrist with obvious deformity. No head injury no loss of consciousness patient is on Plavix Related Data Home Medications Medication Instructions Recorded Confirmed clopidogrel 75 mg tablet 1 tab PO DAILY 12/29/21 01/12/22 rosuvastatin 20 mg tablet 1 tab PO DAILY 12/29/21 01/12/22 umeclidinium 62.5 mcg/actuation 1 puff PO DAILY 12/29/21 01/12/22 blister powder for inhalation (Incruse Ellipta) Previous Rx's Medication Instructions Recorded amlodipine 2.5 mg tablet 7.5 mg PO DAILY #30 tab 01/05/22 docusate sodium 100 mg capsule 100 mg PO DAILY PRN #30 cap 01/05/22 oxycodone-acetaminophen 2.5 mg-325 1 tab PO Q8H PRN #10 tab 01/05/22 mg tablet (Percocet) polyethylene glycol 3350 17 17 g PO DAILY PRN #119 g 01/05/22 gram/dose oral powder (Miralax) tramadol 50 mg tablet 50 mg PO Q6H PRN #20 tab 02/25/22 Allergies Allergy/AdvReac Type Severity Reaction Status Date / Time lactose [LACTOSE] Allergy Intermediate ABDOMINAL Verified 01/12/22 10:06 PAIN codeine [CODEINE] Allergy Unknown HIVES, Verified 01/12/22 10:06 HEADACHES, hives lactose intolerant Allergy Unknown Abdominal Uncoded 01/12/22 10:06 Pain Review of Systems Review of Systems: Yes all other systems are reviewed and are negative PMFSH Past Medical History Medical History Emphysema of lung Endometrial cancer Hyperlipidemia PVD (peripheral vascular disease) Surgical History H/O: hysterectomy History of hip replacement History of knee replacement Hx of discectomy S/P ERCP Family History Family History Other No family history of coronary artery disease Social History Social History Household Members: None Housing: Apartment Do you presently have visiting nurse or other home services: No Alcohol intake: current Alcohol intake frequency: holidays/special occasions only Patient Tobacco Use Status: Former Tobacco user Quit Date: 20 years ago Advance Directives: No Advance Directives Information Provided: No service: No Current occupational status: retired Physical Exam Vital Signs: Vital Signs: Last Vital Signs Temp 98.5 F 02/25/22 17:52 Pulse 102 H 02/25/22 17:52 Resp 16 02/25/22 17:52 BP 179/86 H 02/25/22 17:52 Pulse Ox 98 02/25/22 17:52 BMI result Body Mass Index 22.6 Const: General: healthy appearing, comfortable and no acute distress Nutritional Appearance: average body habitus Orientation/consciousness: patient oriented x3 HEENT: Head: Yes normocephalic and Yes atraumatic Ears: hearing grossly normal bilaterally Neck: Neck: Yes normal visual inspection, Yes supple and No tender Chest: Chest palpation & inspection: normal inspection of the chest and normal palpation of entire chest wall Resp: Effort & Inspection: normal respiratory effort Auscultation: clear to auscultation bilaterally Cardio: Palpation: normal PMI Rate: regular rate Rhythm: regular rhythm Heart sounds: S1 normal heart sound present and S2 normal heart sound present GI: Inspection: Yes normal to inspection Palpation (GI): Soft to palpation and nontender Back/Spine/Pelvis: Thoracic/Lumbar Spine: No thoracic spinal tenderness and No lumbar spinal tenderness Neuro: General: patient oriented x3 and no focal motor deficits Extrem: Elbow/forearm/wrist images: 1. Swelling obvious deformity of left distal radius area suggestive of Colles fracture neurovascular intact Upper/lower leg/hip images: 1. Superficial abrasion good range of movement of the knee no joint effusion MDM - Extremity (Nontraumatic) MDM Narrative Medical decision making narrative: Patient status post mechanical fall with left Colles fracture with small fragment of bones at fracture site close reduction was done with acceptable anatomic reduction patient is to follow with Dr. Cruz orthopedics Procedures Orthopedic Fracture Reduction Fracture #1: Time Out Performed: Yes Side: left Analgesia: hematoma block Technique: traction/counter-traction and finger traps Post Reduction X-rays Demonstrate: acceptable reduction Post-reduction neuro exam: intact Post-reduction vascular exam: intact Splint Applied: Yes Patient Tolerated Procedure: well Orthopedic Splinting/Casting Injury #1: Side: left Upper Extremity Injury Location: wrist Upper Extremity Immobilizer: sugar tong splint Discharge Plan Discharge Clinical Impression: Colles' fracture Patient Disposition: Home, Self-Care Instructions: Wrist Fracture in Adults (ED) Additional Instructions: Keep your left arm in sling and splint Follow-up with orthopedics next week tramadol for pain Prescriptions: New tramadol 50 mg tablet 50 mg PO Q6H PRN (Reason: pain) Qty: 20 0RF No Action clopidogrel 75 mg tablet 1 tab PO DAILY 0RF rosuvastatin 20 mg tablet 1 tab PO DAILY 0RF Incruse Ellipta 62.5 mcg/actuation blister with device 1 puff PO DAILY 0RF docusate sodium 100 mg Capsule 100 mg PO DAILY PRN (Reason: Constipation) Qty: 30 0RF oxycodone-acetaminophen [Percocet] 2.5-325 mg tablet 1 tab PO Q8H PRN (Reason: pain) Qty: 10 0RF polyethylene glycol 3350 [Miralax] 17 gram/dose powder 17 g PO DAILY PRN (Reason: constipation) Qty: 119 0RF amlodipine 2.5 mg Tablet 7.5 mg PO DAILY Qty: 30 0RF Protocol: Hold for SBP< HOLD for SBP < : 90 Referrals: Vamshi Cruz MD [Physician] - 5 days Interventions: ED Discharge Assessment Last Done: 02/25/22 20:28 Discharge Date/Time: 02/25/22 20:31
[2022-02-25] MEDS: Lidocaine HCl 2 % MPF 5 ML VIAL INFILTRATI (19:39)
[2022-02-25] MEDS: traMADoL HCL 50 MG TABLET PO (20:20)
== END 2022-02-25 20:31 | disposition home or self-care (01) ==
PROVIDERS: Emergency Provider Internal Medicine; PCP Nurse Practitioner Family
DX: S52.532A Colles' fracture of left radius, initial encounter for closed fracture (principal); M25.532 Pain in left wrist; X50.1XXA Overexertion from prolonged static or awkward postures, initial encounter; Y93.9 Activity, unspecified; Y92.9 Unspecified place or not applicable; Y99.9 Unspecified external cause status; Z87.891 Personal history of nicotine dependence; Z79.899 Other long term (current) drug therapy
CPT/HCPCS: 25605; 29125; 73100; 73110; 73130; 99284

== ENCOUNTER 2022-02-26 18:34 | Emergency (ER) | payer MEDICARE, MEDICAID, SELFPAY ==
[2022-02-26 18:48] VITALS: BP 171/69; PULSE 99; RESP 19; TEMP 36.7; O2SAT 97; BMI 24.8
--- NOTE | 2022-02-26 19:10 | ED.GENADULT ---
HPI - General Adult General Chief complaint: General Medical Stated complaint: Pain from broken wrist Time Seen by Provider: 02/26/22 19:10 Source: patient Mode of arrival: ambulatory Limitations: no limitations Related Data Home Medications Medication Instructions Recorded Confirmed clopidogrel 75 mg tablet 1 tab PO DAILY 12/29/21 01/12/22 rosuvastatin 20 mg tablet 1 tab PO DAILY 12/29/21 01/12/22 umeclidinium 62.5 mcg/actuation 1 puff PO DAILY 12/29/21 01/12/22 blister powder for inhalation (Incruse Ellipta) Previous Rx's Medication Instructions Recorded amlodipine 2.5 mg tablet 7.5 mg PO DAILY #30 tab 01/05/22 docusate sodium 100 mg capsule 100 mg PO DAILY PRN #30 cap 01/05/22 oxycodone-acetaminophen 2.5 mg-325 1 tab PO Q8H PRN #10 tab 01/05/22 mg tablet (Percocet) polyethylene glycol 3350 17 17 g PO DAILY PRN #119 g 01/05/22 gram/dose oral powder (Miralax) tramadol 50 mg tablet 50 mg PO Q6H PRN #20 tab 02/25/22 Allergies Allergy/AdvReac Type Severity Reaction Status Date / Time lactose [LACTOSE] Allergy Intermediate ABDOMINAL Verified 02/26/22 18:51 PAIN codeine [CODEINE] Allergy Unknown HIVES, Verified 02/26/22 18:51 HEADACHES, hives lactose intolerant Allergy Unknown Abdominal Uncoded 02/26/22 18:51 Pain PMFSH Past Medical History Medical History Emphysema of lung Endometrial cancer Hyperlipidemia PVD (peripheral vascular disease) Surgical History H/O: hysterectomy History of hip replacement History of knee replacement Hx of discectomy S/P ERCP Family History Family History Other No family history of coronary artery disease Social History Social History Household Members: None Housing: Apartment Do you presently have visiting nurse or other home services: No Alcohol intake: current Alcohol intake frequency: holidays/special occasions only Patient Tobacco Use Status: Former Tobacco user Quit Date: 20 years ago Advance Directives: No Advance Directives Information Provided: No service: No Current occupational status: retired Physical Exam ED Vital Signs: Vital Signs - 24 hr 02/26/22 18:48 Temperature 98.1 F Pulse Rate 99 Respiratory Rate 19 Blood Pressure 171/69 H Pulse Oximetry 97 BMI result Body Mass Index 24.8 Discharge Plan Discharge Prescriptions: No Action tramadol 50 mg tablet 50 mg PO Q6H PRN (Reason: pain) Qty: 20 0RF clopidogrel 75 mg tablet 1 tab PO DAILY 0RF rosuvastatin 20 mg tablet 1 tab PO DAILY 0RF Incruse Ellipta 62.5 mcg/actuation blister with device 1 puff PO DAILY 0RF docusate sodium 100 mg Capsule 100 mg PO DAILY PRN (Reason: Constipation) Qty: 30 0RF oxycodone-acetaminophen [Percocet] 2.5-325 mg tablet 1 tab PO Q8H PRN (Reason: pain) Qty: 10 0RF polyethylene glycol 3350 [Miralax] 17 gram/dose powder 17 g PO DAILY PRN (Reason: constipation) Qty: 119 0RF amlodipine 2.5 mg Tablet 7.5 mg PO DAILY Qty: 30 0RF Protocol: Hold for SBP< HOLD for SBP < : 90
[2022-02-26] MEDS: oxyCODONE HCl Immed Release 5 MG TABLET PO (19:50)
--- NOTE | 2022-02-27 01:29 | ED_ITS ---
HPI - General Adult General Chief complaint: General Medical Stated complaint: Pain from broken wrist Time Seen by Provider: 02/26/22 19:10 Source: patient Mode of arrival: ambulatory Limitations: no limitations History of Present Illness HPI narrative: Patient was seen here with left Colles fracture yesterday and splint was applied patient comes here today for pain under the splint try to take her tramadol without much response no change of discoloration of the fingers Related Data Home Medications Medication Instructions Recorded Confirmed clopidogrel 75 mg tablet 1 tab PO DAILY 12/29/21 01/12/22 rosuvastatin 20 mg tablet 1 tab PO DAILY 12/29/21 01/12/22 umeclidinium 62.5 mcg/actuation 1 puff PO DAILY 12/29/21 01/12/22 blister powder for inhalation (Incruse Ellipta) Previous Rx's Medication Instructions Recorded amlodipine 2.5 mg tablet 7.5 mg PO DAILY #30 tab 01/05/22 docusate sodium 100 mg capsule 100 mg PO DAILY PRN #30 cap 01/05/22 oxycodone-acetaminophen 2.5 mg-325 1 tab PO Q8H PRN #10 tab 01/05/22 mg tablet (Percocet) polyethylene glycol 3350 17 17 g PO DAILY PRN #119 g 01/05/22 gram/dose oral powder (Miralax) tramadol 50 mg tablet 50 mg PO Q6H PRN #20 tab 02/25/22 oxycodone-acetaminophen 5 mg-325 1 tab PO Q6H PRN #20 tab 02/26/22 mg tablet (Percocet) Allergies Allergy/AdvReac Type Severity Reaction Status Date / Time lactose [LACTOSE] Allergy Intermediate ABDOMINAL Verified 02/26/22 18:51 PAIN codeine [CODEINE] Allergy Unknown HIVES, Verified 02/26/22 18:51 HEADACHES, hives lactose intolerant Allergy Unknown Abdominal Uncoded 02/26/22 18:51 Pain Review of Systems Review of Systems: Yes all other systems are reviewed and are negative [facility] Past Medical History Medical History Emphysema of lung Endometrial cancer Hyperlipidemia PVD (peripheral vascular disease) Surgical History H/O: hysterectomy History of hip replacement History of knee replacement Hx of discectomy S/P ERCP Family History Family History Other No family history of coronary artery disease Social History Social History Household Members: None Housing: Apartment Do you presently have visiting nurse or other home services: No Alcohol intake: current Alcohol intake frequency: holidays/special occasions only Patient Tobacco Use Status: Former Tobacco user Quit Date: 20 years ago Advance Directives: No Advance Directives Information Provided: No service: No Current occupational status: retired Physical Exam ED Vital Signs: Vital Signs - 24 hr 02/26/22 18:48 Temperature 98.1 F Pulse Rate 99 Respiratory Rate 19 Blood Pressure 171/69 H Pulse Oximetry 97 BMI result Body Mass Index 24.8 Patient alert oriented in mild discomfort Left forearm and splint fingers with good capillary refill good movements Medical Decision Making MDM Narrative Medical decision making narrative: Patient's splint was reapplied felt little better of ice pack was applied discharge patient home the news in sling follow with Orthopedics Discharge Plan Discharge Clinical Impression: Colles' fracture of left radius Patient Disposition: Home, Self-Care Instructions: Wrist Fracture in Adults (ED) Additional Instructions: With the splint as advised and follow up with Orthopedics as scheduled Pain medication as prescribed Keep left arm elevated Prescriptions: New oxycodone-acetaminophen [Percocet] 5-325 mg tablet 1 tab PO Q6H PRN (Reason: pain) Qty: 20 0RF No Action tramadol 50 mg tablet 50 mg PO Q6H PRN (Reason: pain) Qty: 20 0RF clopidogrel 75 mg tablet 1 tab PO DAILY 0RF rosuvastatin 20 mg tablet 1 tab PO DAILY 0RF Incruse Ellipta 62.5 mcg/actuation blister with device 1 puff PO DAILY 0RF docusate sodium 100 mg Capsule 100 mg PO DAILY PRN (Reason: Constipation) Qty: 30 0RF oxycodone-acetaminophen [Percocet] 2.5-325 mg tablet 1 tab PO Q8H PRN (Reason: pain) Qty: 10 0RF polyethylene glycol 3350 [Miralax] 17 gram/dose powder 17 g PO DAILY PRN (Reason: constipation) Qty: 119 0RF amlodipine 2.5 mg Tablet 7.5 mg PO DAILY Qty: 30 0RF Protocol: Hold for SBP< HOLD for SBP < : 90 Interventions: ED Discharge Assessment Last Done: 02/26/22 20:36 Discharge Date/Time: 02/26/22 20:36
== END 2022-02-26 20:36 | disposition home or self-care (01) ==
PROVIDERS: Emergency Provider Internal Medicine; PCP Nurse Practitioner Family
DX: M25.532 Pain in left wrist (principal); Z79.899 Other long term (current) drug therapy
CPT/HCPCS: 99283; 99284

== ENCOUNTER 2022-03-02 08:34 | Outpatient (REF) | payer MEDICARE, MEDICAID, SELFPAY ==
--- NOTE | ~2022-03-02 | XR_ITS ---
EXAMINATION: XR WRIST, LEFT CLINICAL INFORMATION: Pain in left wrist COMPARISON: Radiographs of the left wrist 02/25/2022 TECHNIQUE: PA, lateral, and oblique views of the left wrist. FINDINGS: Redemonstration of comminuted, impacted, intra-articular fracture of the left distal radius which is essentially unchanged from prior radiograph. There is moderate soft tissue edema about the wrist. There are stable degenerative changes at the carpometacarpal junction, particularly at the first carpometacarpal joint. XR/XR wrist LT min 3V IMPRESSION: Essentially unchanged appearance of comminuted, impacted, intra-articular left distal radial fracture with major fracture fragments in alignment.
== END 2022-03-02 08:35 | disposition home or self-care (01) ==
LOC: HO.HOSX 08:34
PROVIDERS: Visit Provider Orthopaedic Surgery
DX: S52.502A Unspecified fracture of the lower end of left radius, initial encounter for closed fracture (principal)
CPT/HCPCS: 73110; 99202

== ENCOUNTER 2022-03-09 08:45 | Outpatient (REF) | payer MEDICARE, MEDICAID, SELFPAY ==
--- NOTE | ~2022-03-09 | XR_ITS ---
EXAMINATION: XR WRIST, LEFT CLINICAL INFORMATION: Fracture. COMPARISON: Previous x-ray February 2022 TECHNIQUE: PA, lateral, and oblique views of the left wrist. FINDINGS: There is a comminuted fracture of the left distal radius intra-articular with the radiocarpal joint. Fracture lines are still seen. Alignment is unchanged. No other fracture is seen. There is arthritis at the first CUSTODIAL and trapezoid trapezium scaphoid joints. Soft tissues are unremarkable. XR/XR wrist LT min 3V IMPRESSION: No change in left distal radius fracture.
== END 2022-03-09 08:46 | disposition home or self-care (01) ==
LOC: HO.HOSX 08:45
PROVIDERS: Visit Provider Orthopaedic Surgery
DX: S52.502A Unspecified fracture of the lower end of left radius, initial encounter for closed fracture (principal)
CPT/HCPCS: 73110; 99212

== ENCOUNTER 2022-03-30 09:10 | Outpatient (REF) | payer MEDICARE, MEDICAID, SELFPAY ==
--- NOTE | ~2022-03-30 | XR_ITS ---
EXAMINATION: XR WRIST, LEFT CLINICAL INFORMATION: Pain left wrist. COMPARISON: Left wrist 03/09/2022 TECHNIQUE: PA, lateral, and oblique views of the left wrist. FINDINGS: There is a slow healing fracture distal radius without any displacement. Minimal dorsal and volar soft tissues are visualized. There is mild osteopenia. XR/XR wrist LT min 3V IMPRESSION: Slowly healing fracture left distal radius with mild dorsal and volar soft tissue swelling. No major change compared to 03/09/2022.
== END 2022-03-30 09:11 | disposition home or self-care (01) ==
LOC: HO.HOSX 09:10
PROVIDERS: Visit Provider Orthopaedic Surgery
DX: S52.502D Unspecified fracture of the lower end of left radius, subsequent encounter for closed fracture with routine healing (principal)
CPT/HCPCS: 73110; 99212

== ENCOUNTER 2022-03-31 20:04 | Emergency (ER) | payer MEDICARE, MEDICAID, SELFPAY ==
--- NOTE | ~2022-03-31 | XR_ITS ---
EXAMINATION: XR WRIST, LEFT CLINICAL INFORMATION: Pain COMPARISON: Portions of the study 03/30/22, 02/25/22 TECHNIQUE: Four views of the left wrist. FINDINGS: There is condensation and sclerosis with probable developing callus associated with the distal radial diaphyseal fracture. There is an intra-articular component involving the ulnar corner of the articular surface of the radius. There is some regional osteopenia. There is some dorsal proliferative change at the fracture margin. Difficult to determine the degree of callus. There is narrowing at the radial aspect of the midcarpal joint and narrowing at the first and second carpometacarpal joints. There is some soft tissue swelling. In comparison with 02/25/22 there has been some interval healing. No convincing change in position XR/XR wrist LT min 3V IMPRESSION: Regional osteopenia. Healing displaced intra-articular distal radial fracture.
[2022-03-31 20:59] VITALS: BP 174/67; PULSE 84; RESP 18; TEMP 36.7; O2SAT 98; BMI 23.8
[2022-03-31] MEDS: Ibuprofen 600 MG TABLET PO (21:04)
--- NOTE | 2022-04-01 00:19 | ED_ITS ---
HPI - General Adult General Chief complaint: Upper Respiratory Symptoms Stated complaint: Left wrist pain hx of being broken Time Seen by Provider: 04/01/22 00:01 Source: patient Mode of arrival: ambulatory Limitations: no limitations History of Present Illness HPI narrative: Patient fell and broke her wrist 4 weeks ago, yesterday Dr. Healy took the cast off. The wrist is swollen and worsening pain. Patient states the the range of motion exersices done in the office made her worse. The wrist feels hot to her. Patient denies any trauma since taking the cast off. Onset (ago): hour(s) Location: upper extremity Severity: moderate Relieving factors: none Exacerbating factors: none Associated symptoms: denies other symptoms Related Data Home Medications Medication Instructions Recorded Confirmed clopidogrel 75 mg tablet 1 tab PO DAILY 12/29/21 01/12/22 rosuvastatin 20 mg tablet 1 tab PO DAILY 12/29/21 01/12/22 umeclidinium 62.5 mcg/actuation 1 puff PO DAILY 12/29/21 01/12/22 blister powder for inhalation (Incruse Ellipta) Previous Rx's Medication Instructions Recorded amlodipine 2.5 mg tablet 7.5 mg PO DAILY #30 tab 01/05/22 docusate sodium 100 mg capsule 100 mg PO DAILY PRN #30 cap 01/05/22 oxycodone-acetaminophen 2.5 mg-325 1 tab PO Q8H PRN #10 tab 01/05/22 mg tablet (Percocet) polyethylene glycol 3350 17 17 g PO DAILY PRN #119 g 01/05/22 gram/dose oral powder (Miralax) tramadol 50 mg tablet 50 mg PO Q6H PRN #20 tab 02/25/22 oxycodone-acetaminophen 5 mg-325 1 tab PO Q6H PRN #20 tab 02/26/22 mg tablet (Percocet) hydrocodone 5 mg-acetaminophen 325 1 tab PO Q4-6H PRN #10 tab 03/02/22 mg tablet Allergies Allergy/AdvReac Type Severity Reaction Status Date / Time lactose [LACTOSE] Allergy Intermediate ABDOMINAL Verified 03/31/22 20:58 PAIN codeine [CODEINE] Allergy Unknown HIVES, Verified 03/31/22 20:58 HEADACHES, hives lactose intolerant Allergy Unknown Abdominal Uncoded 03/30/22 12:24 Pain Review of Systems Constitutional: Constitutional: Reports no additional constitutional complaints Eyes: Eyes: Reports no additional eye complaints ENT: Denies dizziness Cardiovascular: Cardiovascular: Reports no additional cardiovascular complaints Respiratory: Respiratory: Reports as per HPI Gastrointestinal: Gastrointestinal: Reports no additional gastrointestinal complaints Genitourinary: Genitourinary: Reports no additional female genitourinary complaints Musculoskeletal: Musculoskeletal: Reports no additional musculoskeletal complaints Integumentary/Breasts: Skin/Breast: Denies rash Neurologic: Reports system reviewed and no additional complaints, except as documented, Denies dizziness and Denies Sensory deficit (Neuro) Psychiatric: Psychiatric: Denies anxiety [facility] Past Medical History Medical History Emphysema of lung Endometrial cancer Hyperlipidemia PVD (peripheral vascular disease) Surgical History (Reviewed 04/01/22 @ 00: by Cm Sifuentes MD) H/O: hysterectomy History of hip replacement History of knee replacement Hx of discectomy S/P ERCP Family History Family History (Reviewed 04/01/22 @ 00: by Cm Sifuentes MD) Other No family history of coronary artery disease Social History Social History (Reviewed 04/01/22 @ 00: by Cm Sifuentes MD) Household Members: None Housing: Apartment Do you presently have visiting nurse or other home services: No Alcohol intake: current Alcohol intake frequency: holidays/special occasions only Patient Tobacco Use Status: Former Tobacco user Quit Date: 20 years ago Advance Directives: No Advance Directives Information Provided: Yes service: No Current occupational status: retired 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 Physical Exam ED Vital Signs: Vital Signs - 24 hr 03/31/22 20:59 Temperature 98.1 F Pulse Rate 84 Respiratory Rate 18 Blood Pressure 174/67 H Pulse Oximetry 98 BMI result Body Mass Index 23.8 Neuro Sensory Exam: No Sensory deficit (Neuro) Extrem Other: left wrist with hard callous over the wrist, no erythema, no effusion Course Reevaluation(s) Reevaluation #1: patient with healing wrist fracture with development of good callous, no evidence of infection will give high dose antiiflammatory for pain Time: 00:30 Medical Decision Making Imaging Data wrist xray: Radiologist's impression: FINDINGS: There is condensation and sclerosis with probable developing callus associated with the distal radial diaphyseal fracture. There is an intra-articular component involving the ulnar corner of the articular surface of the radius. There is some regional osteopenia. There is some dorsal proliferative change at the fracture margin. Difficult to determine the degree of callus. There is narrowing at the radial aspect of the midcarpal joint and narrowing at the first and second carpometacarpal joints. There is some soft tissue swelling. In comparison with 02/25/22 there has been some interval healing. No convincing change in position? XR/XR wrist LT min 3V IMPRESSION: Regional osteopenia. Healing displaced intra-articular distal radial fracture. ? Discharge Plan Discharge Clinical Impression: Distal radius fracture, left Patient Disposition: Home, Self-Care Instructions: Wrist Fracture in Adults (ED) Additional Instructions: Patient should take mostly Tylenol 1gm every 6 hours for pain Prescriptions: No Action tramadol 50 mg tablet 50 mg PO Q6H PRN (Reason: pain) Qty: 20 0RF oxycodone-acetaminophen [Percocet] 5-325 mg tablet 1 tab PO Q6H PRN (Reason: pain) Qty: 20 0RF clopidogrel 75 mg tablet 1 tab PO DAILY 0RF rosuvastatin 20 mg tablet 1 tab PO DAILY 0RF Incruse Ellipta 62.5 mcg/actuation blister with device 1 puff PO DAILY 0RF docusate sodium 100 mg Capsule 100 mg PO DAILY PRN (Reason: Constipation) Qty: 30 0RF oxycodone-acetaminophen [Percocet] 2.5-325 mg tablet 1 tab PO Q8H PRN (Reason: pain) Qty: 10 0RF polyethylene glycol 3350 [Miralax] 17 gram/dose powder 17 g PO DAILY PRN (Reason: constipation) Qty: 119 0RF amlodipine 2.5 mg Tablet 7.5 mg PO DAILY Qty: 30 0RF Protocol: Hold for SBP< HOLD for SBP < : 90 hydrocodone-acetaminophen 5-325 mg tablet 1 tab PO Q4-6H PRN (Reason: pain) Qty: 10 0RF Referrals: Trish Healy MD [Physician] - 1 week
[2022-04-01] MEDS: Ketorolac Tromethamine 60 MG/2 ML VIAL IM (01:12)
== END 2022-04-01 01:17 | disposition home or self-care (01) ==
PROVIDERS: Emergency Provider Emergency Medicine; PCP Nurse Practitioner Family
DX: S52.502A Unspecified fracture of the lower end of left radius, initial encounter for closed fracture (principal); M25.532 Pain in left wrist; W19.XXXA Unspecified fall, initial encounter; Y93.9 Activity, unspecified; Y92.9 Unspecified place or not applicable; Y99.9 Unspecified external cause status; Z87.891 Personal history of nicotine dependence; Z79.899 Other long term (current) drug therapy
CPT/HCPCS: 73110; 96372; 99282; 99283; 99284; J1885

== ENCOUNTER 2022-05-18 14:30 | Outpatient (RCR) | payer MEDICARE, MEDICAID, SELFPAY ==
--- NOTE | 2022-04-14 15:33 | MHC.OT.OEV ---
[address] [phone] F: [phone] Occupational Therapy Evaluation Diagnosis: Left distal radius fracture Date of Onset: 02/25/22 Date of Surgery: Attending Provider: Trish Healy Prescribed Treatment: Follow Up Appointment: 05/11/22 History of Current Condition: Pt reports a fall on a curb, and getting help from a pedestrian to stand. She was brought to the ED via her children Cast removed 03/31/22 and pt now in a pre vadim wrist support for protection Significant Medical History: Emphysema, OA, back surgery, R TKA, L PENNY, Precautions/Contraindications: Non wt bearing left hand Patient Goals: Regain mobility and strength Hand Dominance: Right Observations: QuickDASH Score: 45 Prior Level of Function and Occupation Self Care, Employment, Leisure: Indep in all areas without assistance Does not drive , family and public transportation Sewing Living Situation, Family and/or Social Support: Lives alone , elderly complex Good family support Current Level of Function and Occupation Self Care, Employment, Leisure: Indep with all ADL, some difficulty pulling on clothes Assist with heavy homemaking Light cooking. Able to peel potatoes, chopping onion. Avoiding heavy lifting Sleep: Wearing wrist support up at night up to today... Driving: NA Vision: Glasses Balance: Pain Assessment Pain Score: 7 Pain Scale Used: Numeric (0 - 10) Pain Location and Description: 0-7 Warm, occassional thumb pain Aggravating Factors: Thumb exercises and wrist ext.. Alleviating Factors: Skin and Soft Tissue Assessment Skin and Soft Tissue: Swelling Comments: Mild dorsal wrist edema posturing in left thumb adduction Nerve assessment Ulnar Nerve: Median Nerve: Radial Nerve: Comments: Sensory Assessment Temperature: Light Touch: WFL Proprioception: Vibration: Comments: Ho Right CTS sx Edema Assessment Upper Extremity: Lower Extremity: Comments: WNL Dexterity Assessment Dexterity: WFL Comments: Complaint of pain with pinch on left Special Tests Comments: AROM(PROM) Strength Cervical Cervical Flexion: Cervical Extension: Cervical Lateral Flexion: Cervical Rotation: Comments: Shoulder Flexion: Extension: Abduction: Internal Rotation: External Rotation: Comments: WNL Flexion: Extension: Abduction: Internal Rotation: External Rotation: Comments: Elbow Flexion: Extension: Pronation: Supination: Comments: Flexion: Extension: Pronation: Supination: Comments: Wrist Flexion: R 35 deg L 65 deg Extension: R 40 deg L 65 deg Ulnar Deviation: R 30 L 10 Radial Deviation: R 10 L 5 Comments: Flexion: Extension: Ulnar Deviation: Radial Deviation: Comments: Thumb Thumb CMC Flexion: Thumb MCP Flexion: Thumb IP Flexion: Radial Abduction: Palmar Abduction: R 40 L 30 [place] ([place] 0-10): 7 5 with pain Comments: Complaint at base of left thumb Digits Index MCP: PIP: DIP: Long MCP: PIP: DIP: Ring MCP: PIP: DIP: Small MCP: PIP: DIP: Comments: WNL Gross Grasp: R 40 lb L 0 lb Lateral Pinch: Two-Point Pinch: Three-Jaw Benson: Comments: Patient Education Primary Language: Turkish 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 Patient demonstrates Patient verbalizes Needs reinforcement Barriers to Learning: None Readiness for Learning: Accepting Who was educated? Patient Comments: Plan of Care Assessment: 81 yo female 7 wks s/p left fx due to a fall on a curb. 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 Short Term Goals: Demo indep with HEP Demo indep with jt protection tech Tolerate isometric wrist and hand ther ex Demo light bimanual ADL Wrist ext to > 45 deg Wrist ulnar dev to > 15 deg LTG Duration: 4 wks [facility] Goals: Indep with HEP for left non dominant wrist and hand Left wrist ext > 55 deg Left wrist UD to > 25 deg Gauge And Weigh Machine Adjuster to > 20 lb Mild difficulty with daily activities with use of jt protection tech, activity modifications Frequency and Duration: The patient will be seen 2x wk x 4 wks Treatment Plan: Therapeutic Exercise Therapeutic Activity Home Exercise Program Patient Education ADL Training Ultrasound Paraffin Fluidotherapy Kinesiotaping Electronically Signed By: Catherine Hollins OT CHT CLT Reviewed/agree with student documentation: N/A Therapist: Please sign and return to therapist, Thank you for your referral.
== END 2022-09-01 09:22 | disposition home or self-care (01) ==
LOC: HO.OT 14:30
PROVIDERS: PCP Nurse Practitioner Family; Visit Provider Orthopaedic Surgery
DX: S52.502A Unspecified fracture of the lower end of left radius, initial encounter for closed fracture (principal)
CPT/HCPCS: 97110; 97166